=== PATIENT | male | born 1960 | race Caucasian/White ===

== ENCOUNTER 2018-10-28 15:37 | Emergency (ER) | payer MEDICAID ==
[~2018-10-28] VITALS: Ht 175.3 cm; Wt 118.0 kg
[2018-10-28 15:45] VITALS: BP 149/77
== END 2018-10-28 15:44 | disposition left against medical advice (07) ==
LOC: ER 15:37
DX: Z53.21 Procedure and treatment not carried out due to patient leaving prior to being seen by health care provider (principal)

== ENCOUNTER 2021-08-19 07:01 | Inpatient (IN) | payer OTHER ==
[~2021-08-19] VITALS: Ht 175.3 cm; Wt 102.5 kg
[~2021-08-19 07:01] MED LIST: LEVO500T89 MT
[2021-08-19] MEDS ORDERED: MORPHINE SULFATE 4 MG/ML CPJ (NOT FOR IM USE) IV STA (07:49)
[2021-08-19] MEDS ORDERED: MORPHINE SULFATE 2 MG/ML CPJ (NOT FOR IM USE) IV STA (08:15)
[2021-08-19 08:28] LABS: HEMATOCRIT. 34.6 % (42.0-52.0); HEMOGLOBIN. 10.9 g/dL (14.0-18.0); MEAN CORPUSCULAR HEMOGLOBIN 21.9 pg (28.0-32.0); MEAN CORPUSCULAR VOLUME 69.4 fL (80.0-94.0); MEAN PLATELET VOLUME 7.8 fl (7.4-10.4); PLATELET 382 x1000/uL (130-400); RED BLOOD CELL COUNT 4.99 mill/uL (4.7-6.1); RED CELL DISTRIBUTION WIDTH 22.4 % (11.6-14.6)
[2021-08-19 08:38] LABS: CHLORIDE 99 mEq/L (98-107)
[2021-08-19 08:52] LABS: CLARITY URINE TURBID (CLEAR); COLOR URINE YELLOW (YELLOW); KETONES URINE 2+ (NEGATIVE); LEUKOCYTE ESTERASE URINE 3+ (NEGATIVE); NITRITE URINE POSITIVE (NEGATIVE); OCCULT BLOOD URINE 2+ (NEGATIVE); PROTEIN URINE 2+ (NEGATIVE); SPECIFIC GRAVITY URINE 1.018 (1.005-1.030); UROBILINOGEN URINE 0.2 E.U./dL (0.2-1.0)
[2021-08-19] MEDS ORDERED: MORPHINE SULFATE 4 MG/ML CPJ (NOT FOR IM USE) IV ONE ×2 (09:15→11:00)
[2021-08-19 09:30] LABS: PLATELET ESTIMATE NORMAL
[2021-08-19] MEDS ORDERED: LEVOFLOXACIN 750MG PREMIX 150 ML IV ONE (09:30)
[2021-08-19] MEDS ORDERED: MORPHINE SULFATE 2 MG/ML CPJ (NOT FOR IM USE) IV ONE (09:45)
[2021-08-19] MEDS ORDERED: ONDANSETRON HCL 4MG/2ML INJ ONE (11:59)
[2021-08-19] MEDS ORDERED: ONDANSETRON HCL 4MG/2ML INJ IV ONE (12:30)
[2021-08-19] MEDS ORDERED: IPRATROPIUM/ALBUTEROL 0.5-3(2.5)MG/3ML NEB HHN PRN (13:15)
[2021-08-19] MEDS ORDERED: CLONIDINE 0.1MG TABLET PO PRN (13:15)
[2021-08-19] MEDS ORDERED: ACETAMINOPHEN 325MG TABLET PO PRN (13:15)
[2021-08-19] MEDS ORDERED: CEFTRIAXONE 1 G PREMIX 50 ML IV SCH ×2 (13:15)
[2021-08-19] MEDS: MORPHINE SULFATE 2 MG/ML CPJ (NOT FOR IM USE) IV PRN ×3 (14:33→22:29)
[2021-08-19] MEDS ORDERED: DEXTROSE 50% WATER 50ML SYRINGE IV PRN (15:00)
[2021-08-19] MEDS: DIPHENHYDRAMINE 50MG/ML VIAL IV PRN (16:44)
[2021-08-19] MEDS ORDERED: BLOOD SUGAR DIAGNOSTIC STRIP TEST SCH (17:00)
[2021-08-19] MEDS: INSULIN LISPRO 100 UNITS/ML SUBCUT SCH ×2 (18:24→22:52)
[2021-08-19 21:35] VITALS: BP 127/78
[2021-08-19 21:43] LABS: INR 1.9; PROTHROMBIN TIME 19.8 sec (9.6-11.0)
[2021-08-20] VITALS: BP 140/74
[2021-08-20] MEDS ORDERED: DEXTROSE 50% WATER 50ML SYRINGE IV PRN (00:15)
[2021-08-20] MEDS ORDERED: CLONIDINE 0.1MG TABLET PO PRN (00:15)
[2021-08-20] MEDS: INSULIN LISPRO 100 UNITS/ML SUBCUT SCH ×5 (00:30→21:14)
[2021-08-20] MEDS: BLOOD SUGAR DIAGNOSTIC STRIP TEST SCH ×5 (00:30→21:18)
[2021-08-20] MEDS ORDERED: NALOXONE HCL 0.4MG/ML VIAL IV PRN (00:30)
[2021-08-20] MEDS: SODIUM CHLORIDE 0.9% 1,000 ML IV SCH (02:40)
[2021-08-20] MEDS: MORPHINE SULFATE 2 MG/ML CPJ (NOT FOR IM USE) IV PRN ×5 (02:41→20:59)
[2021-08-20] MEDS: ONDANSETRON HCL 4MG/2ML INJ IV PRN ×3 (03:08→15:56)
[2021-08-20 08:00] VITALS: BP 98/59
[2021-08-20] MEDS: ACETAMINOPHEN 325MG TABLET PO PRN ×2 (08:20→18:10)
[2021-08-20 09:45] LABS: BASOPHILS % 0.8 % (0.0-2.0); EOSINOPHILS % 1.7 % (0.0-5.0); HEMATOCRIT. 34.2 % (42.0-52.0); HEMOGLOBIN. 10.7 g/dL (14.0-18.0); LYMPHOCYTES % 35.9 % (20.0-50.0); MEAN CORPUSCULAR HEMOGLOBIN 21.6 pg (28.0-32.0); MEAN CORPUSCULAR VOLUME 69.1 fL (80.0-94.0); MEAN PLATELET VOLUME 7.6 fl (7.4-10.4); MONOCYTES % 12.4 % (2.0-8.0); NEUTROPHILS % 49.2 % (40.0-76.0); PLATELET 402 x1000/uL (130-400); RED BLOOD CELL COUNT 4.95 mill/uL (4.7-6.1); RED CELL DISTRIBUTION WIDTH 23.6 % (11.6-14.6)
[2021-08-20 09:52] LABS: CHLORIDE 102 mEq/L (98-107)
[2021-08-20 09:59] LABS: LDL CHOLESTEROL 60 mg/dL (5-100)
[2021-08-20 10:00] LABS: HDL CHOLESTEROL 39 mg/dL (40-59)
[2021-08-20 12:00] VITALS: BP 114/61
[2021-08-20] MEDS: CEFTRIAXONE 1,000 MG in DEXTROSE 5% WATER 50 ML IV SCH (12:30)
[2021-08-20] MEDS ORDERED: CEFTRIAXONE 1,000 MG in DEXTROSE 5% WATER 50 ML IV SCH (13:00)
[2021-08-20] MEDS: ENOXAPARIN 30MG/0.3ML SYR SUBCUT SCH ×2 (13:32→20:57)
[2021-08-20] MEDS: INSULIN GLARGINE UD 100 UNITS/ML SYR SUBCUT SCH ×2 (14:37→21:18)
[2021-08-20 16:00] VITALS: BP 116/64
[2021-08-20 16:46] LABS: INR 1.7; PROTHROMBIN TIME 17.5 sec (9.6-11.0)
[2021-08-20] MEDS ORDERED: HYDROCODONE/ACETAMINOPHEN 5/325MG TABLET PO PRN (18:45)
[2021-08-20 20:00] VITALS: BP 135/86
[2021-08-20] MEDS: HYDROCODONE/ACETAMINOPHEN 10/325MG TABLET PO PRN (22:31)
[2021-08-21] VITALS: BP 145/84
[2021-08-21] MEDS: SODIUM CHLORIDE 0.9% 1,000 ML IV SCH ×2 (03:19→08:19)
[2021-08-21] MEDS: MORPHINE SULFATE 2 MG/ML CPJ (NOT FOR IM USE) IV PRN ×4 (03:24→20:05)
[2021-08-21] MEDS: ONDANSETRON HCL 4MG/2ML INJ IV PRN ×2 (03:32→10:45)
[2021-08-21 04:00] VITALS: BP 150/82
[2021-08-21] MEDS: HYDROCODONE/ACETAMINOPHEN 10/325MG TABLET PO PRN ×3 (05:39→18:22)
[2021-08-21] MEDS: INSULIN LISPRO 100 UNITS/ML SUBCUT SCH ×4 (05:50→21:55)
[2021-08-21] MEDS: BLOOD SUGAR DIAGNOSTIC STRIP TEST SCH ×4 (05:50→20:11)
[2021-08-21] MEDS: ENOXAPARIN 30MG/0.3ML SYR SUBCUT SCH ×2 (08:08→20:10)
[2021-08-21 09:43] LABS: BASOPHILS % 1.1 % (0.0-2.0); EOSINOPHILS % 2.6 % (0.0-5.0); HEMATOCRIT. 32.9 % (42.0-52.0); HEMOGLOBIN. 10.5 g/dL (14.0-18.0); LYMPHOCYTES % 40.9 % (20.0-50.0); MEAN CORPUSCULAR HEMOGLOBIN 22.6 pg (28.0-32.0); MEAN CORPUSCULAR VOLUME 70.7 fL (80.0-94.0); MEAN PLATELET VOLUME 8.7 fl (7.4-10.4); MONOCYTES % 11.7 % (2.0-8.0); NEUTROPHILS % 43.7 % (40.0-76.0); PLATELET 322 x1000/uL (130-400); RED BLOOD CELL COUNT 4.65 mill/uL (4.7-6.1); RED CELL DISTRIBUTION WIDTH 23.3 % (11.6-14.6)
[2021-08-21 09:56] LABS: CHLORIDE 103 mEq/L (98-107)
[2021-08-21] MEDS: INSULIN GLARGINE UD 100 UNITS/ML SYR SUBCUT SCH ×2 (10:46→21:55)
[2021-08-21] MEDS: CEFTRIAXONE 1,000 MG in DEXTROSE 5% WATER 50 ML IV SCH (11:58)
[2021-08-21] MEDS: DULOXETINE HCL 30MG DR CAPSULE PO SCH ×2 (12:05→20:10)
[2021-08-21 20:03] VITALS: BP 122/67
[2021-08-22] VITALS: BP 156/75
[2021-08-22] MEDS: MORPHINE SULFATE 2 MG/ML CPJ (NOT FOR IM USE) IV PRN ×6 (00:23→20:57)
[2021-08-22] MEDS: ONDANSETRON HCL 4MG/2ML INJ IV PRN ×3 (00:32→20:07)
[2021-08-22] MEDS: SODIUM CHLORIDE 0.9% 1,000 ML IV SCH ×2 (00:34→18:43)
[2021-08-22 04:00] VITALS: BP 128/58
[2021-08-22] MEDS: BLOOD SUGAR DIAGNOSTIC STRIP TEST SCH ×4 (06:17→21:39)
[2021-08-22] MEDS: INSULIN LISPRO 100 UNITS/ML SUBCUT SCH ×4 (06:28→21:39)
[2021-08-22] MEDS: HYDROCODONE/ACETAMINOPHEN 10/325MG TABLET PO PRN ×5 (06:29→23:17)
[2021-08-22 08:04] LABS: BASOPHILS % 0.5 % (0.0-2.0); EOSINOPHILS % 3.6 % (0.0-5.0); HEMATOCRIT. 32.7 % (42.0-52.0); HEMOGLOBIN. 10.1 g/dL (14.0-18.0); LYMPHOCYTES % 45.5 % (20.0-50.0); MEAN CORPUSCULAR HEMOGLOBIN 21.8 pg (28.0-32.0); MEAN CORPUSCULAR VOLUME 70.7 fL (80.0-94.0); MEAN PLATELET VOLUME 7.8 fl (7.4-10.4); MONOCYTES % 10.3 % (2.0-8.0); NEUTROPHILS % 40.1 % (40.0-76.0); PLATELET 313 x1000/uL (130-400); RED BLOOD CELL COUNT 4.63 mill/uL (4.7-6.1); RED CELL DISTRIBUTION WIDTH 23.7 % (11.6-14.6)
[2021-08-22 08:08] LABS: CHLORIDE 106 mEq/L (98-107)
[2021-08-22 08:14] VITALS: BP 131/86
[2021-08-22] MEDS: ENOXAPARIN 30MG/0.3ML SYR SUBCUT SCH ×2 (08:37→20:57)
[2021-08-22] MEDS: DULOXETINE HCL 30MG DR CAPSULE PO SCH ×2 (08:37→20:57)
[2021-08-22] MEDS: INSULIN GLARGINE UD 100 UNITS/ML SYR SUBCUT SCH ×2 (10:50→21:38)
[2021-08-22 12:27] VITALS: BP 151/88
[2021-08-22] MEDS: CEFTRIAXONE 1,000 MG in DEXTROSE 5% WATER 50 ML IV SCH (12:38)
[2021-08-22 16:34] VITALS: BP 129/68
[2021-08-22 20:00] VITALS: BP 131/71
[2021-08-23] VITALS: BP 164/87
[2021-08-23] MEDS: MORPHINE SULFATE 2 MG/ML CPJ (NOT FOR IM USE) IV PRN ×5 (03:45→22:56)
[2021-08-23 04:00] VITALS: BP 150/78
[2021-08-23] MEDS: HYDROCODONE/ACETAMINOPHEN 10/325MG TABLET PO PRN ×3 (06:18→21:28)
[2021-08-23] MEDS: BLOOD SUGAR DIAGNOSTIC STRIP TEST SCH ×4 (06:22→21:00)
[2021-08-23] MEDS: INSULIN LISPRO 100 UNITS/ML SUBCUT SCH ×4 (06:23→21:31)
[2021-08-23 08:00] VITALS: BP 129/75
[2021-08-23] MEDS: DULOXETINE HCL 30MG DR CAPSULE PO SCH ×2 (09:27→21:28)
[2021-08-23] MEDS: ONDANSETRON HCL 4MG/2ML INJ IV PRN (09:27)
[2021-08-23] MEDS: INSULIN GLARGINE UD 100 UNITS/ML SYR SUBCUT SCH ×2 (09:27→21:30)
[2021-08-23] MEDS: ENOXAPARIN 30MG/0.3ML SYR SUBCUT SCH ×2 (09:29→21:31)
[2021-08-23] MEDS: SODIUM CHLORIDE 0.9% 1,000 ML IV SCH (11:35)
[2021-08-23 11:56] LABS: BASOPHILS % 0.8 % (0.0-2.0); HEMATOCRIT. 32.6 % (42.0-52.0); HEMOGLOBIN. 10.2 g/dL (14.0-18.0); LYMPHOCYTES % 31.8 % (20.0-50.0); MEAN CORPUSCULAR HEMOGLOBIN 22.1 pg (28.0-32.0); MEAN CORPUSCULAR VOLUME 70.5 fL (80.0-94.0); MONOCYTES % 7.7 % (2.0-8.0); NEUTROPHILS % 56.7 % (40.0-76.0); PLATELET 326 x1000/uL (130-400); RED BLOOD CELL COUNT 4.62 mill/uL (4.7-6.1); RED CELL DISTRIBUTION WIDTH 23.8 % (11.6-14.6)
[2021-08-23 11:59] LABS: CHLORIDE 104 mEq/L (98-107)
[2021-08-23 12:26] VITALS: BP 125/65
[2021-08-23] MEDS: CEFTRIAXONE 1,000 MG in DEXTROSE 5% WATER 50 ML IV SCH (14:04)
[2021-08-23 16:20] VITALS: BP 127/70
[2021-08-23] MEDS ORDERED: COLISTIMETHATE SODIUM 300 MG in SODIUM CHLORIDE 0.9% 100 ML IV NR (19:00)
[2021-08-23 20:00] VITALS: BP 142/79
[2021-08-24] VITALS: BP 138/69
[2021-08-24] MEDS: DIPHENHYDRAMINE 50MG/ML VIAL IV PRN (00:59)
[2021-08-24] MEDS: MORPHINE SULFATE 2 MG/ML CPJ (NOT FOR IM USE) IV PRN ×4 (03:01→23:13)
[2021-08-24 04:00] VITALS: BP 119/72
[2021-08-24] MEDS: COLISTIMETHATE 150MG in SODIUM CHLORIDE 0.9% 100ML IV SCH (04:32)
[2021-08-24] MEDS: SODIUM CHLORIDE 0.9% 1,000 ML IV SCH ×2 (04:32→20:48)
[2021-08-24] MEDS: BLOOD SUGAR DIAGNOSTIC STRIP TEST SCH ×4 (06:12→20:48)
[2021-08-24] MEDS: INSULIN LISPRO 100 UNITS/ML SUBCUT SCH ×4 (06:13→20:48)
[2021-08-24 07:16] LABS: BASOPHILS % 0.9 % (0.0-2.0); EOSINOPHILS % 3.9 % (0.0-5.0); HEMATOCRIT. 32.5 % (42.0-52.0); HEMOGLOBIN. 10.1 g/dL (14.0-18.0); LYMPHOCYTES % 43.5 % (20.0-50.0); MEAN CORPUSCULAR HEMOGLOBIN 21.7 pg (28.0-32.0); MEAN CORPUSCULAR VOLUME 69.8 fL (80.0-94.0); MEAN PLATELET VOLUME 7.8 fl (7.4-10.4); MONOCYTES % 8.6 % (2.0-8.0); NEUTROPHILS % 43.1 % (40.0-76.0); PLATELET 304 x1000/uL (130-400); RED BLOOD CELL COUNT 4.65 mill/uL (4.7-6.1); RED CELL DISTRIBUTION WIDTH 23.5 % (11.6-14.6)
[2021-08-24 08:00] VITALS: BP 140/82
[2021-08-24 08:11] LABS: CHLORIDE 107 mEq/L (98-107)
[2021-08-24] MEDS: DULOXETINE HCL 30MG DR CAPSULE PO SCH ×2 (09:24→20:48)
[2021-08-24] MEDS: HYDROCODONE/ACETAMINOPHEN 10/325MG TABLET PO PRN ×3 (09:25→21:27)
[2021-08-24] MEDS: ONDANSETRON HCL 4MG/2ML INJ IV PRN (09:26)
[2021-08-24] MEDS: ENOXAPARIN 30MG/0.3ML SYR SUBCUT SCH ×2 (09:26→20:48)
[2021-08-24] MEDS: INSULIN GLARGINE UD 100 UNITS/ML SYR SUBCUT SCH ×2 (10:27→21:26)
[2021-08-24 12:00] VITALS: BP 120/82
[2021-08-24 16:00] VITALS: BP 118/80
[2021-08-24 20:00] VITALS: BP 151/76
[2021-08-25] VITALS: BP 132/77
[2021-08-25] MEDS: MORPHINE SULFATE 2 MG/ML CPJ (NOT FOR IM USE) IV PRN ×5 (03:45→21:25)
[2021-08-25 03:58] VITALS: BP 127/67
[2021-08-25] MEDS: BLOOD SUGAR DIAGNOSTIC STRIP TEST SCH ×4 (06:10→21:23)
[2021-08-25] MEDS: HYDROCODONE/ACETAMINOPHEN 10/325MG TABLET PO PRN (06:15)
[2021-08-25] MEDS: INSULIN LISPRO 100 UNITS/ML SUBCUT SCH ×4 (06:15→21:24)
[2021-08-25] MEDS: COLISTIMETHATE 150MG in SODIUM CHLORIDE 0.9% 100ML IV SCH ×2 (06:21→17:24)
[2021-08-25 08:00] VITALS: BP 139/87
[2021-08-25] MEDS: DULOXETINE HCL 30MG DR CAPSULE PO SCH ×2 (08:39→22:36)
[2021-08-25] MEDS: ENOXAPARIN 30MG/0.3ML SYR SUBCUT SCH ×2 (08:39→21:22)
[2021-08-25 12:00] VITALS: BP 150/80
[2021-08-25] MEDS ORDERED: NALOXONE HCL 0.4MG/ML VIAL IV PRN (12:45)
[2021-08-25] MEDS: INSULIN GLARGINE UD 100 UNITS/ML SYR SUBCUT SCH ×2 (12:47→22:31)
[2021-08-25] MEDS: SODIUM CHLORIDE 0.9% 1,000 ML IV SCH (13:35)
[2021-08-25 15:57] LABS: BASOPHILS % 1.1 % (0.0-2.0); EOSINOPHILS % 3.3 % (0.0-5.0); HEMATOCRIT. 33.5 % (42.0-52.0); HEMOGLOBIN. 10.2 g/dL (14.0-18.0); LYMPHOCYTES % 37.7 % (20.0-50.0); MEAN CORPUSCULAR HEMOGLOBIN 21.1 pg (28.0-32.0); MEAN CORPUSCULAR VOLUME 69.7 fL (80.0-94.0); MEAN PLATELET VOLUME 8.3 fl (7.4-10.4); MONOCYTES % 8.6 % (2.0-8.0); NEUTROPHILS % 49.3 % (40.0-76.0); PLATELET 342 x1000/uL (130-400); RED BLOOD CELL COUNT 4.81 mill/uL (4.7-6.1); RED CELL DISTRIBUTION WIDTH 23.4 % (11.6-14.6)
[2021-08-25 16:00] VITALS: BP 117/68
[2021-08-25 16:16] LABS: CHLORIDE 107 mEq/L (98-107)
[2021-08-25 20:00] VITALS: BP 121/74
[2021-08-25] MEDS: LAMOTRIGINE 25MG TABLET PO SCH (21:23)
[2021-08-25] MEDS: DIPHENHYDRAMINE 50MG/ML VIAL IV PRN (22:30)
[2021-08-26] VITALS: BP 132/79
[2021-08-26] MEDS ORDERED: MORPHINE SULFATE 2 MG/ML CPJ (NOT FOR IM USE) IV PRN (01:30)
[2021-08-26] MEDS ORDERED: KCL 20MEQ/100ML PREMIX 100 ML IV NR (02:00)
[2021-08-26] MEDS: ONDANSETRON HCL 4MG/2ML INJ IV PRN ×2 (02:15→15:19)
[2021-08-26] MEDS: DIPHENHYDRAMINE 50MG/ML VIAL IV PRN ×5 (03:07→23:47)
[2021-08-26 03:42] VITALS: BP 128/86
[2021-08-26] MEDS: SODIUM CHLORIDE 0.9% 1,000 ML IV SCH (06:29)
[2021-08-26] MEDS: COLISTIMETHATE 150MG in SODIUM CHLORIDE 0.9% 100ML IV SCH ×2 (06:29→17:21)
[2021-08-26] MEDS: BLOOD SUGAR DIAGNOSTIC STRIP TEST SCH ×4 (06:30→20:42)
[2021-08-26] MEDS: INSULIN LISPRO 100 UNITS/ML SUBCUT SCH ×4 (06:30→21:15)
[2021-08-26 08:00] VITALS: BP 127/79
[2021-08-26] MEDS: DULOXETINE HCL 30MG DR CAPSULE PO SCH ×2 (09:16→20:07)
[2021-08-26] MEDS: LAMOTRIGINE 25MG TABLET PO SCH ×2 (09:16→20:07)
[2021-08-26] MEDS: ENOXAPARIN 30MG/0.3ML SYR SUBCUT SCH ×2 (09:16→20:06)
[2021-08-26] MEDS: MORPHINE SULFATE 2 MG/ML CPJ (NOT FOR IM USE) IV PRN ×4 (09:17→23:47)
[2021-08-26] MEDS: INSULIN GLARGINE UD 100 UNITS/ML SYR SUBCUT SCH ×2 (10:00→21:14)
[2021-08-26] MEDS: ACETAMINOPHEN 325MG TABLET PO PRN (11:50)
[2021-08-26 12:00] VITALS: BP 143/82
[2021-08-26 15:28] LABS: BASOPHILS % 0.6 % (0.0-2.0); EOSINOPHILS % 2.3 % (0.0-5.0); HEMOGLOBIN. 8.5 g/dL (14.0-18.0); MEAN CORPUSCULAR HEMOGLOBIN 21.6 pg (28.0-32.0); MEAN CORPUSCULAR VOLUME 70.8 fL (80.0-94.0); MEAN PLATELET VOLUME 7.9 fl (7.4-10.4); MONOCYTES % 9.7 % (2.0-8.0); NEUTROPHILS % 45.4 % (40.0-76.0); PLATELET 273 x1000/uL (130-400); RED BLOOD CELL COUNT 3.95 mill/uL (4.7-6.1); RED CELL DISTRIBUTION WIDTH 23.1 % (11.6-14.6)
[2021-08-26 15:38] LABS: CHLORIDE 116 mEq/L (98-107)
[2021-08-26 16:00] VITALS: BP 147/84
[2021-08-26] MEDS ORDERED: POTASSIUM CHLORIDE 20MEQ TABLET SR PO NR (16:30)
[2021-08-26] MEDS ORDERED: KCL 20MEQ/100ML PREMIX 100 ML IV SCH ×2 (17:30→20:00)
[2021-08-26 20:00] VITALS: BP 141/77
[2021-08-27] VITALS: BP 131/77
[2021-08-27] MEDS ORDERED: KCL 20MEQ/100ML PREMIX 100 ML IV NR (02:00)
[2021-08-27] MEDS: DIPHENHYDRAMINE 50MG/ML VIAL IV PRN ×5 (03:45→21:23)
[2021-08-27] MEDS: MORPHINE SULFATE 2 MG/ML CPJ (NOT FOR IM USE) IV PRN ×5 (03:46→21:11)
[2021-08-27 04:00] VITALS: BP 129/79
[2021-08-27] MEDS: COLISTIMETHATE 150MG in SODIUM CHLORIDE 0.9% 100ML IV SCH ×2 (05:38→18:12)
[2021-08-27 07:04] LABS: CHLORIDE 107 mEq/L (98-107)
[2021-08-27] MEDS: BLOOD SUGAR DIAGNOSTIC STRIP TEST SCH ×4 (07:10→21:00)
[2021-08-27] MEDS: INSULIN LISPRO 100 UNITS/ML SUBCUT SCH ×4 (07:40→21:00)
[2021-08-27 08:00] VITALS: BP 131/81
[2021-08-27] MEDS: ENOXAPARIN 30MG/0.3ML SYR SUBCUT SCH ×2 (08:13→21:19)
[2021-08-27] MEDS: DULOXETINE HCL 30MG DR CAPSULE PO SCH ×2 (08:14→21:19)
[2021-08-27] MEDS: LAMOTRIGINE 25MG TABLET PO SCH ×2 (08:14→21:19)
[2021-08-27] MEDS: INSULIN GLARGINE UD 100 UNITS/ML SYR SUBCUT SCH ×2 (10:00→21:21)
[2021-08-27 12:00] VITALS: BP 103/68
[2021-08-27] MEDS ORDERED: MAGNESIUM 2 G PREMIX 50 ML IV NR (13:30)
[2021-08-27] MEDS: ONDANSETRON HCL 4MG/2ML INJ IV PRN (14:55)
[2021-08-27 16:00] VITALS: BP 128/79
[2021-08-27] MEDS: ACETAMINOPHEN 325MG TABLET PO PRN (18:12)
[2021-08-27 20:00] VITALS: BP 135/81
[2021-08-28] VITALS: BP 140/66
[2021-08-28] MEDS: DIPHENHYDRAMINE 50MG/ML VIAL IV PRN ×4 (01:17→15:29)
[2021-08-28] MEDS: MORPHINE SULFATE 2 MG/ML CPJ (NOT FOR IM USE) IV PRN ×5 (01:21→21:23)
[2021-08-28] MEDS: ONDANSETRON HCL 4MG/2ML INJ IV PRN ×4 (01:28→20:46)
[2021-08-28 04:00] VITALS: BP 132/83
[2021-08-28] MEDS: COLISTIMETHATE 150MG in SODIUM CHLORIDE 0.9% 100ML IV SCH ×2 (05:30→18:16)
[2021-08-28 06:42] LABS: BASOPHILS % 1.2 % (0.0-2.0); EOSINOPHILS % 2.9 % (0.0-5.0); HEMATOCRIT. 37.1 % (42.0-52.0); HEMOGLOBIN. 11.2 g/dL (14.0-18.0); LYMPHOCYTES % 37.4 % (20.0-50.0); MEAN CORPUSCULAR HEMOGLOBIN 21.3 pg (28.0-32.0); MEAN CORPUSCULAR VOLUME 70.7 fL (80.0-94.0); MEAN PLATELET VOLUME 8.5 fl (7.4-10.4); MONOCYTES % 13.2 % (2.0-8.0); NEUTROPHILS % 45.3 % (40.0-76.0); PLATELET 372 x1000/uL (130-400); RED BLOOD CELL COUNT 5.24 mill/uL (4.7-6.1); RED CELL DISTRIBUTION WIDTH 23.6 % (11.6-14.6)
[2021-08-28 06:55] LABS: CHLORIDE 106 mEq/L (98-107)
[2021-08-28] MEDS: BLOOD SUGAR DIAGNOSTIC STRIP TEST SCH ×4 (07:10→21:42)
[2021-08-28] MEDS: INSULIN LISPRO 100 UNITS/ML SUBCUT SCH ×4 (07:40→21:00)
[2021-08-28 08:00] VITALS: BP 140/85
[2021-08-28] MEDS: LAMOTRIGINE 25MG TABLET PO SCH ×2 (08:32→21:06)
[2021-08-28] MEDS: DULOXETINE HCL 30MG DR CAPSULE PO SCH ×2 (08:32→21:07)
[2021-08-28] MEDS: ENOXAPARIN 30MG/0.3ML SYR SUBCUT SCH ×2 (08:33→21:06)
[2021-08-28] MEDS: INSULIN GLARGINE UD 100 UNITS/ML SYR SUBCUT SCH ×2 (09:57→22:00)
[2021-08-28 12:00] VITALS: BP 138/84
[2021-08-28 16:00] VITALS: BP 156/88
[2021-08-28 20:00] VITALS: BP 131/78
[2021-08-28] MEDS: ACETAMINOPHEN 325MG TABLET PO PRN (20:46)
[2021-08-29] VITALS (7 sets, daily range): BP systolic 96–144; BP diastolic 66–88
[2021-08-29] MEDS: DIPHENHYDRAMINE 50MG/ML VIAL IV PRN ×3 (01:02→22:19)
[2021-08-29] MEDS: ONDANSETRON HCL 4MG/2ML INJ IV PRN ×3 (01:28→21:28)
[2021-08-29] MEDS: MORPHINE SULFATE 2 MG/ML CPJ (NOT FOR IM USE) IV PRN ×5 (01:31→21:21)
[2021-08-29] MEDS: COLISTIMETHATE 150MG in SODIUM CHLORIDE 0.9% 100ML IV SCH ×2 (06:18→19:41)
[2021-08-29] MEDS: BLOOD SUGAR DIAGNOSTIC STRIP TEST SCH ×4 (07:10→21:21)
[2021-08-29] MEDS: INSULIN LISPRO 100 UNITS/ML SUBCUT SCH ×4 (07:40→21:00)
[2021-08-29 07:42] LABS: CHLORIDE 104 mEq/L (98-107)
[2021-08-29 07:53] LABS: BASOPHILS % 0.8 % (0.0-2.0); HEMATOCRIT. 38.1 % (42.0-52.0); HEMOGLOBIN. 11.8 g/dL (14.0-18.0); LYMPHOCYTES % 29.6 % (20.0-50.0); MEAN CORPUSCULAR HEMOGLOBIN 22.1 pg (28.0-32.0); MEAN CORPUSCULAR VOLUME 71.8 fL (80.0-94.0); MEAN PLATELET VOLUME 8.6 fl (7.4-10.4); MONOCYTES % 9.6 % (2.0-8.0); PLATELET 394 x1000/uL (130-400); RED BLOOD CELL COUNT 5.31 mill/uL (4.7-6.1); RED CELL DISTRIBUTION WIDTH 24.5 % (11.6-14.6)
[2021-08-29] MEDS: DULOXETINE HCL 30MG DR CAPSULE PO SCH ×2 (09:06→21:21)
[2021-08-29] MEDS: LAMOTRIGINE 25MG TABLET PO SCH ×2 (09:06→21:21)
[2021-08-29] MEDS: ENOXAPARIN 30MG/0.3ML SYR SUBCUT SCH ×2 (09:06→21:29)
[2021-08-29] MEDS: INSULIN GLARGINE UD 100 UNITS/ML SYR SUBCUT SCH ×2 (11:37→22:00)
[2021-08-30] VITALS: BP 129/85
[2021-08-30] MEDS: MORPHINE SULFATE 2 MG/ML CPJ (NOT FOR IM USE) IV PRN ×3 (03:11→14:06)
[2021-08-30] MEDS: DIPHENHYDRAMINE 50MG/ML VIAL IV PRN (03:11)
[2021-08-30 04:00] VITALS: BP 131/81
[2021-08-30 06:36] LABS: BASOPHILS % 0.8 % (0.0-2.0); EOSINOPHILS % 2.5 % (0.0-5.0); HEMATOCRIT. 35.6 % (42.0-52.0); HEMOGLOBIN. 11.1 g/dL (14.0-18.0); LYMPHOCYTES % 27.9 % (20.0-50.0); MEAN CORPUSCULAR HEMOGLOBIN 22.2 pg (28.0-32.0); MEAN PLATELET VOLUME 8.8 fl (7.4-10.4); NEUTROPHILS % 56.8 % (40.0-76.0); PLATELET 383 x1000/uL (130-400); RED BLOOD CELL COUNT 5.02 mill/uL (4.7-6.1); RED CELL DISTRIBUTION WIDTH 24.1 % (11.6-14.6)
[2021-08-30 06:38] LABS: CHLORIDE 104 mEq/L (98-107)
[2021-08-30] MEDS: BLOOD SUGAR DIAGNOSTIC STRIP TEST SCH ×2 (06:57→12:39)
[2021-08-30] MEDS: INSULIN LISPRO 100 UNITS/ML SUBCUT SCH ×2 (07:50→13:02)
[2021-08-30 08:00] VITALS: BP 144/89
[2021-08-30] MEDS: DULOXETINE HCL 30MG DR CAPSULE PO SCH (09:15)
[2021-08-30] MEDS: LAMOTRIGINE 25MG TABLET PO SCH (09:15)
[2021-08-30] MEDS: ONDANSETRON HCL 4MG/2ML INJ IV PRN (09:16)
[2021-08-30] MEDS: ENOXAPARIN 30MG/0.3ML SYR SUBCUT SCH (09:16)
[2021-08-30] MEDS: INSULIN GLARGINE UD 100 UNITS/ML SYR SUBCUT SCH (09:32)
[2021-08-30] MEDS ORDERED: LAM25 PO (10:30)
[2021-08-30] MEDS ORDERED: DULO30CA2 PO (10:30)
[2021-08-30 12:00] VITALS: BP 133/84
[2021-08-30 13:18] VITALS: BP 144/89
[2021-08-30 14:06] VITALS: BP 135/87
[2021-08-30] MEDS ORDERED: ENOXAPARIN 30MG/0.3ML SYR SUBCUT SCH (21:00)
== END 2021-08-30 15:32 | disposition home health service (06) | DRG 463 ==
LOC: ER 07:01 → EDBEDREQ 12:30 → ENRESERV 20:25 → 8WST 21:41 → 6EST 08-29 09:47
PROVIDERS: ADMIT Internal Medicine; ATTEND Internal Medicine
DX: N30.00 Acute cystitis without hematuria (principal); L89.153 Pressure ulcer of sacral region, stage 3; D68.9 Coagulation defect, unspecified; E46 Unspecified protein-calorie malnutrition; I11.0 Hypertensive heart disease with heart failure; L89.213 Pressure ulcer of right hip, stage 3; I50.32 Chronic diastolic (congestive) heart failure; F33.1 Major depressive disorder, recurrent, moderate; E11.65 Type 2 diabetes mellitus with hyperglycemia; B96.1 Klebsiella pneumoniae [K. pneumoniae] as the cause of diseases classified elsewhere; K76.0 Fatty (change of) liver, not elsewhere classified; K40.20 Bilateral inguinal hernia, without obstruction or gangrene, not specified as recurrent; K42.9 Umbilical hernia without obstruction or gangrene; M51.16 Intervertebral disc disorders with radiculopathy, lumbar region; K57.90 Diverticulosis of intestine, part unspecified, without perforation or abscess without bleeding; K80.20 Calculus of gallbladder without cholecystitis without obstruction; Z16.19 Resistance to other specified beta lactam antibiotics; M79.604 Pain in right leg; M79.605 Pain in left leg; F41.9 Anxiety disorder, unspecified; M47.20 Other spondylosis with radiculopathy, site unspecified; K44.9 Diaphragmatic hernia without obstruction or gangrene; R00.0 Tachycardia, unspecified; E78.00 Pure hypercholesterolemia, unspecified; F43.10 Post-traumatic stress disorder, unspecified; I25.2 Old myocardial infarction; Z79.4 Long term (current) use of insulin; Z85.46 Personal history of malignant neoplasm of prostate; Z95.828 Presence of other vascular implants and grafts; Z86.718 Personal history of other venous thrombosis and embolism; Z68.33 Body mass index [BMI] 33.0-33.9, adult
CPT/HCPCS: 36415; 74176; 80048; 80053; 80061; 81003; 82040; 82962; 83036; 83735; 84134; 84145; 84443; 85025; 87077; 87186; 93005; 93970; 97163; 99285; C1893; J0696; J0770; J1200; J1650; J1815; J1956; J2270; J2405; J3475; J3480; J7030; J7050; J7060

== ENCOUNTER 2021-09-11 13:50 | Emergency (ER) | payer OTHER ==
[~2021-09-11] VITALS: Ht 177.8 cm; Wt 95.0 kg
[~2021-09-11 13:50] MED LIST changes: +DULO30CA2 PO; +LAM25 PO; -LEVO500T89 MT
[2021-09-11] MEDS ORDERED: MORPHINE SULFATE 4 MG/ML CPJ (NOT FOR IM USE) IV STA (16:56)
[2021-09-11 18:04] LABS: BASOPHILS % 0.8 % (0.0-2.0); EOSINOPHILS % 3.6 % (0.0-5.0); HEMOGLOBIN. 9.9 g/dL (14.0-18.0); LYMPHOCYTES % 31.4 % (20.0-50.0); MEAN CORPUSCULAR HEMOGLOBIN 21.4 pg (28.0-32.0); MEAN PLATELET VOLUME 6.9 fl (7.4-10.4); NEUTROPHILS % 56.2 % (40.0-76.0); PLATELET 309 x1000/uL (130-400); RED BLOOD CELL COUNT 4.66 mill/uL (4.7-6.1); RED CELL DISTRIBUTION WIDTH 24.5 % (11.6-14.6)
[2021-09-11 18:11] LABS: CHLORIDE 107 mEq/L (98-107)
[2021-09-11] MEDS ORDERED: KETOROLAC 60MG/2ML VIAL IM ONE (18:15)
[2021-09-11 18:44] LABS: PLATELET ESTIMATE NORMAL
[2021-09-11] MEDS ORDERED: MORPHINE SULFATE 4 MG/ML CPJ (NOT FOR IM USE) IV SCH (21:30)
[2021-09-12 00:35] LABS: CLARITY URINE TURBID (CLEAR); COLOR URINE YELLOW (YELLOW); KETONES URINE NEGATIVE (NEGATIVE); LEUKOCYTE ESTERASE URINE 3+ (NEGATIVE); NITRITE URINE POSITIVE (NEGATIVE); OCCULT BLOOD URINE 3+ (NEGATIVE); PH URINE 5.5 (4.5-8.0); PROTEIN URINE 2+ (NEGATIVE); SPECIFIC GRAVITY URINE 1.013 (1.005-1.030); UROBILINOGEN URINE 0.2 E.U./dL (0.2-1.0)
[2021-09-12 05:06] VITALS: BP 151/81
== END 2021-09-12 05:07 | disposition home or self-care (01) ==
LOC: ER 13:50
DX: G89.29 Other chronic pain (principal); M54.50 Low back pain, unspecified; M79.662 Pain in left lower leg; M79.661 Pain in right lower leg; I11.0 Hypertensive heart disease with heart failure; I50.9 Heart failure, unspecified; E11.9 Type 2 diabetes mellitus without complications; I25.2 Old myocardial infarction; Z86.718 Personal history of other venous thrombosis and embolism; Z79.01 Long term (current) use of anticoagulants; Z85.46 Personal history of malignant neoplasm of prostate
CPT/HCPCS: 36415; 71045; 73521; 73560; 74176; 80053; 81003; 83605; 84484; 85025; 87086; 96374; 99285; J1885; J2270

== ENCOUNTER 2021-11-21 19:38 | Emergency (ER) | payer MEDICAID, OTHER ==
[~2021-11-21] VITALS: Ht 175.3 cm; Wt 82.0 kg
[2021-11-21] MEDS ORDERED: HYDROCODONE/ACETAMINOPHEN 5/325MG TABLET PO ONE (20:00)
[2021-11-21 21:13] LABS: CLARITY URINE TURBID (CLEAR); COLOR URINE YELLOW (YELLOW); KETONES URINE NEGATIVE (NEGATIVE); LEUKOCYTE ESTERASE URINE 2+ (NEGATIVE); NITRITE URINE POSITIVE (NEGATIVE); OCCULT BLOOD URINE 3+ (NEGATIVE); PH URINE 7.5 (4.5-8.0); PROTEIN URINE TRACE (NEGATIVE); SPECIFIC GRAVITY URINE 1.033 (1.005-1.030); UROBILINOGEN URINE 0.2 E.U./dL (0.2-1.0)
[2021-11-21] MEDS ORDERED: CIPR-263 MT (21:30)
[2021-11-21] MEDS ORDERED: LEVOFLOXACIN 250MG TABLET PO ONE (21:30)
[2021-11-21] MEDS ORDERED: KETOROLAC 60MG/2ML VIAL IM ONE (22:15)
[2021-11-21 23:08] VITALS: BP 109/68
[2021-11-24] MEDS ORDERED: INSU100I28 SQ (11:38)
[2021-11-24] MEDS ORDERED: HYDR-4009 PO (11:38)
== END 2021-11-21 23:10 | disposition home or self-care (01) ==
LOC: ER 19:38
DX: N39.0 Urinary tract infection, site not specified (principal); R33.8 Other retention of urine; I73.9 Peripheral vascular disease, unspecified; E11.9 Type 2 diabetes mellitus without complications; I10 Essential (primary) hypertension; Z85.46 Personal history of malignant neoplasm of prostate
CPT/HCPCS: 81003; 87077; 87086; 87186; 96372; 99283; J1885

== ENCOUNTER 2021-12-02 12:30 | Inpatient (IN) | payer OTHER ==
[~2021-12-02] VITALS: Ht 175.3 cm; Wt 97.5 kg
[~2021-12-02 12:30] MED LIST changes: +CIPR-263 MT; +HYDR-4009 PO; +INSU100I28 SQ
[2021-12-02] MEDS ORDERED: FAMOTIDINE 20MG/2ML VIAL IV STA (12:52)
[2021-12-02] MEDS ORDERED: MORPHINE SULFATE 4 MG/ML CPJ (NOT FOR IM USE) IV ONE ×2 (13:00→17:15)
[2021-12-02] MEDS ORDERED: SODIUM CHLORIDE 0.9% 500 ML IV ONE ×2 (13:00→17:15)
[2021-12-02 13:55] LABS: BASOPHILS % 0.5 % (0.0-2.0); EOSINOPHILS % 0.2 % (0.0-5.0); HEMATOCRIT. 39.9 % (42.0-52.0); HEMOGLOBIN. 12.2 g/dL (14.0-18.0); LYMPHOCYTES % 21.6 % (20.0-50.0); MEAN CORPUSCULAR HEMOGLOBIN 23.5 pg (28.0-32.0); MEAN CORPUSCULAR VOLUME 76.7 fL (80.0-94.0); MEAN PLATELET VOLUME 8.6 fl (7.4-10.4); MONOCYTES % 6.3 % (2.0-8.0); NEUTROPHILS % 71.4 % (40.0-76.0); PLATELET 262 x1000/uL (130-400); RED CELL DISTRIBUTION WIDTH 25.1 % (11.6-14.6)
[2021-12-02 14:02] LABS: CHLORIDE 103 mEq/L (98-107)
[2021-12-02 15:12] LABS: PLATELET ESTIMATE NORMAL
[2021-12-02] MEDS ORDERED: ONDANSETRON HCL 4MG/2ML INJ IV ONE (15:15)
[2021-12-02 16:23] LABS: CLARITY URINE CLEAR (CLEAR); COLOR URINE YELLOW (YELLOW); KETONES URINE 1+ (NEGATIVE); LEUKOCYTE ESTERASE URINE TRACE (NEGATIVE); NITRITE URINE NEGATIVE (NEGATIVE); OCCULT BLOOD URINE 2+ (NEGATIVE); PROTEIN URINE 1+ (NEGATIVE); SPECIFIC GRAVITY URINE 1.031 (1.005-1.030); UROBILINOGEN URINE 0.2 E.U./dL (0.2-1.0)
[2021-12-02] MEDS ORDERED: MEROPENEM 1,000 MG in SODIUM CHLORIDE 0.9% 100 ML IV ONE (17:45)
[2021-12-02] MEDS ORDERED: SODIUM CHLORIDE 0.9% 1,000 ML IV ONE (19:00)
[2021-12-02] MEDS: ONDANSETRON HCL 4MG/2ML INJ IV PRN (21:24)
[2021-12-02] MEDS: HYDROCODONE/ACETAMINOPHEN 10/325MG TABLET PO PRN (21:26)
[2021-12-03] MEDS ORDERED: NALOXONE HCL 0.4 MG/ML 1ML VIAL IV PRN (00:30)
[2021-12-03] MEDS ORDERED: MORPHINE SULFATE 2 MG/ML CPJ (NOT FOR IM USE) IV SCH (00:30)
[2021-12-03 04:06] VITALS: BP 145/84
[2021-12-03 04:07] VITALS: BP 145/84
[2021-12-03] MEDS ORDERED: LEVO500T89 PO (05:21)
[2021-12-03] MEDS ORDERED: LORA-249 PO (05:21)
[2021-12-03] MEDS ORDERED: METH-773 PO (05:21)
[2021-12-03] MEDS ORDERED: PANT40TA51 MT (05:21)
[2021-12-03] MEDS ORDERED: MELO-106 MT (05:21)
[2021-12-03] MEDS ORDERED: DEXTROSE 50% WATER 50ML SYRINGE IV PRN (05:45)
[2021-12-03] MEDS: BLOOD SUGAR DIAGNOSTIC STRIP TEST SCH ×4 (06:21→21:41)
[2021-12-03 06:33] LABS: HEMATOCRIT 31.4 % (42.0-52.0); HEMOGLOBIN 9.7 g/dL (14.0-18.0); MEAN CORPUSCULAR HEMOGLOBIN 23.1 pg (28.0-32.0); PLATELET 210 x1000/uL (130-400); RED BLOOD CELL COUNT 4.18 mill/uL (4.7-6.1); RED CELL DISTRIBUTION WIDTH 23.6 % (11.6-14.6)
[2021-12-03 06:42] LABS: CHLORIDE 109 mEq/L (98-107)
[2021-12-03 06:49] LABS: LDL CHOLESTEROL 45 mg/dL (5-100)
[2021-12-03 06:51] LABS: HDL CHOLESTEROL 37 mg/dL (40-59)
[2021-12-03] MEDS: INSULIN LISPRO 100 UNITS/ML SUBCUT SCH ×4 (06:58→22:31)
[2021-12-03] MEDS ORDERED: CEFTRIAXONE 1,000 MG in DEXTROSE 5% WATER 50 ML IV SCH (07:00)
[2021-12-03 08:00] VITALS: BP_SYST 144; BP_DIAS 78; BP_DIAS 84
[2021-12-03] MEDS: HYDROCODONE/ACETAMINOPHEN 10/325MG TABLET PO PRN ×3 (09:29→21:39)
[2021-12-03] MEDS: ONDANSETRON HCL 4MG/2ML INJ IV PRN ×2 (09:29→21:39)
[2021-12-03] MEDS ORDERED: MORPHINE SULFATE 0.5MG/ML SYR 1ML(NEO) IV ONE (11:15)
[2021-12-03] MEDS ORDERED: MORPHINE SULFATE 2 MG/ML CPJ (NOT FOR IM USE) IV PRN (11:15)
[2021-12-03] MEDS ORDERED: MORPHINE SULFATE 2 MG/ML CPJ (NOT FOR IM USE) IV NR (11:30)
[2021-12-03] MEDS: ENOXAPARIN 40MG/0.4ML SYR SUBCUT SCH (11:35)
[2021-12-03] MEDS: BENAZEPRIL 10MG TABLET PO SCH (11:39)
[2021-12-03] MEDS: INSULIN GLARGINE UD 100 UNITS/ML SYR SUBCUT SCH ×2 (11:41→22:32)
[2021-12-03 12:00] VITALS: BP 149/69
[2021-12-03] MEDS: AMPICILLIN SOD/SULBACTAM NA 3 G in SODIUM CHLORIDE 0.9% 100 ML IV SCH ×2 (14:01→19:06)
[2021-12-03 16:00] VITALS: BP 145/74
[2021-12-03 20:00] VITALS: BP 110/66
[2021-12-03] MEDS ORDERED: AMOX-424 MT (20:41)
[2021-12-03] MEDS ORDERED: ZOLPIDEM TARTRATE 5MG TABLET PO PRN (22:00)
[2021-12-04] VITALS: BP 108/60
[2021-12-04] MEDS: AMPICILLIN SOD/SULBACTAM NA 3 G in SODIUM CHLORIDE 0.9% 100 ML IV SCH ×4 (00:49→18:00)
[2021-12-04 04:00] VITALS: BP 100/56
[2021-12-04] MEDS: BLOOD SUGAR DIAGNOSTIC STRIP TEST SCH ×3 (06:31→17:10)
[2021-12-04] MEDS: INSULIN LISPRO 100 UNITS/ML SUBCUT SCH ×3 (06:34→17:40)
[2021-12-04 08:00] VITALS: BP 108/74
[2021-12-04] MEDS: BENAZEPRIL 10MG TABLET PO SCH (09:00)
[2021-12-04] MEDS: ONDANSETRON HCL 4MG/2ML INJ IV PRN (09:56)
[2021-12-04] MEDS: ENOXAPARIN 40MG/0.4ML SYR SUBCUT SCH (09:57)
[2021-12-04] MEDS: INSULIN GLARGINE UD 100 UNITS/ML SYR SUBCUT SCH (09:58)
[2021-12-04] MEDS: HYDROCODONE/ACETAMINOPHEN 10/325MG TABLET PO PRN ×2 (09:59→14:42)
[2021-12-04 12:00] VITALS: BP 113/67
[2021-12-04 14:20] VITALS: BP 113/68
[2021-12-04 16:00] VITALS: BP 118/70
== END 2021-12-04 17:50 | disposition home health service (06) | DRG 720 ==
LOC: ER 12:42 → MICUSO 19:29 → 8WST 12-03 01:36
PROVIDERS: ADMIT Internal Medicine; ATTEND Internal Medicine
DX: A41.9 Sepsis, unspecified organism (principal); L89.153 Pressure ulcer of sacral region, stage 3; E46 Unspecified protein-calorie malnutrition; E11.51 Type 2 diabetes mellitus with diabetic peripheral angiopathy without gangrene; D64.9 Anemia, unspecified; E11.65 Type 2 diabetes mellitus with hyperglycemia; I10 Essential (primary) hypertension; M48.00 Spinal stenosis, site unspecified; N39.0 Urinary tract infection, site not specified; Z20.822 Contact with and (suspected) exposure to COVID-19; I25.2 Old myocardial infarction; Z68.31 Body mass index [BMI] 31.0-31.9, adult; Z85.46 Personal history of malignant neoplasm of prostate
CPT/HCPCS: 36415; 71045; 80048; 80053; 80061; 81003; 82040; 82962; 83036; 83605; 84134; 84484; 85025; 85027; 87426; 93005; 93923; 99291; J0295; J0696; J1650; J1815; J2185; J2270; J2405; J3490; J7030; J7040; J7050; J7060

== ENCOUNTER 2021-12-12 12:26 | Inpatient (IN) | payer OTHER ==
[~2021-12-12] VITALS: Ht 175.3 cm; Wt 86.2 kg
[~2021-12-12 12:26] MED LIST changes: +AMOX-424 MT; -CIPR-263 MT; +LORA-249 PO; +MELO-106 MT; +METH-773 PO; +PANT40TA51 MT
[2021-12-12] MEDS ORDERED: ONDANSETRON HCL 4MG/2ML INJ IV STA (12:55)
[2021-12-12] MEDS ORDERED: VANCOMYCIN 1G PREMIX 200 ML IV SCH (13:00)
[2021-12-12] MEDS ORDERED: VANCOMYCIN 1G PREMIX 200 ML IV ONE (13:00)
[2021-12-12] MEDS ORDERED: SODIUM CHLORIDE 0.9% 1000ML BAG (SEPSIS BOLUS) IV ONE (13:00)
[2021-12-12] MEDS ORDERED: VANCOMYCIN 1GM PMX (XELLIA) 200 ML IV SCH ×2 (13:00→13:28)
[2021-12-12] MEDS ORDERED: PIPERACILLIN/TAZ 3.375G PREMIX 50 ML IV ONE (13:00)
[2021-12-12 13:17] LABS: CLARITY URINE CLOUDY (CLEAR); COLOR URINE DARK YELLOW (YELLOW); KETONES URINE NEGATIVE (NEGATIVE); LEUKOCYTE ESTERASE URINE 3+ (NEGATIVE); NITRITE URINE NEGATIVE (NEGATIVE); OCCULT BLOOD URINE 3+ (NEGATIVE); PROTEIN URINE 2+ (NEGATIVE); UROBILINOGEN URINE 0.2 E.U./dL (0.2-1.0)
[2021-12-12 14:25] LABS: BASOPHILS % 0.7 % (0.0-2.0); EOSINOPHILS % 2.7 % (0.0-5.0); HEMATOCRIT. 28.5 % (42.0-52.0); HEMOGLOBIN. 8.8 g/dL (14.0-18.0); LYMPHOCYTES % 22.8 % (20.0-50.0); MEAN CORPUSCULAR HEMOGLOBIN 23.3 pg (28.0-32.0); MEAN CORPUSCULAR VOLUME 75.8 fL (80.0-94.0); MEAN PLATELET VOLUME 8.7 fl (7.4-10.4); MONOCYTES % 6.1 % (2.0-8.0); NEUTROPHILS % 67.7 % (40.0-76.0); PLATELET 227 x1000/uL (130-400); RED BLOOD CELL COUNT 3.75 mill/uL (4.7-6.1); RED CELL DISTRIBUTION WIDTH 23.9 % (11.6-14.6)
[2021-12-12 14:31] LABS: CHLORIDE 108 mEq/L (98-107)
[2021-12-12 14:35] LABS: INR 1.1; PROTHROMBIN TIME 11.9 sec (9.6-11.0)
[2021-12-12 15:18] LABS: PLATELET ESTIMATE NORMAL
[2021-12-12] MEDS ORDERED: ACETAMINOPHEN 325MG TABLET PO ONE (16:00)
[2021-12-12] MEDS ORDERED: HYDROCODONE/ACETAMINOPHEN 5/325MG TABLET PO ONE (17:30)
[2021-12-12] MEDS ORDERED: LORAZEPAM 2MG/ML CPJ IV PRN (20:55)
[2021-12-12] MEDS: MORPHINE SULFATE 2 MG/ML CPJ (NOT FOR IM USE) IV PRN (21:12)
[2021-12-12 23:30] VITALS: BP 110/59
[2021-12-13] MEDS ORDERED: DEXTROSE 50% WATER 50ML SYRINGE IV PRN (00:15)
[2021-12-13] MEDS ORDERED: LORAZEPAM 0.5MG TABLET PO PRN (00:15)
[2021-12-13] MEDS ORDERED: ACETAMINOPHEN 325MG TABLET PO PRN (00:15)
[2021-12-13] MEDS ORDERED: NALOXONE HCL 0.4 MG/ML 1ML VIAL IV PRN (01:00)
[2021-12-13] MEDS: CEFTRIAXONE 1,000 MG in DEXTROSE 5% WATER 50 ML IV SCH (01:41)
[2021-12-13 04:00] VITALS: BP 111/75
[2021-12-13] MEDS: PANTOPRAZOLE 40MG DR TABLET PO SCH (06:55)
[2021-12-13] MEDS: BLOOD SUGAR DIAGNOSTIC STRIP TEST SCH ×4 (06:55→21:37)
[2021-12-13] MEDS ORDERED: INSULIN LISPRO 100 UNITS/ML SUBCUT SCH (07:20)
[2021-12-13] MEDS: INSULIN LISPRO 100 UNITS/ML SUBCUT SCH ×5 (07:50→21:39)
[2021-12-13 08:30] VITALS: BP 96/56
[2021-12-13] MEDS: ENOXAPARIN 40MG/0.4ML SYR SUBCUT SCH ×2 (08:56→09:00)
[2021-12-13] MEDS: DULOXETINE HCL 60MG DR CAPSULE PO SCH ×3 (08:56→21:37)
[2021-12-13] MEDS: INSULIN GLARGINE UD 100 UNITS/ML SYR SUBCUT SCH ×2 (10:59→21:39)
[2021-12-13] MEDS: MORPHINE SULFATE 2 MG/ML CPJ (NOT FOR IM USE) IV PRN ×3 (11:12→23:54)
[2021-12-13 11:53] LABS: CHLORIDE 111 mEq/L (98-107)
[2021-12-13 12:00] VITALS: BP 117/78
[2021-12-13 12:00] LABS: LDL CHOLESTEROL 49 mg/dL (5-100)
[2021-12-13 12:03] LABS: HDL CHOLESTEROL 30 mg/dL (40-59)
[2021-12-13 12:23] LABS: BASOPHILS % 0.8 % (0.0-2.0); EOSINOPHILS % 3.1 % (0.0-5.0); HEMATOCRIT. 34.4 % (42.0-52.0); HEMOGLOBIN. 10.7 g/dL (14.0-18.0); LYMPHOCYTES % 28.6 % (20.0-50.0); MEAN CORPUSCULAR HEMOGLOBIN 23.3 pg (28.0-32.0); MEAN CORPUSCULAR VOLUME 74.8 fL (80.0-94.0); MEAN PLATELET VOLUME 9.7 fl (7.4-10.4); MONOCYTES % 4.7 % (2.0-8.0); NEUTROPHILS % 62.8 % (40.0-76.0); PLATELET 273 x1000/uL (130-400); RED CELL DISTRIBUTION WIDTH 23.2 % (11.6-14.6)
[2021-12-13 16:02] VITALS: BP 102/59
[2021-12-13 20:00] VITALS: BP 114/100
[2021-12-13] MEDS: ENOXAPARIN 80MG/0.8ML SYR SUBCUT SCH (20:00)
[2021-12-13] MEDS: MICAFUNGIN 100 MG in SODIUM CHLORIDE 0.9% 100 ML IV SCH (21:37)
[2021-12-13] MEDS: TRAZODONE HCL 50MG TABLET PO SCH (23:55)
[2021-12-14] VITALS (7 sets, daily range): BP systolic 95–114; BP diastolic 52–71
[2021-12-14] MEDS: HYDROCODONE/ACETAMINOPHEN 5/325MG TABLET PO PRN (01:11)
[2021-12-14] MEDS: CEFTRIAXONE 1,000 MG in DEXTROSE 5% WATER 50 ML IV SCH (01:11)
[2021-12-14] MEDS: PANTOPRAZOLE 40MG DR TABLET PO SCH (06:27)
[2021-12-14] MEDS: BLOOD SUGAR DIAGNOSTIC STRIP TEST SCH ×4 (06:27→21:59)
[2021-12-14] MEDS: INSULIN LISPRO 100 UNITS/ML SUBCUT SCH ×4 (07:37→21:59)
[2021-12-14] MEDS: DULOXETINE HCL 60MG DR CAPSULE PO SCH ×2 (09:28→22:05)
[2021-12-14] MEDS: ENOXAPARIN 80MG/0.8ML SYR SUBCUT SCH ×2 (09:28→22:06)
[2021-12-14] MEDS: INSULIN GLARGINE UD 100 UNITS/ML SYR SUBCUT SCH ×2 (10:22→22:04)
[2021-12-14] MEDS: MORPHINE SULFATE 2 MG/ML CPJ (NOT FOR IM USE) IV PRN ×3 (12:25→22:14)
[2021-12-14 16:52] LABS: BASOPHILS % 1.1 % (0.0-2.0); EOSINOPHILS % 2.2 % (0.0-5.0); HEMATOCRIT. 28.5 % (42.0-52.0); LYMPHOCYTES % 33.8 % (20.0-50.0); MEAN CORPUSCULAR HEMOGLOBIN 23.6 pg (28.0-32.0); MEAN CORPUSCULAR VOLUME 74.6 fL (80.0-94.0); MEAN PLATELET VOLUME 9.4 fl (7.4-10.4); MONOCYTES % 4.8 % (2.0-8.0); NEUTROPHILS % 58.1 % (40.0-76.0); PLATELET 191 x1000/uL (130-400); RED BLOOD CELL COUNT 3.82 mill/uL (4.7-6.1); RED CELL DISTRIBUTION WIDTH 22.7 % (11.6-14.6)
[2021-12-14 17:30] LABS: CHLORIDE 111 mEq/L (98-107)
[2021-12-14] MEDS: MICAFUNGIN 100 MG in SODIUM CHLORIDE 0.9% 100 ML IV SCH (20:15)
[2021-12-14] MEDS: TRAZODONE HCL 50MG TABLET PO SCH (22:05)
[2021-12-15] VITALS: BP 116/65
[2021-12-15] MEDS: CEFTRIAXONE 1,000 MG in DEXTROSE 5% WATER 50 ML IV SCH (01:09)
[2021-12-15] MEDS: MORPHINE SULFATE 2 MG/ML CPJ (NOT FOR IM USE) IV PRN ×3 (05:11→18:32)
[2021-12-15] MEDS: BLOOD SUGAR DIAGNOSTIC STRIP TEST SCH ×4 (06:36→20:41)
[2021-12-15] MEDS: PANTOPRAZOLE 40MG DR TABLET PO SCH (06:40)
[2021-12-15] MEDS: INSULIN LISPRO 100 UNITS/ML SUBCUT SCH ×4 (07:50→20:41)
[2021-12-15 08:25] VITALS: BP 133/74
[2021-12-15] MEDS: INSULIN GLARGINE UD 100 UNITS/ML SYR SUBCUT SCH ×2 (09:42→22:00)
[2021-12-15] MEDS: ENOXAPARIN 80MG/0.8ML SYR SUBCUT SCH ×2 (09:43→20:42)
[2021-12-15] MEDS: DULOXETINE HCL 60MG DR CAPSULE PO SCH ×2 (09:43→20:40)
[2021-12-15 12:00] VITALS: BP 124/65
[2021-12-15 16:00] VITALS: BP 109/59
[2021-12-15 16:25] LABS: BASOPHILS % 0.9 % (0.0-2.0); EOSINOPHILS % 2.5 % (0.0-5.0); HEMATOCRIT. 31.1 % (42.0-52.0); HEMOGLOBIN. 9.7 g/dL (14.0-18.0); MEAN CORPUSCULAR HEMOGLOBIN 23.5 pg (28.0-32.0); MEAN CORPUSCULAR VOLUME 75.1 fL (80.0-94.0); MEAN PLATELET VOLUME 8.8 fl (7.4-10.4); MONOCYTES % 6.3 % (2.0-8.0); NEUTROPHILS % 54.3 % (40.0-76.0); PLATELET 242 x1000/uL (130-400); RED BLOOD CELL COUNT 4.14 mill/uL (4.7-6.1); RED CELL DISTRIBUTION WIDTH 23.2 % (11.6-14.6)
[2021-12-15 16:47] LABS: CHLORIDE 109 mEq/L (98-107)
[2021-12-15 20:00] VITALS: BP 110/75
[2021-12-15] MEDS: MICAFUNGIN 100 MG in SODIUM CHLORIDE 0.9% 100 ML IV SCH (20:40)
[2021-12-15] MEDS: TRAZODONE HCL 50MG TABLET PO SCH (20:41)
[2021-12-15 22:22] LABS: PLATELET ESTIMATE NORMAL
[2021-12-15] MEDS: HYDROCODONE/ACETAMINOPHEN 5/325MG TABLET PO PRN (22:50)
[2021-12-16] VITALS: BP 98/62
[2021-12-16] MEDS: CEFTRIAXONE 1,000 MG in DEXTROSE 5% WATER 50 ML IV SCH (01:26)
[2021-12-16 04:00] VITALS: BP 105/68
[2021-12-16] MEDS: MORPHINE SULFATE 2 MG/ML CPJ (NOT FOR IM USE) IV PRN (04:20)
[2021-12-16] MEDS: PANTOPRAZOLE 40MG DR TABLET PO SCH (06:34)
[2021-12-16] MEDS: BLOOD SUGAR DIAGNOSTIC STRIP TEST SCH ×4 (06:34→21:00)
[2021-12-16] MEDS: INSULIN LISPRO 100 UNITS/ML SUBCUT SCH ×4 (07:50→21:00)
[2021-12-16 08:00] VITALS: BP 129/82
[2021-12-16] MEDS: MORPHINE SULFATE 4 MG/ML CPJ (NOT FOR IM USE) IV PRN ×3 (09:24→22:29)
[2021-12-16] MEDS: DULOXETINE HCL 60MG DR CAPSULE PO SCH ×2 (09:24→22:35)
[2021-12-16] MEDS: ENOXAPARIN 80MG/0.8ML SYR SUBCUT SCH ×2 (09:26→22:37)
[2021-12-16] MEDS: INSULIN GLARGINE UD 100 UNITS/ML SYR SUBCUT SCH ×2 (09:35→22:00)
[2021-12-16 11:10] LABS: BASOPHILS % 0.7 % (0.0-2.0); EOSINOPHILS % 2.5 % (0.0-5.0); HEMATOCRIT. 29.8 % (42.0-52.0); HEMOGLOBIN. 9.3 g/dL (14.0-18.0); LYMPHOCYTES % 33.7 % (20.0-50.0); MEAN CORPUSCULAR HEMOGLOBIN 23.4 pg (28.0-32.0); MEAN CORPUSCULAR VOLUME 74.7 fL (80.0-94.0); MEAN PLATELET VOLUME 8.9 fl (7.4-10.4); MONOCYTES % 8.5 % (2.0-8.0); NEUTROPHILS % 54.6 % (40.0-76.0); PLATELET 228 x1000/uL (130-400); RED BLOOD CELL COUNT 3.98 mill/uL (4.7-6.1); RED CELL DISTRIBUTION WIDTH 22.1 % (11.6-14.6)
[2021-12-16 11:34] LABS: CHLORIDE 109 mEq/L (98-107)
[2021-12-16 12:00] VITALS: BP 108/70
[2021-12-16 14:50] LABS: CREATINE KINASE 19 IU/L (39-308)
[2021-12-16] MEDS: DAPTOMYCIN 500 MG in SODIUM CHLORIDE 0.9% 50 ML IV SCH (15:21)
[2021-12-16 16:00] VITALS: BP 106/64
[2021-12-16 20:00] VITALS: BP 113/61
[2021-12-16] MEDS: MICAFUNGIN 100 MG in SODIUM CHLORIDE 0.9% 100 ML IV SCH (22:34)
[2021-12-16] MEDS: TRAZODONE HCL 50MG TABLET PO SCH (22:36)
[2021-12-17] MEDS: CEFTRIAXONE 1,000 MG in DEXTROSE 5% WATER 50 ML IV SCH (02:22)
[2021-12-17 04:00] VITALS: BP 115/68
[2021-12-17] MEDS: PANTOPRAZOLE 40MG DR TABLET PO SCH (05:33)
[2021-12-17] MEDS: MORPHINE SULFATE 4 MG/ML CPJ (NOT FOR IM USE) IV PRN ×3 (05:59→19:07)
[2021-12-17 06:30] LABS: BASOPHILS % 0.8 % (0.0-2.0); EOSINOPHILS % 3.4 % (0.0-5.0); HEMATOCRIT. 27.6 % (42.0-52.0); HEMOGLOBIN. 8.7 g/dL (14.0-18.0); LYMPHOCYTES % 35.7 % (20.0-50.0); MEAN CORPUSCULAR HEMOGLOBIN 23.4 pg (28.0-32.0); MEAN CORPUSCULAR VOLUME 74.1 fL (80.0-94.0); MEAN PLATELET VOLUME 8.7 fl (7.4-10.4); NEUTROPHILS % 50.1 % (40.0-76.0); PLATELET 215 x1000/uL (130-400); RED BLOOD CELL COUNT 3.72 mill/uL (4.7-6.1); RED CELL DISTRIBUTION WIDTH 23.2 % (11.6-14.6)
[2021-12-17 06:33] LABS: CHLORIDE 108 mEq/L (98-107)
[2021-12-17] MEDS: BLOOD SUGAR DIAGNOSTIC STRIP TEST SCH ×4 (07:20→21:00)
[2021-12-17] MEDS: INSULIN LISPRO 100 UNITS/ML SUBCUT SCH ×4 (07:50→21:00)
[2021-12-17 08:00] VITALS: BP 125/74
[2021-12-17] MEDS: ENOXAPARIN 80MG/0.8ML SYR SUBCUT SCH ×2 (09:09→22:07)
[2021-12-17] MEDS: DULOXETINE HCL 60MG DR CAPSULE PO SCH ×2 (09:09→22:07)
[2021-12-17] MEDS: INSULIN GLARGINE UD 100 UNITS/ML SYR SUBCUT SCH ×2 (09:14→22:00)
[2021-12-17 12:05] VITALS: BP 114/71
[2021-12-17] MEDS: DAPTOMYCIN 500 MG in SODIUM CHLORIDE 0.9% 50 ML IV SCH (15:59)
[2021-12-17 16:00] VITALS: BP 111/74
[2021-12-17] MEDS ORDERED: MAGNESIUM/ALUMINUM HYDROXIDE/SIMETHICONE 30ML UDC PO PRN (21:00)
[2021-12-17] MEDS: MICAFUNGIN 100 MG in SODIUM CHLORIDE 0.9% 100 ML IV SCH (22:06)
[2021-12-17] MEDS: TRAZODONE HCL 50MG TABLET PO SCH (22:07)
[2021-12-18] VITALS: BP 104/68
[2021-12-18] MEDS: MORPHINE SULFATE 4 MG/ML CPJ (NOT FOR IM USE) IV PRN ×4 (00:55→17:26)
[2021-12-18 04:00] VITALS: BP 124/82
[2021-12-18] MEDS: PANTOPRAZOLE 40MG DR TABLET PO SCH (05:33)
[2021-12-18] MEDS: BLOOD SUGAR DIAGNOSTIC STRIP TEST SCH ×4 (05:34→21:31)
[2021-12-18] MEDS: INSULIN LISPRO 100 UNITS/ML SUBCUT SCH ×4 (07:50→21:00)
[2021-12-18 08:00] VITALS: BP 106/76
[2021-12-18] MEDS: DULOXETINE HCL 60MG DR CAPSULE PO SCH ×2 (09:14→21:28)
[2021-12-18] MEDS: INSULIN GLARGINE UD 100 UNITS/ML SYR SUBCUT SCH ×2 (09:15→22:46)
[2021-12-18] MEDS: ENOXAPARIN 80MG/0.8ML SYR SUBCUT SCH ×2 (09:19→21:29)
[2021-12-18 09:50] LABS: BASOPHILS % 0.4 % (0.0-2.0); EOSINOPHILS % 2.9 % (0.0-5.0); HEMATOCRIT. 29.7 % (42.0-52.0); HEMOGLOBIN. 9.3 g/dL (14.0-18.0); LYMPHOCYTES % 27.4 % (20.0-50.0); MEAN CORPUSCULAR HEMOGLOBIN 23.6 pg (28.0-32.0); MEAN CORPUSCULAR VOLUME 75.2 fL (80.0-94.0); MEAN PLATELET VOLUME 8.9 fl (7.4-10.4); MONOCYTES % 7.1 % (2.0-8.0); NEUTROPHILS % 62.2 % (40.0-76.0); PLATELET 223 x1000/uL (130-400); RED BLOOD CELL COUNT 3.95 mill/uL (4.7-6.1); RED CELL DISTRIBUTION WIDTH 23.4 % (11.6-14.6)
[2021-12-18 09:56] LABS: CHLORIDE 105 mEq/L (98-107)
[2021-12-18 11:36] VITALS: BP 139/85
[2021-12-18] MEDS: DAPTOMYCIN 500 MG in SODIUM CHLORIDE 0.9% 50 ML IV SCH (14:00)
[2021-12-18 16:00] VITALS: BP 107/71
[2021-12-18] MEDS ORDERED: LIDOCAINE HCL 2% JELLY 5ML TOP NR (16:00)
[2021-12-18 20:00] VITALS: BP 120/75
[2021-12-18] MEDS: TRAZODONE HCL 50MG TABLET PO SCH (21:28)
[2021-12-18] MEDS: MICAFUNGIN 100 MG in SODIUM CHLORIDE 0.9% 100 ML IV SCH (21:30)
[2021-12-18] MEDS: FAMOTIDINE 20MG TABLET PO SCH (21:34)
[2021-12-18] MEDS: MORPHINE SULFATE 2 MG/ML CPJ (NOT FOR IM USE) IV PRN (22:24)
[2021-12-18] MEDS: CEFTRIAXONE 1,000 MG in DEXTROSE 5% WATER 50 ML IV SCH (22:25)
[2021-12-19] VITALS: BP 114/75
[2021-12-19] MEDS: MORPHINE SULFATE 2 MG/ML CPJ (NOT FOR IM USE) IV PRN ×4 (03:11→20:39)
[2021-12-19 04:00] VITALS: BP 104/62
[2021-12-19] MEDS: HYDROCODONE/ACETAMINOPHEN 10/325MG TABLET PO PRN ×3 (05:54→16:36)
[2021-12-19 06:31] LABS: CHLORIDE 105 mEq/L (98-107)
[2021-12-19 06:38] LABS: BASOPHILS % 0.6 % (0.0-2.0); EOSINOPHILS % 3.5 % (0.0-5.0); HEMATOCRIT. 32.8 % (42.0-52.0); HEMOGLOBIN. 10.1 g/dL (14.0-18.0); LYMPHOCYTES % 33.1 % (20.0-50.0); MEAN CORPUSCULAR HEMOGLOBIN 22.9 pg (28.0-32.0); MEAN CORPUSCULAR VOLUME 74.1 fL (80.0-94.0); MEAN PLATELET VOLUME 8.8 fl (7.4-10.4); NEUTROPHILS % 52.8 % (40.0-76.0); PLATELET 257 x1000/uL (130-400); RED BLOOD CELL COUNT 4.42 mill/uL (4.7-6.1); RED CELL DISTRIBUTION WIDTH 23.6 % (11.6-14.6)
[2021-12-19] MEDS: BLOOD SUGAR DIAGNOSTIC STRIP TEST SCH ×4 (06:51→20:58)
[2021-12-19] MEDS: INSULIN LISPRO 100 UNITS/ML SUBCUT SCH ×4 (06:52→21:21)
[2021-12-19 08:00] VITALS: BP 133/79
[2021-12-19] MEDS: DULOXETINE HCL 60MG DR CAPSULE PO SCH ×2 (09:00→21:21)
[2021-12-19] MEDS: ENOXAPARIN 80MG/0.8ML SYR SUBCUT SCH ×2 (09:00→21:20)
[2021-12-19] MEDS: FAMOTIDINE 20MG TABLET PO SCH ×2 (09:00→21:21)
[2021-12-19] MEDS: INSULIN GLARGINE UD 100 UNITS/ML SYR SUBCUT SCH ×2 (10:00→21:22)
[2021-12-19 12:00] VITALS: BP 114/70
[2021-12-19] MEDS: DAPTOMYCIN 500 MG in SODIUM CHLORIDE 0.9% 50 ML IV SCH (14:00)
[2021-12-19] MEDS ORDERED: TRAZ-251 PO (15:28)
[2021-12-19] MEDS ORDERED: HYDR-4009 PO (15:28)
[2021-12-19 16:00] VITALS: BP 115/74
[2021-12-19 20:00] VITALS: BP 123/77
[2021-12-19] MEDS: MICAFUNGIN 100 MG in SODIUM CHLORIDE 0.9% 100 ML IV SCH (20:29)
[2021-12-19] MEDS: CEFTRIAXONE 1,000 MG in DEXTROSE 5% WATER 50 ML IV SCH (21:20)
[2021-12-19] MEDS: TRAZODONE HCL 50MG TABLET PO SCH (21:21)
[2021-12-20] VITALS: BP 125/73
[2021-12-20] MEDS: MORPHINE SULFATE 2 MG/ML CPJ (NOT FOR IM USE) IV PRN ×6 (00:44→22:43)
[2021-12-20 04:00] VITALS: BP 136/72
[2021-12-20] MEDS: INSULIN LISPRO 100 UNITS/ML SUBCUT SCH ×4 (07:40→21:00)
[2021-12-20] MEDS: BLOOD SUGAR DIAGNOSTIC STRIP TEST SCH ×4 (07:40→21:00)
[2021-12-20 08:00] VITALS: BP 103/61
[2021-12-20] MEDS ORDERED: LIDOCAINE HCL 1% 10 MG/ML 10ML VIAL ONE (08:41)
[2021-12-20] MEDS: DULOXETINE HCL 60MG DR CAPSULE PO SCH ×2 (10:07→20:44)
[2021-12-20] MEDS: ENOXAPARIN 80MG/0.8ML SYR SUBCUT SCH (10:07)
[2021-12-20] MEDS: FAMOTIDINE 20MG TABLET PO SCH ×2 (10:07→20:45)
[2021-12-20] MEDS: INSULIN GLARGINE UD 100 UNITS/ML SYR SUBCUT SCH ×2 (10:07→21:00)
[2021-12-20 12:00] VITALS: BP 123/73
[2021-12-20] MEDS: DAPTOMYCIN 500 MG in SODIUM CHLORIDE 0.9% 50 ML IV SCH (13:24)
[2021-12-20 16:00] VITALS: BP 157/82
[2021-12-20 20:00] VITALS: BP 154/87
[2021-12-20] MEDS: MICAFUNGIN 100 MG in SODIUM CHLORIDE 0.9% 100 ML IV SCH (20:44)
[2021-12-20] MEDS: TRAZODONE HCL 50MG TABLET PO SCH (20:45)
[2021-12-20] MEDS: ENOXAPARIN 100MG/ML SYR SUBCUT SCH (20:45)
[2021-12-20] MEDS: CEFTRIAXONE 1,000 MG in DEXTROSE 5% WATER 50 ML IV SCH (22:43)
[2021-12-20] MEDS: HYDROCODONE/ACETAMINOPHEN 10/325MG TABLET PO PRN (23:33)
[2021-12-21] VITALS (7 sets, daily range): BP systolic 122–233; BP diastolic 78–85
[2021-12-21] MEDS: MORPHINE SULFATE 2 MG/ML CPJ (NOT FOR IM USE) IV PRN ×4 (02:43→16:53)
[2021-12-21] MEDS: BLOOD SUGAR DIAGNOSTIC STRIP TEST SCH ×3 (06:58→16:54)
[2021-12-21] MEDS ORDERED: HYDROCODONE/ACETAMINOPHEN 10/325MG TABLET PO PRN (07:30)
[2021-12-21] MEDS: INSULIN LISPRO 100 UNITS/ML SUBCUT SCH ×3 (08:51→16:54)
[2021-12-21] MEDS: DULOXETINE HCL 60MG DR CAPSULE PO SCH (08:51)
[2021-12-21] MEDS: FAMOTIDINE 20MG TABLET PO SCH (08:51)
[2021-12-21] MEDS: ENOXAPARIN 100MG/ML SYR SUBCUT SCH (08:52)
[2021-12-21] MEDS: INSULIN GLARGINE UD 100 UNITS/ML SYR SUBCUT SCH (09:51)
[2021-12-21] MEDS: DAPTOMYCIN 500 MG in SODIUM CHLORIDE 0.9% 50 ML IV SCH (15:52)
== END 2021-12-21 18:00 | disposition home health service (06) | DRG 720 ==
LOC: ER 12:26 → EDBEDREQTM 15:07 → EDBEDREQ 15:07 → 6WST 19:26 → EDBEDREQSVC 19:32 → EDBEDREQTM 19:32 → EDBEDREQ 19:32 → ENRESERV 22:02
PROVIDERS: ADMIT Internal Medicine; ATTEND Internal Medicine
PROC: 0JBR0ZZ Excision of Left Foot Subcutaneous Tissue and Fascia, Open Approach (ICD-10-PCS; principal; 2021-12-13)
PROC: 0JBR0ZZ Excision of Left Foot Subcutaneous Tissue and Fascia, Open Approach (ICD-10-PCS; 2021-12-17)
PROC: 0JB90ZZ Excision of Buttock Subcutaneous Tissue and Fascia, Open Approach (ICD-10-PCS; 2021-12-20)
PROC: B5181ZA Fluoroscopy of Superior Vena Cava using Low Osmolar Contrast, Guidance (ICD-10-PCS; 2021-12-20)
PROC: 02HV33Z Insertion of Infusion Device into Superior Vena Cava, Percutaneous Approach (ICD-10-PCS; 2021-12-20)
PROC: B548ZZA Ultrasonography of Superior Vena Cava, Guidance (ICD-10-PCS; 2021-12-20)
DX: A41.51 Sepsis due to Escherichia coli [E. coli] (principal); L89.153 Pressure ulcer of sacral region, stage 3; E46 Unspecified protein-calorie malnutrition; C61 Malignant neoplasm of prostate; F33.1 Major depressive disorder, recurrent, moderate; I82.502 Chronic embolism and thrombosis of unspecified deep veins of left lower extremity; L89.313 Pressure ulcer of right buttock, stage 3; D64.9 Anemia, unspecified; E86.1 Hypovolemia; E11.65 Type 2 diabetes mellitus with hyperglycemia; I10 Essential (primary) hypertension; B37.7 Candidal sepsis; B95.2 Enterococcus as the cause of diseases classified elsewhere; I25.10 Atherosclerotic heart disease of native coronary artery without angina pectoris; Z60.2 Problems related to living alone; N39.0 Urinary tract infection, site not specified; G40.909 Epilepsy, unspecified, not intractable, without status epilepticus; G47.00 Insomnia, unspecified; F43.10 Post-traumatic stress disorder, unspecified; K57.30 Diverticulosis of large intestine without perforation or abscess without bleeding; K80.20 Calculus of gallbladder without cholecystitis without obstruction; N20.0 Calculus of kidney; M51.16 Intervertebral disc disorders with radiculopathy, lumbar region; Z20.822 Contact with and (suspected) exposure to COVID-19; Z16.21 Resistance to vancomycin; Z68.28 Body mass index [BMI] 28.0-28.9, adult; I25.2 Old myocardial infarction; Z82.49 Family history of ischemic heart disease and other diseases of the circulatory system; Z85.46 Personal history of malignant neoplasm of prostate; Z87.442 Personal history of urinary calculi; Z87.891 Personal history of nicotine dependence; Z95.5 Presence of coronary angioplasty implant and graft; Z95.828 Presence of other vascular implants and grafts; L89.620 Pressure ulcer of left heel, unstageable; Z87.19 Personal history of other diseases of the digestive system
CPT/HCPCS: 36415; 36573; 71045; 74176; 76770; 80048; 80053; 80061; 81003; 82040; 82550; 82962; 83036; 83605; 83880; 84134; 84145; 84484; 85025; 87070; 87077; 87106; 87186; 87426; 93005; 93970; 97162; 99291; C1725; C1769; C1893; J0696; J0878; J1650; J1815; J2060; J2248; J2270; J2405; J2543; J3370; J3490; J7030; J7040; J7050; J7060

== ENCOUNTER 2022-04-28 16:21 | Emergency (ER) | payer OTHER ==
[~2022-04-28] VITALS: Ht 177.8 cm; Wt 91.0 kg
[~2022-04-28 16:21] MED LIST changes: -AMOX-424 MT; +TRAZ-251 PO
[2022-04-28] MEDS ORDERED: SODIUM CHLORIDE 0.9% 1,000 ML IV ONE (16:45)
[2022-04-28 19:00] VITALS: BP 114/90
[2022-04-28 19:19] LABS: BASOPHILS % 0.5 % (0.0-2.0); HEMATOCRIT. 27.9 % (42.0-52.0); HEMOGLOBIN. 8.5 g/dL (14.0-18.0); MEAN CORPUSCULAR HEMOGLOBIN 24.4 pg (28.0-32.0); MEAN CORPUSCULAR VOLUME 80.1 fL (80.0-94.0); MEAN PLATELET VOLUME 8.1 fl (7.4-10.4); MONOCYTES % 5.4 % (2.0-8.0); NEUTROPHILS % 73.1 % (40.0-76.0); PLATELET 310 x1000/uL (130-400); RED BLOOD CELL COUNT 3.48 mill/uL (4.7-6.1); RED CELL DISTRIBUTION WIDTH 20.6 % (11.6-14.6)
[2022-04-28 19:28] LABS: CHLORIDE 102 mEq/L (98-107)
[2022-04-28 19:41] LABS: ETHANOL BLOOD < 10 mg/dL
== END 2022-04-28 20:09 | disposition left against medical advice (07) ==
LOC: ER 16:21
DX: R10.84 Generalized abdominal pain (principal); E11.65 Type 2 diabetes mellitus with hyperglycemia; F41.9 Anxiety disorder, unspecified; I11.0 Hypertensive heart disease with heart failure; I50.9 Heart failure, unspecified; F32.9 Major depressive disorder, single episode, unspecified; I25.2 Old myocardial infarction; Z79.899 Other long term (current) drug therapy
CPT/HCPCS: 36415; 80053; 80320; 82962; 83605; 83690; 84484; 85025; 96360; 99283; J7030; G0480

== ENCOUNTER → 2022-06-20 | Emergency (ER) | payer OTHER ==
[~2022-06-20] VITALS: Ht 177.8 cm; Wt 70.3 kg
[~2022-06-20] MED LIST changes: +HYDROCODONE/ACETAMINOPHEN 10/325MG TABLET PO PRN; +MORPHINE SULFATE 4 MG/ML CPJ (NOT FOR IM USE) IV ONE; +MORPHINE SULFATE 4 MG/ML CPJ (NOT FOR IM USE) IV STA; +NALOXONE HCL 0.4MG/ML VIAL IV PRN; +OLANZAPINE 10 MG/VIAL IM ONE; +ONDANSETRON HCL 4MG/2ML INJ IV STA; +PIPERACILLIN/TAZ 3.375G PREMIX 50 ML IV ONE; +SODIUM CHLORIDE 0.9% 1000ML BAG (SEPSIS BOLUS) IV ONE; +VANCOMYCIN 1G PREMIX 200 ML IV ONE
[2022-06-20 14:36] LABS: BASOPHILS % 0.7 % (0.0-2.0); EOSINOPHILS % 3.8 % (0.0-5.0); HEMATOCRIT. 31.2 % (42.0-52.0); HEMOGLOBIN. 9.6 g/dL (14.0-18.0); LYMPHOCYTES % 46.2 % (20.0-50.0); MEAN CORPUSCULAR HEMOGLOBIN 25.1 pg (28.0-32.0); MEAN PLATELET VOLUME 9.2 fl (7.4-10.4); MONOCYTES % 12.9 % (2.0-8.0); NEUTROPHILS % 36.4 % (40.0-76.0); PLATELET 156 x1000/uL (130-400); RED BLOOD CELL COUNT 3.81 mill/uL (4.7-6.1); RED CELL DISTRIBUTION WIDTH 23.1 % (11.6-14.6)
[2022-06-20 14:37] LABS: CHLORIDE 98 mEq/L (98-107)
[2022-06-20 14:59] LABS: PLATELET ESTIMATE NORMAL
[2022-06-20 16:38] LABS: CLARITY URINE CLEAR (CLEAR); COLOR URINE YELLOW (YELLOW); KETONES URINE NEGATIVE (NEGATIVE); LEUKOCYTE ESTERASE URINE NEGATIVE (NEGATIVE); NITRITE URINE NEGATIVE (NEGATIVE); OCCULT BLOOD URINE NEGATIVE (NEGATIVE); PH URINE 7.5 (4.5-8.0); PROTEIN URINE 1+ (NEGATIVE); SPECIFIC GRAVITY URINE 1.009 (1.005-1.030)
[2022-06-20 17:02] LABS: INR 1.3; PROTHROMBIN TIME 13.4 sec (9.6-11.0)
[2022-06-21 22:39] VITALS: BP 122/80
== END | disposition short-term general hospital (02) ==
LOC: ER 12:47 → CANBEDREQ 06-21 18:45
DX: A41.9 Sepsis, unspecified organism (principal); R65.20 Severe sepsis without septic shock; G89.29 Other chronic pain; M79.662 Pain in left lower leg; M79.661 Pain in right lower leg; M54.50 Low back pain, unspecified; C61 Malignant neoplasm of prostate; C79.51 Secondary malignant neoplasm of bone; I25.10 Atherosclerotic heart disease of native coronary artery without angina pectoris; E11.9 Type 2 diabetes mellitus without complications; I25.2 Old myocardial infarction; I11.0 Hypertensive heart disease with heart failure; I50.9 Heart failure, unspecified; F32.A Depression, unspecified; F41.9 Anxiety disorder, unspecified; Z20.822 Contact with and (suspected) exposure to COVID-19; Z74.01 Bed confinement status; Z79.4 Long term (current) use of insulin
CPT/HCPCS: 36415; 71045; 72131; 80053; 81003; 82962; 83605; 83880; 84145; 84484; 85025; 85610; 86850; 86900; 86901; 87040; 87077; 87086; 87186; 87426; 93005; 93970; 96361; 96365; 96368; 96375; 96376; 99291; C9803; J2270; J2405; J2543; J3370; J7030; Z7610; 96372; A4315

== ENCOUNTER 2022-10-21 13:05 | Inpatient (IN) | payer OTHER ==
[~2022-10-21] VITALS: Ht 152.4 cm; Wt 64.0 kg
[~2022-10-21 13:05] MED LIST changes: -HYDROCODONE/ACETAMINOPHEN 10/325MG TABLET PO PRN; -MORPHINE SULFATE 4 MG/ML CPJ (NOT FOR IM USE) IV ONE; -MORPHINE SULFATE 4 MG/ML CPJ (NOT FOR IM USE) IV STA; -NALOXONE HCL 0.4MG/ML VIAL IV PRN; -OLANZAPINE 10 MG/VIAL IM ONE; -ONDANSETRON HCL 4MG/2ML INJ IV STA; -PIPERACILLIN/TAZ 3.375G PREMIX 50 ML IV ONE; -SODIUM CHLORIDE 0.9% 1000ML BAG (SEPSIS BOLUS) IV ONE; -VANCOMYCIN 1G PREMIX 200 ML IV ONE
[2022-10-21] MEDS ORDERED: MORPHINE SULFATE 4 MG/ML CPJ (NOT FOR IM USE) IV STA (13:45)
[2022-10-21] MEDS ORDERED: ONDANSETRON HCL 4MG/2ML INJ IV STA (13:45)
[2022-10-21] MEDS ORDERED: SODIUM CHLORIDE 0.9% 1,000 ML IV ONE (13:45)
[2022-10-21 15:49] LABS: BASOPHILS % 0.6 % (0.0-2.0); EOSINOPHILS % 3.5 % (0.0-5.0); HEMATOCRIT. 32.7 % (42.0-52.0); HEMOGLOBIN. 10.2 g/dL (14.0-18.0); MONOCYTES % 8.2 % (2.0-8.0); NEUTROPHILS % 53.7 % (40.0-76.0); RED BLOOD CELL COUNT 4.25 mill/uL (4.7-6.1); RED CELL DISTRIBUTION WIDTH 21.6 % (11.6-14.6)
[2022-10-21 15:50] LABS: CLARITY URINE CLEAR (CLEAR); COLOR URINE YELLOW (YELLOW); KETONES URINE NEGATIVE (NEGATIVE); LEUKOCYTE ESTERASE URINE 2+ (NEGATIVE); NITRITE URINE NEGATIVE (NEGATIVE); OCCULT BLOOD URINE NEGATIVE (NEGATIVE); PH URINE 5.5 (4.5-8.0); PROTEIN URINE NEGATIVE (NEGATIVE); SPECIFIC GRAVITY URINE 1.019 (1.005-1.030)
[2022-10-21 15:58] LABS: CHLORIDE 105 mEq/L (98-107)
[2022-10-21] MEDS ORDERED: CEFTRIAXONE 1 G PREMIX 50 ML IV NR (16:15)
[2022-10-21 17:04] LABS: MEAN PLATELET VOLUME 8.2 fl (7.4-10.4); PLATELET 260 x1000/uL (130-400)
[2022-10-22] MEDS ORDERED: CEFTRIAXONE 1 G PREMIX 50 ML IV NR (00:45)
[2022-10-22 03:02] VITALS: BP 121/59
[2022-10-22 04:00] VITALS: BP 135/74
[2022-10-22] MEDS: NITROGLYCERIN OINT 1GM/INCH UDPKT TD SCH ×3 (06:41→21:15)
[2022-10-22 08:00] VITALS: BP_SYST 114; BP_SYST 124; BP_DIAS 62; BP_DIAS 77
[2022-10-22] MEDS: METOPROLOL TARTRATE 50MG TABLET PO SCH ×2 (09:22→17:00)
[2022-10-22] MEDS: ENOXAPARIN 40MG/0.4ML SYR SUBCUT SCH (09:22)
[2022-10-22] MEDS: ASPIRIN 81MG TABLET PO SCH (09:22)
[2022-10-22 10:29] LABS: CHLORIDE 108 mEq/L (98-107)
[2022-10-22 12:00] VITALS: BP 100/55
[2022-10-22] MEDS ORDERED: DEXTROSE 50% WATER 50ML SYRINGE IV PRN (12:00)
[2022-10-22] MEDS ORDERED: MORPHINE SULFATE 15MG TABLET SR PO NR (12:00)
[2022-10-22] MEDS: INSULIN LISPRO 100 UNITS/ML SUBCUT SCH ×3 (12:10→20:46)
[2022-10-22] MEDS: HALOPERIDOL LACTATE 5MG/ML VIAL IM PRN (12:51)
[2022-10-22] MEDS: LEVOFLOXACIN 500MG TABLET PO SCH (12:51)
[2022-10-22] MEDS: LORAZEPAM 2MG/ML CPJ IV PRN ×2 (13:35→17:28)
[2022-10-22] MEDS ORDERED: NALOXONE HCL 0.4MG/ML VIAL IV PRN (15:15)
[2022-10-22 16:00] VITALS: BP 100/60
[2022-10-22] MEDS: HYDROCODONE/ACETAMINOPHEN 10/325MG TABLET PO PRN (17:28)
[2022-10-22] MEDS: BLOOD SUGAR DIAGNOSTIC STRIP TEST SCH ×2 (17:38→20:46)
[2022-10-22 20:00] VITALS: BP 125/65
[2022-10-23] VITALS: BP 107/60
[2022-10-23] MEDS: HALOPERIDOL LACTATE 5MG/ML VIAL IM PRN ×2 (01:52→10:03)
[2022-10-23 04:00] VITALS: BP 140/74
[2022-10-23] MEDS: HYDROCODONE/ACETAMINOPHEN 10/325MG TABLET PO PRN ×3 (05:39→21:33)
[2022-10-23] MEDS: NITROGLYCERIN OINT 1GM/INCH UDPKT TD SCH ×3 (05:39→22:00)
[2022-10-23] MEDS: BLOOD SUGAR DIAGNOSTIC STRIP TEST SCH ×4 (06:08→21:00)
[2022-10-23] MEDS: INSULIN LISPRO 100 UNITS/ML SUBCUT SCH ×4 (06:08→21:00)
[2022-10-23 08:00] VITALS: BP 150/82
[2022-10-23] MEDS: SODIUM HYPOCHLORITE 0.125% 473ML SOLUTION TOP SCH (09:00)
[2022-10-23] MEDS: LEVOFLOXACIN 500MG TABLET PO SCH (10:03)
[2022-10-23] MEDS: METOPROLOL TARTRATE 50MG TABLET PO SCH ×2 (10:03→17:00)
[2022-10-23] MEDS: ENOXAPARIN 40MG/0.4ML SYR SUBCUT SCH (10:03)
[2022-10-23] MEDS: ASPIRIN 81MG TABLET PO SCH (10:03)
[2022-10-23] MEDS: LORAZEPAM 2MG/ML CPJ IV PRN (10:04)
[2022-10-23 12:00] VITALS: BP 122/74
[2022-10-23 16:00] VITALS: BP 103/63
[2022-10-23] MEDS: DOCUSATE SODIUM 250MG CAPSULE PO SCH (18:54)
[2022-10-23 20:00] VITALS: BP 99/61
[2022-10-23] MEDS: LORAZEPAM 1MG TABLET PO PRN (22:57)
[2022-10-24 00:03] VITALS: BP 98/60
[2022-10-24 04:00] VITALS: BP 101/63
[2022-10-24] MEDS: NITROGLYCERIN OINT 1GM/INCH UDPKT TD SCH ×3 (06:00→21:01)
[2022-10-24] MEDS: BLOOD SUGAR DIAGNOSTIC STRIP TEST SCH ×4 (06:40→20:15)
[2022-10-24] MEDS: INSULIN LISPRO 100 UNITS/ML SUBCUT SCH ×4 (07:10→20:15)
[2022-10-24 08:00] VITALS: BP 110/72
[2022-10-24] MEDS: METOPROLOL TARTRATE 50MG TABLET PO SCH ×2 (09:00→18:09)
[2022-10-24] MEDS: SODIUM HYPOCHLORITE 0.125% 473ML SOLUTION TOP SCH (09:00)
[2022-10-24] MEDS: HALOPERIDOL LACTATE 5MG/ML VIAL IM PRN ×2 (10:14→22:12)
[2022-10-24] MEDS: ASPIRIN 81MG TABLET PO SCH (10:15)
[2022-10-24] MEDS: HYDROCODONE/ACETAMINOPHEN 10/325MG TABLET PO PRN ×3 (10:15→18:09)
[2022-10-24] MEDS: ENOXAPARIN 40MG/0.4ML SYR SUBCUT SCH (10:16)
[2022-10-24] MEDS: DOCUSATE SODIUM 250MG CAPSULE PO SCH (10:16)
[2022-10-24] MEDS: LEVOFLOXACIN 500MG TABLET PO SCH (11:50)
[2022-10-24] MEDS: LORAZEPAM 1MG TABLET PO PRN ×2 (11:50→21:03)
[2022-10-24 12:00] VITALS: BP 121/76
[2022-10-24 16:00] VITALS: BP 115/80
[2022-10-24 20:00] VITALS: BP 116/68
[2022-10-25] VITALS: BP 100/57
[2022-10-25 04:00] VITALS: BP 110/61
[2022-10-25] MEDS: NITROGLYCERIN OINT 1GM/INCH UDPKT TD SCH ×2 (05:27→14:02)
[2022-10-25] MEDS: BLOOD SUGAR DIAGNOSTIC STRIP TEST SCH ×2 (05:40→11:51)
[2022-10-25] MEDS: INSULIN LISPRO 100 UNITS/ML SUBCUT SCH ×2 (06:14→11:51)
[2022-10-25 08:00] VITALS: BP 108/62
[2022-10-25] MEDS ORDERED: SODIUM HYPOCHLORITE (0.25%) 480ML SOLUTION (HALF STRENGTH) TOP SCH (09:00)
[2022-10-25] MEDS: SODIUM HYPOCHLORITE 0.125% 473ML SOLUTION TOP SCH (09:00)
[2022-10-25] MEDS: DOCUSATE SODIUM 250MG CAPSULE PO SCH (09:00)
[2022-10-25] MEDS: ASPIRIN 81MG TABLET PO SCH (09:05)
[2022-10-25] MEDS: ENOXAPARIN 40MG/0.4ML SYR SUBCUT SCH (09:05)
[2022-10-25] MEDS: METOPROLOL TARTRATE 50MG TABLET PO SCH (09:06)
[2022-10-25] MEDS: LEVOFLOXACIN 500MG TABLET PO SCH (10:48)
[2022-10-25] MEDS: HYDROCODONE/ACETAMINOPHEN 10/325MG TABLET PO PRN (10:48)
[2022-10-25 12:00] VITALS: BP 109/59
[2022-10-25 12:56] VITALS: BP 109/59
== END 2022-10-25 16:39 | disposition hospice, home (50) | DRG 364 ==
LOC: ER 13:05 → MICUSO 17:14 → 7EST 10-22 04:34
PROVIDERS: ADMIT Internal Medicine; ATTEND Internal Medicine
PROC: 0LBW0ZZ Excision of Left Foot Tendon, Open Approach (ICD-10-PCS; principal; 2022-10-24)
PROC: 0JBQ0ZZ Excision of Right Foot Subcutaneous Tissue and Fascia, Open Approach (ICD-10-PCS; 2022-10-24)
PROC: 0JBQ0ZZ Excision of Right Foot Subcutaneous Tissue and Fascia, Open Approach (ICD-10-PCS; 2022-10-24)
PROC: 0LBN0ZZ Excision of Right Lower Leg Tendon, Open Approach (ICD-10-PCS; 2022-10-24)
DX: L89.624 Pressure ulcer of left heel, stage 4 (principal); E43 Unspecified severe protein-calorie malnutrition; L89.150 Pressure ulcer of sacral region, unstageable; L89.213 Pressure ulcer of right hip, stage 3; I11.0 Hypertensive heart disease with heart failure; C61 Malignant neoplasm of prostate; L89.613 Pressure ulcer of right heel, stage 3; I50.9 Heart failure, unspecified; D64.9 Anemia, unspecified; E11.9 Type 2 diabetes mellitus without complications; Z20.822 Contact with and (suspected) exposure to COVID-19; N39.0 Urinary tract infection, site not specified; F41.9 Anxiety disorder, unspecified; Z85.46 Personal history of malignant neoplasm of prostate; Z79.899 Other long term (current) drug therapy; Z68.27 Body mass index [BMI] 27.0-27.9, adult; Z51.5 Encounter for palliative care
CPT/HCPCS: 36415; 71045; 80048; 80053; 81003; 82962; 84484; 85025; 87426; 93005; 99285; J0696; J1630; J1650; J1815; J2060; J2270; J2405; J7030

== ENCOUNTER 2022-10-27 03:18 | Inpatient (IN) | payer OTHER ==
[~2022-10-27] VITALS: Ht 172.7 cm; Wt 66.8 kg
[2022-10-27] VITALS (45 sets, daily range): BP systolic 83–131; BP diastolic 32–90
[2022-10-27] MEDS ORDERED: PROPOFOL 10MG/ML 100ML 100 ML IV SCH (04:15)
[2022-10-27 04:22] LABS: BASOPHILS % 0.4 % (0.0-2.0); EOSINOPHILS % 0.6 % (0.0-5.0); HEMATOCRIT. 29.2 % (42.0-52.0); LYMPHOCYTES % 22.8 % (20.0-50.0); MEAN CORPUSCULAR HEMOGLOBIN 23.7 pg (28.0-32.0); MEAN PLATELET VOLUME 8.1 fl (7.4-10.4); MONOCYTES % 4.3 % (2.0-8.0); NEUTROPHILS % 71.9 % (40.0-76.0); PLATELET 409 x1000/uL (130-400); RED BLOOD CELL COUNT 3.79 mill/uL (4.7-6.1); RED CELL DISTRIBUTION WIDTH 21.4 % (11.6-14.6)
[2022-10-27 04:29] LABS: INR 1.2; PARTIAL THROMBOPLASTIN TIME 29.9 sec (23.4-31.0)
[2022-10-27] MEDS ORDERED: NOREPINEPHRINE 8 MG in DEXT 5% WATER 242 ML IV STA (04:35)
[2022-10-27] MEDS ORDERED: FENTANYL 2500MCG/250ML PMX 250 ML IV ONE ×2 (04:45→17:00)
[2022-10-27] MEDS ORDERED: MIDAZOLAM HCL 100 MG in DEXT 5% WATER 80 ML IV ONE (04:45)
[2022-10-27 04:54] LABS: CHLORIDE 104 mEq/L (98-107)
[2022-10-27] MEDS ORDERED: SUCCINYLCHOLINE CHLORIDE 200MG/10ML IV ONE (05:00)
[2022-10-27] MEDS ORDERED: MIDAZOLAM HCL 100 MG in DEXT 5% WATER 80 ML IV NR (05:00)
[2022-10-27] MEDS ORDERED: NOREPINEPHRINE 8 MG in DEXT 5% WATER 242 ML IV NR (05:00)
[2022-10-27] MEDS ORDERED: ETOMIDATE 2MG/ML 10ML VIAL IV ONE (05:00)
[2022-10-27 05:01] LABS: BG BASE EXCESS -6.2 mmol/L (-2.0-2.0); BG CARBOXYHEMOGLOBIN 0.3 % (0.5-1.5); BG DEOXYHEMOGLOBIN 0.3 % (0.0-5.0); BG FRACTION INSPIRED OXYGEN 100; BG METHEMOGLOBIN 0.3 % (0.0-1.5); BG OXYGEN SATURATION 99.7 % (92.0-98.5); BG OXYHEMOGLOBIN 99.1 % (94.0-97.0); BG PCO2 36.2 mmHg (35.0-45.0); BG PH 7.338 (7.350-7.450); BG SAMPLE SITE RIGHT RADIAL; BG TOTAL HEMOGLOBIN 8.7 g/dL (12.0-18.0); BG VENT MODE VENT - AC
[2022-10-27 05:04] LABS: ETHANOL BLOOD < 10 mg/dL
[2022-10-27] MEDS ORDERED: VANCOMYCIN 1GM PMX (XELLIA) 200 ML IV STA (05:30)
[2022-10-27] MEDS ORDERED: PIPERACILLIN/TAZOBACTAM 3.375GM/50ML PREMIX IV NR (05:30)
[2022-10-27] MEDS ORDERED: ASPIRIN 325MG TABLET NG ONE (05:30)
[2022-10-27] MEDS ORDERED: VANCOMYCIN 1G PREMIX 200 ML IV NR (06:00)
[2022-10-27] MEDS ORDERED: ASPIRIN 325MG TABLET NG NR (06:30)
[2022-10-27] MEDS ORDERED: DEXTROSE 50% WATER 50ML SYRINGE IV PRN (12:00)
[2022-10-27] MEDS ORDERED: DOCUSATE SODIUM 100MG CAPSULE PO PRN (12:15)
[2022-10-27] MEDS ORDERED: ACETAMINOPHEN 325MG TABLET PO PRN (12:15)
[2022-10-27] MEDS ORDERED: IPRATROPIUM/ALBUTEROL 0.5-3(2.5)MG/3ML NEB HHN PRN (12:15)
[2022-10-27] MEDS ORDERED: CLONIDINE 0.1MG TABLET PO PRN (12:15)
[2022-10-27] MEDS: ENOXAPARIN 40MG/0.4ML SYR SUBCUT SCH (12:18)
[2022-10-27] MEDS: PANTOPRAZOLE SODIUM 40 MG/VIAL IV SCH (12:18)
[2022-10-27] MEDS: SODIUM CHLORIDE 0.9% 1,000 ML IV SCH (12:32)
[2022-10-27] MEDS: BLOOD SUGAR DIAGNOSTIC STRIP TEST SCH ×3 (13:00→21:24)
[2022-10-27 13:19] LABS: TOTAL IRON BINDING CAPACITY 160 ug/dL (250-450)
[2022-10-27] MEDS: INSULIN LISPRO 100 UNITS/ML SUBCUT SCH ×3 (13:20→21:00)
[2022-10-27 13:38] LABS: FERRITIN 87 ng/mL (22-322)
[2022-10-27 13:49] LABS: VITAMIN B12 SERUM 964 pg/mL (211-911)
[2022-10-27] MEDS: LACTULOSE 20G/30ML UDC PO SCH ×2 (14:23→21:24)
[2022-10-27] MEDS: IPRATROPIUM/ALBUTEROL 0.5-3(2.5)MG/3ML NEB HHN SCH (14:37)
[2022-10-27] MEDS: CEFEPIME 2,000 MG in DEXT 5% WATER 100 ML IV SCH (15:27)
[2022-10-27] MEDS ORDERED: NOREPINEPHRINE 8MG/250ML PMX 250 ML IV PRN (17:45)
[2022-10-27] MEDS ORDERED: MIDAZOLAM HCL 100 MG in SODIUM CHLORIDE 0.9% 80 ML IV PRN (18:00)
[2022-10-27] MEDS ORDERED: FENTANYL CITRATE 2,500 MCG in SODIUM CHLORIDE 0.9% 200 ML IV PRN (18:00)
[2022-10-27] MEDS: NOREPINEPHRINE 8 MG in DEXTROSE 5% WATER 250 ML IV PRN (19:18)
[2022-10-27] MEDS: LAMOTRIGINE 25MG TABLET PO SCH (21:24)
[2022-10-28] VITALS (104 sets, daily range): BP systolic 76–146; BP diastolic 50–80
[2022-10-28] MEDS: IPRATROPIUM/ALBUTEROL 0.5-3(2.5)MG/3ML NEB HHN SCH ×4 (00:13→23:57)
[2022-10-28] MEDS: SODIUM CHLORIDE 0.9% 1,000 ML IV SCH ×2 (00:23→09:09)
[2022-10-28] MEDS: CEFEPIME 2,000 MG in DEXT 5% WATER 100 ML IV SCH ×2 (00:23→13:51)
[2022-10-28 05:35] LABS: BASOPHILS % 0.4 % (0.0-2.0); EOSINOPHILS % 0.2 % (0.0-5.0); HEMATOCRIT. 26.1 % (42.0-52.0); HEMOGLOBIN. 8.3 g/dL (14.0-18.0); LYMPHOCYTES % 11.5 % (20.0-50.0); MEAN CORPUSCULAR HEMOGLOBIN 23.5 pg (28.0-32.0); MONOCYTES % 6.4 % (2.0-8.0); NEUTROPHILS % 81.5 % (40.0-76.0); PLATELET 328 x1000/uL (130-400); RED BLOOD CELL COUNT 3.53 mill/uL (4.7-6.1); RED CELL DISTRIBUTION WIDTH 21.4 % (11.6-14.6)
[2022-10-28] MEDS: LACTULOSE 20G/30ML UDC PO SCH ×3 (06:00→21:35)
[2022-10-28 06:04] LABS: CHLORIDE 106 mEq/L (98-107)
[2022-10-28 06:09] LABS: PHOSPHORUS 2.4 mg/dL (2.5-4.9)
[2022-10-28] MEDS: BLOOD SUGAR DIAGNOSTIC STRIP TEST SCH ×4 (07:50→21:35)
[2022-10-28] MEDS ORDERED: POTASSIUM CHLORIDE INJ 40 MEQ in DEXT 5% WATER 250 ML IV ONE (08:15)
[2022-10-28] MEDS: INSULIN LISPRO 100 UNITS/ML SUBCUT SCH ×4 (08:20→21:00)
[2022-10-28 08:50] LABS: BG BASE EXCESS -1.6 mmol/L (-2.0-2.0); BG CARBOXYHEMOGLOBIN 0.3 % (0.5-1.5); BG DEOXYHEMOGLOBIN 0.6 % (0.0-5.0); BG FRACTION INSPIRED OXYGEN 35; BG HCO3 ACT 21.6 mmol/L (22.0-26.0); BG METHEMOGLOBIN 0.6 % (0.0-1.5); BG OXYGEN SATURATION 99.4 % (92.0-98.5); BG OXYHEMOGLOBIN 98.5 % (94.0-97.0); BG PCO2 30.5 mmHg (35.0-45.0); BG PH 7.468 (7.350-7.450); BG PO2 157.7 mmHg (75.0-100.0); BG SAMPLE SITE RIGHT RADIAL; BG TOTAL HEMOGLOBIN 8.8 g/dL (12.0-18.0); BG VENT MODE VENT - AC
[2022-10-28] MEDS ORDERED: KCL 20MEQ/100ML X 2 FOR TOTAL KCL 40MEQ/200ML IV SCH (09:00)
[2022-10-28] MEDS: ENOXAPARIN 40MG/0.4ML SYR SUBCUT SCH (09:05)
[2022-10-28] MEDS: LAMOTRIGINE 25MG TABLET PO SCH ×2 (09:07→21:35)
[2022-10-28] MEDS: PANTOPRAZOLE SODIUM 40 MG/VIAL IV SCH (09:07)
[2022-10-28] MEDS ORDERED: MAGNESIUM 4 G PREMIX 100 ML IV NR (10:00)
[2022-10-28] MEDS ORDERED: POTASSIUM PHOS,M-BASIC-D-BASIC 30 MMOL in SODIUM CHLORIDE 0.9% 500 ML IV NR (10:00)
[2022-10-28] MEDS: ACETAMINOPHEN 325MG TABLET PO PRN (13:38)
[2022-10-28] MEDS: NOREPINEPHRINE 8 MG in DEXTROSE 5% WATER 250 ML IV PRN (18:02)
[2022-10-28 23:39] LABS: CLARITY URINE CLOUDY (CLEAR); COLOR URINE YELLOW (YELLOW); KETONES URINE NEGATIVE (NEGATIVE); LEUKOCYTE ESTERASE URINE 2+ (NEGATIVE); NITRITE URINE NEGATIVE (NEGATIVE); OCCULT BLOOD URINE NEGATIVE (NEGATIVE); PH URINE 5.5 (4.5-8.0); PROTEIN URINE TRACE (NEGATIVE)
[2022-10-29] VITALS (92 sets, daily range): BP systolic 80–148; BP diastolic 44–104
[2022-10-29] MEDS: CEFEPIME 2,000 MG in DEXT 5% WATER 100 ML IV SCH ×2 (00:22→15:08)
[2022-10-29] MEDS: SODIUM CHLORIDE 0.9% 1,000 ML IV SCH ×2 (01:04→15:08)
[2022-10-29 05:39] LABS: BASOPHILS % 0.3 % (0.0-2.0); EOSINOPHILS % 0.9 % (0.0-5.0); HEMATOCRIT. 23.3 % (42.0-52.0); HEMOGLOBIN. 7.6 g/dL (14.0-18.0); LYMPHOCYTES % 19.4 % (20.0-50.0); MEAN CORPUSCULAR VOLUME 73.8 fL (80.0-94.0); MEAN PLATELET VOLUME 8.2 fl (7.4-10.4); MONOCYTES % 8.5 % (2.0-8.0); NEUTROPHILS % 70.9 % (40.0-76.0); PLATELET 305 x1000/uL (130-400); RED BLOOD CELL COUNT 3.16 mill/uL (4.7-6.1); RED CELL DISTRIBUTION WIDTH 21.3 % (11.6-14.6)
[2022-10-29 05:48] LABS: CHLORIDE 108 mEq/L (98-107)
[2022-10-29] MEDS: LACTULOSE 20G/30ML UDC PO SCH ×3 (05:55→21:22)
[2022-10-29] MEDS ORDERED: POTASSIUM CHLORIDE 20MEQ TABLET SR PO ONE (07:30)
[2022-10-29] MEDS ORDERED: KCL 20MEQ/100ML PREMIX 100 ML IV ONE (07:30)
[2022-10-29 08:05] LABS: PHOSPHORUS 1.8 mg/dL (2.5-4.9)
[2022-10-29] MEDS: BLOOD SUGAR DIAGNOSTIC STRIP TEST SCH ×4 (08:18→21:22)
[2022-10-29] MEDS: INSULIN LISPRO 100 UNITS/ML SUBCUT SCH ×4 (08:19→21:00)
[2022-10-29] MEDS ORDERED: POTASSIUM PHOS,M-BASIC-D-BASIC 15 MMOL in DEXT 5% WATER 245 ML IV SCH (09:00)
[2022-10-29] MEDS ORDERED: POTASSIUM CHLORIDE INJ 40 MEQ in DEXT 5% WATER 500 ML IV SCH (09:00)
[2022-10-29] MEDS: MENTHOL/LANOLIN/CALAMINE/ZN OX OINT 71GM TOP SCH ×2 (09:00→21:00)
[2022-10-29 09:07] LABS: BG BASE EXCESS 0.8 mmol/L (-2.0-2.0); BG CARBOXYHEMOGLOBIN 0.6 % (0.5-1.5); BG DEOXYHEMOGLOBIN 0.8 % (0.0-5.0); BG FRACTION INSPIRED OXYGEN 35; BG HCO3 ACT 24.3 mmol/L (22.0-26.0); BG METHEMOGLOBIN 0.4 % (0.0-1.5); BG OXYGEN SATURATION 99.2 % (92.0-98.5); BG OXYHEMOGLOBIN 98.2 % (94.0-97.0); BG PCO2 34.1 mmHg (35.0-45.0); BG PH 7.471 (7.350-7.450); BG PO2 149.6 mmHg (75.0-100.0); BG SAMPLE SITE RIGHT RADIAL; BG TOTAL HEMOGLOBIN 8.3 g/dL (12.0-18.0); BG VENT MODE VENT - AC
[2022-10-29] MEDS: PANTOPRAZOLE SODIUM 40 MG/VIAL IV SCH (09:16)
[2022-10-29] MEDS: LAMOTRIGINE 25MG TABLET PO SCH ×2 (09:16→21:22)
[2022-10-29] MEDS: ENOXAPARIN 40MG/0.4ML SYR SUBCUT SCH (09:17)
[2022-10-29] MEDS: IPRATROPIUM/ALBUTEROL 0.5-3(2.5)MG/3ML NEB HHN SCH ×2 (10:03→15:01)
[2022-10-29] MEDS ORDERED: IOHEXOL-350 100 ML BOTTLE ONE (12:36)
[2022-10-29 13:27] LABS: BG BASE EXCESS -1.7 mmol/L (-2.0-2.0); BG CARBOXYHEMOGLOBIN 0.3 % (0.5-1.5); BG DEOXYHEMOGLOBIN 0.8 % (0.0-5.0); BG FRACTION INSPIRED OXYGEN 35; BG HCO3 ACT 22.1 mmol/L (22.0-26.0); BG METHEMOGLOBIN 0.4 % (0.0-1.5); BG OXYGEN SATURATION 99.2 % (92.0-98.5); BG OXYHEMOGLOBIN 98.5 % (94.0-97.0); BG PCO2 33.5 mmHg (35.0-45.0); BG PH 7.437 (7.350-7.450); BG PO2 157.7 mmHg (75.0-100.0); BG SAMPLE SITE RIGHT RADIAL; BG VENT MODE VENT - CPAP
[2022-10-29 15:27] LABS: CHLORIDE 107 mEq/L (98-107)
[2022-10-29] MEDS ORDERED: VANCOMYCIN 1.25GM PMX (XELLIA) 250 ML IV NR (23:30)
[2022-10-30] VITALS (99 sets, daily range): BP systolic 46–134; BP diastolic 34–80
[2022-10-30] MEDS: IPRATROPIUM/ALBUTEROL 0.5-3(2.5)MG/3ML NEB HHN SCH ×2 (00:21→09:00)
[2022-10-30] MEDS: CEFEPIME 2,000 MG in DEXT 5% WATER 100 ML IV SCH ×2 (01:31→13:13)
[2022-10-30] MEDS: ACETAMINOPHEN 325MG TABLET PO PRN ×2 (01:41→17:20)
[2022-10-30] MEDS: SODIUM CHLORIDE 0.9% 1,000 ML IV SCH ×2 (02:39→11:54)
[2022-10-30] MEDS: LORAZEPAM 0.5MG TABLET PO PRN (03:58)
[2022-10-30 05:22] LABS: BASOPHILS % 0.4 % (0.0-2.0); EOSINOPHILS % 0.7 % (0.0-5.0); HEMATOCRIT. 22.8 % (42.0-52.0); HEMOGLOBIN. 7.3 g/dL (14.0-18.0); LYMPHOCYTES % 18.5 % (20.0-50.0); MEAN CORPUSCULAR HEMOGLOBIN 23.8 pg (28.0-32.0); MEAN CORPUSCULAR VOLUME 73.9 fL (80.0-94.0); MEAN PLATELET VOLUME 7.8 fl (7.4-10.4); MONOCYTES % 10.8 % (2.0-8.0); NEUTROPHILS % 69.6 % (40.0-76.0); PLATELET 251 x1000/uL (130-400); RED BLOOD CELL COUNT 3.09 mill/uL (4.7-6.1); RED CELL DISTRIBUTION WIDTH 21.4 % (11.6-14.6)
[2022-10-30 05:27] LABS: CHLORIDE 111 mEq/L (98-107)
[2022-10-30] MEDS: LACTULOSE 20G/30ML UDC PO SCH ×3 (06:36→21:05)
[2022-10-30] MEDS: BLOOD SUGAR DIAGNOSTIC STRIP TEST SCH ×4 (07:50→20:53)
[2022-10-30] MEDS: INSULIN LISPRO 100 UNITS/ML SUBCUT SCH ×4 (07:55→20:53)
[2022-10-30] MEDS ORDERED: VANCOMYCIN 750MG PREMIX 150 ML IV SCH ×2 (08:00→11:00)
[2022-10-30] MEDS: ENOXAPARIN 40MG/0.4ML SYR SUBCUT SCH (08:33)
[2022-10-30] MEDS: PANTOPRAZOLE SODIUM 40 MG/VIAL IV SCH (08:33)
[2022-10-30] MEDS: MENTHOL/LANOLIN/CALAMINE/ZN OX OINT 71GM TOP SCH ×2 (08:34→20:55)
[2022-10-30] MEDS: LAMOTRIGINE 25MG TABLET PO SCH ×2 (08:39→20:53)
[2022-10-30] MEDS: KCL 20MEQ/100ML X 2 FOR TOTAL KCL 40MEQ/200ML IV SCH ×2 (11:52→13:58)
[2022-10-30] MEDS ORDERED: ALBUTEROL (0.083%) 2.5MG/3ML NEB HHN PRN (12:45)
[2022-10-30] MEDS ORDERED: IPRATROPIUM BROMIDE (0.02%) 0.5MG/2.5ML NEB HHN PRN (12:45)
[2022-10-30] MEDS: MIDODRINE HCL 5MG TABLET PO SCH ×2 (13:39→17:21)
[2022-10-30] MEDS ORDERED: WATER IV NR (16:00)
[2022-10-30] MEDS ORDERED: POTASSIUM ACETATE IV NR (16:00)
[2022-10-30] MEDS ORDERED: DEXT 5% IV NR (16:00)
[2022-10-30] MEDS: ALBUTEROL (0.083%) 2.5MG/3ML NEB HHN SCH (16:35)
[2022-10-30] MEDS: IPRATROPIUM BROMIDE (0.02%) 0.5MG/2.5ML NEB HHN SCH (16:35)
[2022-10-30] MEDS: VANCOMYCIN 750MG PREMIX 150 ML IV SCH (20:53)
[2022-10-30] MEDS ORDERED: NALOXONE HCL 0.4MG/ML VIAL IV PRN (22:45)
[2022-10-30] MEDS: OXYCODONE HCL/ACETAMINOPHEN 5/325MG TABLET PO PRN (22:56)
[2022-10-31] VITALS (92 sets, daily range): BP systolic 82–126; BP diastolic 39–85
[2022-10-31] MEDS: IPRATROPIUM BROMIDE (0.02%) 0.5MG/2.5ML NEB HHN SCH ×3 (00:10→16:14)
[2022-10-31] MEDS: ALBUTEROL (0.083%) 2.5MG/3ML NEB HHN SCH ×3 (00:10→16:14)
[2022-10-31] MEDS: CEFEPIME 2,000 MG in DEXT 5% WATER 100 ML IV SCH ×2 (01:38→12:51)
[2022-10-31] MEDS: ACETAMINOPHEN 325MG TABLET PO PRN (01:39)
[2022-10-31] MEDS: VANCOMYCIN 750MG PREMIX 150 ML IV SCH (03:28)
[2022-10-31] MEDS: SODIUM CHLORIDE 0.9% 1,000 ML IV SCH ×2 (03:28→17:18)
[2022-10-31 05:33] LABS: BASOPHILS % 0.5 % (0.0-2.0); HEMATOCRIT. 22.1 % (42.0-52.0); HEMOGLOBIN. 7.2 g/dL (14.0-18.0); LYMPHOCYTES % 22.6 % (20.0-50.0); MEAN CORPUSCULAR HEMOGLOBIN 24.2 pg (28.0-32.0); MEAN CORPUSCULAR VOLUME 74.4 fL (80.0-94.0); MEAN PLATELET VOLUME 8.1 fl (7.4-10.4); NEUTROPHILS % 62.9 % (40.0-76.0); PLATELET 263 x1000/uL (130-400); RED BLOOD CELL COUNT 2.97 mill/uL (4.7-6.1); RED CELL DISTRIBUTION WIDTH 21.4 % (11.6-14.6)
[2022-10-31 05:42] LABS: CHLORIDE 110 mEq/L (98-107)
[2022-10-31] MEDS: LACTULOSE 20G/30ML UDC PO SCH ×3 (06:00→21:44)
[2022-10-31] MEDS ORDERED: POTASSIUM CHLORIDE INJ 40 MEQ in DEXT 5% WATER 250 ML IV ONE (08:15)
[2022-10-31] MEDS: INSULIN LISPRO 100 UNITS/ML SUBCUT SCH ×4 (08:20→21:00)
[2022-10-31] MEDS: BLOOD SUGAR DIAGNOSTIC STRIP TEST SCH ×4 (08:34→21:00)
[2022-10-31] MEDS: KCL 20MEQ/100ML X 2 FOR TOTAL KCL 40MEQ/200ML IV SCH ×2 (08:46→10:33)
[2022-10-31] MEDS: LAMOTRIGINE 25MG TABLET PO SCH ×2 (08:48→21:00)
[2022-10-31] MEDS: PANTOPRAZOLE SODIUM 40 MG/VIAL IV SCH (08:48)
[2022-10-31] MEDS: MIDODRINE HCL 5MG TABLET PO SCH ×3 (08:48→17:18)
[2022-10-31] MEDS: MENTHOL/LANOLIN/CALAMINE/ZN OX OINT 71GM TOP SCH ×2 (08:49→21:43)
[2022-10-31] MEDS: ENOXAPARIN 40MG/0.4ML SYR SUBCUT SCH (08:49)
[2022-10-31] MEDS: OXYCODONE HCL/ACETAMINOPHEN 5/325MG TABLET PO PRN (10:52)
[2022-10-31] MEDS: VANCOMYCIN 1G PREMIX 200 ML IV SCH (15:03)
[2022-10-31] MEDS: GUAIFENESIN 200MG/10ML SUGAR FREE UDC PO PRN (15:30)
[2022-10-31] MEDS: LORAZEPAM 0.5MG TABLET PO PRN (15:30)
[2022-10-31] MEDS ORDERED: LORAZEPAM 2MG/ML CPJ IV NR (20:00)
[2022-11-01] VITALS (88 sets, daily range): BP systolic 60–132; BP diastolic 31–102
[2022-11-01] MEDS: IPRATROPIUM BROMIDE (0.02%) 0.5MG/2.5ML NEB HHN SCH ×3 (02:30→15:50)
[2022-11-01] MEDS: ALBUTEROL (0.083%) 2.5MG/3ML NEB HHN SCH ×3 (02:30→15:50)
[2022-11-01] MEDS: CEFEPIME 2,000 MG in DEXT 5% WATER 100 ML IV SCH ×2 (02:38→12:59)
[2022-11-01 05:45] LABS: CHLORIDE 109 mEq/L (98-107)
[2022-11-01] MEDS: SODIUM CHLORIDE 0.9% 1,000 ML IV SCH ×2 (05:55→17:26)
[2022-11-01] MEDS: VANCOMYCIN 1G PREMIX 200 ML IV SCH ×2 (05:55→17:48)
[2022-11-01] MEDS: LACTULOSE 20G/30ML UDC PO SCH ×3 (05:55→21:16)
[2022-11-01] MEDS: SODIUM HYPOCHLORITE 0.125% 473ML SOLUTION TOP SCH (06:36)
[2022-11-01] MEDS: NOREPINEPHRINE 8 MG in DEXTROSE 5% WATER 250 ML IV PRN (06:38)
[2022-11-01 08:18] LABS: BASOPHILS % 0.5 % (0.0-2.0); EOSINOPHILS % 3.9 % (0.0-5.0); LYMPHOCYTES % 15.6 % (20.0-50.0); MEAN CORPUSCULAR VOLUME 73.1 fL (80.0-94.0); MEAN PLATELET VOLUME 8.4 fl (7.4-10.4); PLATELET 302 x1000/uL (130-400); RED BLOOD CELL COUNT 2.91 mill/uL (4.7-6.1); RED CELL DISTRIBUTION WIDTH 21.9 % (11.6-14.6)
[2022-11-01] MEDS: INSULIN LISPRO 100 UNITS/ML SUBCUT SCH ×5 (08:20→21:00)
[2022-11-01] MEDS: BLOOD SUGAR DIAGNOSTIC STRIP TEST SCH ×4 (08:23→21:06)
[2022-11-01] MEDS: PANTOPRAZOLE SODIUM 40 MG/VIAL IV SCH (08:24)
[2022-11-01] MEDS: LAMOTRIGINE 25MG TABLET PO SCH ×2 (08:25→21:16)
[2022-11-01] MEDS: MIDODRINE HCL 5MG TABLET PO SCH ×3 (08:25→17:43)
[2022-11-01] MEDS: ENOXAPARIN 40MG/0.4ML SYR SUBCUT SCH (08:25)
[2022-11-01] MEDS: MENTHOL/LANOLIN/CALAMINE/ZN OX OINT 71GM TOP SCH ×2 (08:25→21:16)
[2022-11-01 08:43] LABS: HEMATOCRIT. 21.3 % (42.0-52.0)
[2022-11-01] MEDS ORDERED: SODIUM HYPOCHLORITE (0.25%) 480ML SOLUTION (HALF STRENGTH) TOP SCH (09:00)
[2022-11-01] MEDS ORDERED: POTASSIUM CHLORIDE INJ 40 MEQ in DEXT 5% WATER 250 ML IV ONE (09:45)
[2022-11-01] MEDS: ACETAMINOPHEN 325MG TABLET PO PRN (11:12)
[2022-11-01] MEDS: GUAIFENESIN 200MG/10ML SUGAR FREE UDC PO PRN (11:12)
[2022-11-01] MEDS: LORAZEPAM 0.5MG TABLET PO PRN (11:12)
[2022-11-01] MEDS: KCL 20MEQ/100ML X 2 FOR TOTAL KCL 40MEQ/200ML IV SCH ×2 (11:13→12:00)
[2022-11-01 17:36] LABS: HEMATOCRIT 26.8 % (42.0-52.0); HEMOGLOBIN 8.8 g/dL (14.0-18.0); MEAN CORPUSCULAR HEMOGLOBIN 24.8 pg (28.0-32.0); MEAN CORPUSCULAR VOLUME 75.7 fL (80.0-94.0); PLATELET 279 x1000/uL (130-400); RED BLOOD CELL COUNT 3.54 mill/uL (4.7-6.1)
[2022-11-01] MEDS: OXYCODONE HCL/ACETAMINOPHEN 5/325MG TABLET PO PRN (21:16)
[2022-11-02] VITALS (63 sets, daily range): BP systolic 75–135; BP diastolic 21–83
[2022-11-02] MEDS: IPRATROPIUM BROMIDE (0.02%) 0.5MG/2.5ML NEB HHN SCH ×4 (00:24→23:56)
[2022-11-02] MEDS: ALBUTEROL (0.083%) 2.5MG/3ML NEB HHN SCH ×4 (00:24→23:56)
[2022-11-02] MEDS: SODIUM CHLORIDE 0.9% 1,000 ML IV SCH ×2 (01:10→17:23)
[2022-11-02] MEDS: LORAZEPAM 0.5MG TABLET PO PRN ×2 (04:26→21:21)
[2022-11-02 04:33] LABS: CHLORIDE 108 mEq/L (98-107)
[2022-11-02 04:40] LABS: VANCOMYCIN TROUGH 16.1 ug/mL (5.0-10.0)
[2022-11-02 05:05] LABS: BASOPHILS % 0.7 % (0.0-2.0); EOSINOPHILS % 4.4 % (0.0-5.0); HEMATOCRIT. 26.7 % (42.0-52.0); HEMOGLOBIN. 8.9 g/dL (14.0-18.0); LYMPHOCYTES % 25.9 % (20.0-50.0); MEAN CORPUSCULAR HEMOGLOBIN 24.9 pg (28.0-32.0); MEAN CORPUSCULAR VOLUME 75.3 fL (80.0-94.0); MEAN PLATELET VOLUME 8.2 fl (7.4-10.4); MONOCYTES % 9.6 % (2.0-8.0); NEUTROPHILS % 59.4 % (40.0-76.0); PLATELET 263 x1000/uL (130-400); RED BLOOD CELL COUNT 3.55 mill/uL (4.7-6.1)
[2022-11-02] MEDS: VANCOMYCIN 1G PREMIX 200 ML IV SCH ×2 (06:03→17:23)
[2022-11-02] MEDS: LACTULOSE 20G/30ML UDC PO SCH ×3 (06:03→21:20)
[2022-11-02] MEDS: BLOOD SUGAR DIAGNOSTIC STRIP TEST SCH ×4 (07:50→21:20)
[2022-11-02] MEDS: INSULIN LISPRO 100 UNITS/ML SUBCUT SCH ×4 (08:20→21:00)
[2022-11-02] MEDS: SODIUM HYPOCHLORITE 0.125% 473ML SOLUTION TOP SCH (09:01)
[2022-11-02] MEDS: MIDODRINE HCL 5MG TABLET PO SCH ×3 (09:01→21:20)
[2022-11-02] MEDS: LAMOTRIGINE 25MG TABLET PO SCH ×2 (09:01→21:19)
[2022-11-02] MEDS: ENOXAPARIN 40MG/0.4ML SYR SUBCUT SCH (09:01)
[2022-11-02] MEDS: MENTHOL/LANOLIN/CALAMINE/ZN OX OINT 71GM TOP SCH ×2 (09:02→21:22)
[2022-11-02] MEDS: PANTOPRAZOLE SODIUM 40 MG/VIAL IV SCH (09:03)
[2022-11-02] MEDS ORDERED: POTASSIUM CHLORIDE 20MEQ TABLET SR PO NR (09:30)
[2022-11-02 10:55] LABS: PLATELET ESTIMATE NORMAL
[2022-11-02] MEDS: OXYCODONE HCL/ACETAMINOPHEN 5/325MG TABLET PO PRN ×2 (13:07→21:21)
[2022-11-02] MEDS: ACETAMINOPHEN 325MG TABLET PO PRN (15:55)
[2022-11-02] MEDS: ZOLPIDEM TARTRATE 5MG TABLET PO PRN (21:21)
[2022-11-03] VITALS (19 sets, daily range): BP systolic 56–141; BP diastolic 32–78
[2022-11-03] MEDS: OXYCODONE HCL/ACETAMINOPHEN 5/325MG TABLET PO PRN ×3 (01:29→21:04)
[2022-11-03] MEDS: LORAZEPAM 0.5MG TABLET PO PRN ×3 (01:29→21:04)
[2022-11-03 05:28] LABS: BASOPHILS % 0.9 % (0.0-2.0); HEMATOCRIT. 25.7 % (42.0-52.0); HEMOGLOBIN. 8.6 g/dL (14.0-18.0); LYMPHOCYTES % 35.1 % (20.0-50.0); MEAN CORPUSCULAR HEMOGLOBIN 25.2 pg (28.0-32.0); MEAN PLATELET VOLUME 7.6 fl (7.4-10.4); MONOCYTES % 10.6 % (2.0-8.0); NEUTROPHILS % 48.4 % (40.0-76.0); PLATELET 317 x1000/uL (130-400); RED BLOOD CELL COUNT 3.43 mill/uL (4.7-6.1); RED CELL DISTRIBUTION WIDTH 21.6 % (11.6-14.6)
[2022-11-03 05:39] LABS: CHLORIDE 106 mEq/L (98-107)
[2022-11-03] MEDS: LACTULOSE 20G/30ML UDC PO SCH ×3 (06:12→21:02)
[2022-11-03] MEDS: MIDODRINE HCL 5MG TABLET PO SCH ×3 (06:12→21:02)
[2022-11-03] MEDS: SODIUM CHLORIDE 0.9% 1,000 ML IV SCH ×2 (06:12→17:51)
[2022-11-03] MEDS: VANCOMYCIN 1G PREMIX 200 ML IV SCH ×2 (06:12→17:00)
[2022-11-03] MEDS: SODIUM HYPOCHLORITE 0.125% 473ML SOLUTION TOP SCH (08:01)
[2022-11-03] MEDS: MENTHOL/LANOLIN/CALAMINE/ZN OX OINT 71GM TOP SCH ×2 (08:01→21:06)
[2022-11-03] MEDS: ENOXAPARIN 40MG/0.4ML SYR SUBCUT SCH (08:01)
[2022-11-03] MEDS: LAMOTRIGINE 25MG TABLET PO SCH ×2 (08:02→21:02)
[2022-11-03] MEDS: BLOOD SUGAR DIAGNOSTIC STRIP TEST SCH ×4 (08:02→21:04)
[2022-11-03] MEDS: PANTOPRAZOLE SODIUM 40 MG/VIAL IV SCH (08:02)
[2022-11-03] MEDS: INSULIN LISPRO 100 UNITS/ML SUBCUT SCH ×4 (08:17→21:00)
[2022-11-03] MEDS: IPRATROPIUM BROMIDE (0.02%) 0.5MG/2.5ML NEB HHN SCH ×2 (09:40→19:00)
[2022-11-03] MEDS: ALBUTEROL (0.083%) 2.5MG/3ML NEB HHN SCH (09:40)
[2022-11-03] MEDS: ZOLPIDEM TARTRATE 5MG TABLET PO PRN (21:04)
[2022-11-04] VITALS (11 sets, daily range): BP systolic 93–134; BP diastolic 55–93
[2022-11-04] MEDS: ALBUTEROL (0.083%) 2.5MG/3ML NEB HHN SCH (01:00)
[2022-11-04] MEDS: IPRATROPIUM BROMIDE (0.02%) 0.5MG/2.5ML NEB HHN SCH (01:00)
[2022-11-04] MEDS: OXYCODONE HCL/ACETAMINOPHEN 5/325MG TABLET PO PRN ×2 (02:22→15:52)
[2022-11-04] MEDS: LORAZEPAM 0.5MG TABLET PO PRN ×3 (02:24→15:52)
[2022-11-04] MEDS: LACTULOSE 20G/30ML UDC PO SCH ×3 (05:50→21:50)
[2022-11-04] MEDS: VANCOMYCIN 1G PREMIX 200 ML IV SCH ×2 (05:50→17:15)
[2022-11-04] MEDS: MIDODRINE HCL 5MG TABLET PO SCH ×3 (05:51→21:51)
[2022-11-04] MEDS: SODIUM CHLORIDE 0.9% 1,000 ML IV SCH ×2 (07:29→16:29)
[2022-11-04] MEDS: BLOOD SUGAR DIAGNOSTIC STRIP TEST SCH ×4 (07:30→21:52)
[2022-11-04] MEDS: INSULIN LISPRO 100 UNITS/ML SUBCUT SCH ×4 (08:00→21:00)
[2022-11-04] MEDS: ACETAMINOPHEN 325MG TABLET PO PRN (08:29)
[2022-11-04] MEDS: ENOXAPARIN 40MG/0.4ML SYR SUBCUT SCH (08:30)
[2022-11-04] MEDS: LAMOTRIGINE 25MG TABLET PO SCH ×2 (08:30→21:51)
[2022-11-04] MEDS: PANTOPRAZOLE SODIUM 40 MG/VIAL IV SCH (08:30)
[2022-11-04] MEDS: ONDANSETRON HCL 4MG/2ML INJ IV PRN (08:30)
[2022-11-04] MEDS: SODIUM HYPOCHLORITE 0.125% 473ML SOLUTION TOP SCH ×2 (09:19→21:52)
[2022-11-04] MEDS: MENTHOL/LANOLIN/CALAMINE/ZN OX OINT 71GM TOP SCH ×2 (09:19→21:53)
[2022-11-04] MEDS ORDERED: MIDO5TAB4 PO (10:46)
[2022-11-04] MEDS: DULOXETINE HCL 30MG DR CAPSULE PO SCH (13:54)
[2022-11-04] MEDS: TRAZODONE HCL 50MG TABLET PO SCH (21:51)
[2022-11-05] VITALS (7 sets, daily range): BP systolic 92–122; BP diastolic 58–68
[2022-11-05] MEDS: IPRATROPIUM BROMIDE (0.02%) 0.5MG/2.5ML NEB HHN SCH ×3 (01:00→16:18)
[2022-11-05] MEDS: ALBUTEROL (0.083%) 2.5MG/3ML NEB HHN SCH ×3 (01:00→16:18)
[2022-11-05] MEDS: LACTULOSE 20G/30ML UDC PO SCH ×3 (06:04→20:29)
[2022-11-05] MEDS: MIDODRINE HCL 5MG TABLET PO SCH ×3 (06:04→20:29)
[2022-11-05] MEDS: VANCOMYCIN 1G PREMIX 200 ML IV SCH ×2 (06:04→18:17)
[2022-11-05] MEDS: INSULIN LISPRO 100 UNITS/ML SUBCUT SCH ×4 (08:00→20:29)
[2022-11-05] MEDS: PANTOPRAZOLE SODIUM 40 MG/VIAL IV SCH (08:17)
[2022-11-05] MEDS: LAMOTRIGINE 25MG TABLET PO SCH ×2 (08:17→20:28)
[2022-11-05] MEDS: DULOXETINE HCL 30MG DR CAPSULE PO SCH ×2 (08:17→18:16)
[2022-11-05] MEDS: ACETAMINOPHEN 325MG TABLET PO PRN ×2 (08:17→18:17)
[2022-11-05] MEDS: ENOXAPARIN 40MG/0.4ML SYR SUBCUT SCH (08:18)
[2022-11-05] MEDS: BLOOD SUGAR DIAGNOSTIC STRIP TEST SCH ×4 (08:18→20:29)
[2022-11-05] MEDS: SODIUM CHLORIDE 0.9% 1,000 ML IV SCH ×2 (08:28→20:27)
[2022-11-05] MEDS: MENTHOL/LANOLIN/CALAMINE/ZN OX OINT 71GM TOP SCH ×2 (08:29→20:29)
[2022-11-05] MEDS: LORAZEPAM 0.5MG TABLET PO PRN ×2 (09:20→18:44)
[2022-11-05] MEDS: ONDANSETRON HCL 4MG/2ML INJ IV PRN (12:03)
[2022-11-05] MEDS: ZOLPIDEM TARTRATE 5MG TABLET PO PRN (20:28)
[2022-11-05] MEDS: TRAZODONE HCL 50MG TABLET PO SCH (20:28)
[2022-11-06] VITALS: BP 108/59
[2022-11-06] MEDS: ALBUTEROL (0.083%) 2.5MG/3ML NEB HHN SCH ×3 (01:00→15:17)
[2022-11-06] MEDS: IPRATROPIUM BROMIDE (0.02%) 0.5MG/2.5ML NEB HHN SCH ×3 (01:00→15:17)
[2022-11-06 04:00] VITALS: BP 103/57
[2022-11-06] MEDS: VANCOMYCIN 1G PREMIX 200 ML IV SCH ×2 (05:44→17:36)
[2022-11-06] MEDS: ACETAMINOPHEN 325MG TABLET PO PRN ×3 (05:44→21:58)
[2022-11-06] MEDS: LACTULOSE 20G/30ML UDC PO SCH ×3 (05:44→21:57)
[2022-11-06] MEDS: MIDODRINE HCL 5MG TABLET PO SCH ×3 (05:44→21:59)
[2022-11-06] MEDS: BLOOD SUGAR DIAGNOSTIC STRIP TEST SCH ×4 (05:45→21:52)
[2022-11-06] MEDS: INSULIN LISPRO 100 UNITS/ML SUBCUT SCH ×4 (05:52→21:00)
[2022-11-06 08:30] VITALS: BP 120/76
[2022-11-06] MEDS: DULOXETINE HCL 30MG DR CAPSULE PO SCH ×2 (09:20→17:35)
[2022-11-06] MEDS: PANTOPRAZOLE SODIUM 40 MG/VIAL IV SCH (09:21)
[2022-11-06] MEDS: ENOXAPARIN 40MG/0.4ML SYR SUBCUT SCH (09:21)
[2022-11-06] MEDS: LAMOTRIGINE 25MG TABLET PO SCH ×2 (09:21→21:58)
[2022-11-06] MEDS: SODIUM CHLORIDE 0.9% 1,000 ML IV SCH ×2 (09:23→21:58)
[2022-11-06] MEDS: MENTHOL/LANOLIN/CALAMINE/ZN OX OINT 71GM TOP SCH ×2 (09:28→21:58)
[2022-11-06] MEDS: SODIUM HYPOCHLORITE 0.125% 473ML SOLUTION TOP SCH (09:28)
[2022-11-06 12:00] VITALS: BP 114/65
[2022-11-06 16:00] VITALS: BP 120/47
[2022-11-06] MEDS ORDERED: MORPHINE SULFATE 2 MG/ML CPJ (NOT FOR IM USE) IV PRN (17:00)
[2022-11-06] MEDS: MORPHINE SULFATE 2 MG/ML CPJ (NOT FOR IM USE) IV PRN (17:36)
[2022-11-06 20:00] VITALS: BP 131/66
[2022-11-06] MEDS: TRAZODONE HCL 50MG TABLET PO SCH (21:58)
[2022-11-07] MEDS: ALBUTEROL (0.083%) 2.5MG/3ML NEB HHN SCH ×3 (00:22→14:25)
[2022-11-07] MEDS: IPRATROPIUM BROMIDE (0.02%) 0.5MG/2.5ML NEB HHN SCH ×3 (00:22→14:25)
[2022-11-07] MEDS: MORPHINE SULFATE 2 MG/ML CPJ (NOT FOR IM USE) IV PRN ×3 (01:55→15:22)
[2022-11-07 04:00] VITALS: BP 121/67
[2022-11-07] MEDS: MIDODRINE HCL 5MG TABLET PO SCH ×3 (06:00→20:54)
[2022-11-07] MEDS: LACTULOSE 20G/30ML UDC PO SCH ×2 (06:00→14:00)
[2022-11-07] MEDS: INSULIN LISPRO 100 UNITS/ML SUBCUT SCH ×4 (07:54→20:56)
[2022-11-07] MEDS: BLOOD SUGAR DIAGNOSTIC STRIP TEST SCH ×4 (07:54→20:57)
[2022-11-07 08:00] VITALS: BP 130/73
[2022-11-07] MEDS: PANTOPRAZOLE SODIUM 40 MG/VIAL IV SCH (08:59)
[2022-11-07] MEDS: MENTHOL/LANOLIN/CALAMINE/ZN OX OINT 71GM TOP SCH ×2 (09:00→20:56)
[2022-11-07] MEDS: LAMOTRIGINE 25MG TABLET PO SCH ×2 (09:00→20:53)
[2022-11-07] MEDS: ENOXAPARIN 40MG/0.4ML SYR SUBCUT SCH (09:00)
[2022-11-07] MEDS: DULOXETINE HCL 30MG DR CAPSULE PO SCH ×2 (09:00→18:09)
[2022-11-07] MEDS: SODIUM HYPOCHLORITE 0.125% 473ML SOLUTION TOP SCH ×2 (09:01→20:55)
[2022-11-07] MEDS: SODIUM CHLORIDE 0.9% 1,000 ML IV SCH (09:01)
[2022-11-07 12:00] VITALS: BP 133/75
[2022-11-07] MEDS ORDERED: MORPHINE SULFATE 2 MG/ML CPJ (NOT FOR IM USE) IV NR (12:00)
[2022-11-07 16:00] VITALS: BP 126/67
[2022-11-07 20:00] VITALS: BP 110/70
[2022-11-07] MEDS: TRAZODONE HCL 50MG TABLET PO SCH (20:52)
[2022-11-07] MEDS: ACETAMINOPHEN 325MG TABLET PO PRN (20:53)
[2022-11-08] VITALS: BP 94/58
[2022-11-08] MEDS: ALBUTEROL (0.083%) 2.5MG/3ML NEB HHN SCH ×3 (01:27→16:52)
[2022-11-08] MEDS: IPRATROPIUM BROMIDE (0.02%) 0.5MG/2.5ML NEB HHN SCH ×3 (01:27→16:51)
[2022-11-08] MEDS: LACTULOSE 20G/30ML UDC PO SCH ×4 (01:35→20:57)
[2022-11-08 04:00] VITALS: BP 97/48
[2022-11-08] MEDS: MIDODRINE HCL 5MG TABLET PO SCH ×3 (05:31→20:57)
[2022-11-08] MEDS: SODIUM CHLORIDE 0.9% 1,000 ML IV SCH ×2 (05:33→10:43)
[2022-11-08] MEDS: BLOOD SUGAR DIAGNOSTIC STRIP TEST SCH ×4 (07:44→20:58)
[2022-11-08] MEDS: INSULIN LISPRO 100 UNITS/ML SUBCUT SCH ×4 (07:44→20:58)
[2022-11-08] MEDS: DULOXETINE HCL 30MG DR CAPSULE PO SCH ×3 (09:00→18:07)
[2022-11-08] MEDS: PANTOPRAZOLE SODIUM 40 MG/VIAL IV SCH ×2 (09:00→10:40)
[2022-11-08] MEDS: LAMOTRIGINE 25MG TABLET PO SCH ×3 (09:00→20:57)
[2022-11-08] MEDS: ENOXAPARIN 40MG/0.4ML SYR SUBCUT SCH (10:40)
[2022-11-08] MEDS: MENTHOL/LANOLIN/CALAMINE/ZN OX OINT 71GM TOP SCH ×2 (10:42→20:58)
[2022-11-08 16:00] VITALS: BP 106/58
[2022-11-08] MEDS: MORPHINE SULFATE 2 MG/ML CPJ (NOT FOR IM USE) IV PRN (16:20)
[2022-11-08 16:44] LABS: BASOPHILS % 0.2 % (0.0-2.0); EOSINOPHILS % 0.7 % (0.0-5.0); HEMATOCRIT. 26.4 % (42.0-52.0); HEMOGLOBIN. 8.6 g/dL (14.0-18.0); LYMPHOCYTES % 13.9 % (20.0-50.0); MEAN CORPUSCULAR HEMOGLOBIN 25.3 pg (28.0-32.0); MEAN CORPUSCULAR VOLUME 78.3 fL (80.0-94.0); MEAN PLATELET VOLUME 7.6 fl (7.4-10.4); MONOCYTES % 4.4 % (2.0-8.0); NEUTROPHILS % 80.8 % (40.0-76.0); PLATELET 380 x1000/uL (130-400); RED BLOOD CELL COUNT 3.37 mill/uL (4.7-6.1); RED CELL DISTRIBUTION WIDTH 23.2 % (11.6-14.6)
[2022-11-08 16:59] LABS: CHLORIDE 110 mEq/L (98-107)
[2022-11-08] MEDS: LORAZEPAM 2MG/ML CPJ IV PRN (18:07)
[2022-11-08] MEDS: HYDROCODONE/ACETAMINOPHEN 5/325MG TABLET PO PRN (18:07)
[2022-11-08 20:00] VITALS: BP 99/53
[2022-11-08] MEDS: TRAZODONE HCL 50MG TABLET PO SCH (20:57)
[2022-11-09] VITALS: BP 96/53
[2022-11-09] MEDS: SODIUM CHLORIDE 0.9% 1,000 ML IV SCH ×2 (00:38→13:44)
[2022-11-09] MEDS: IPRATROPIUM BROMIDE (0.02%) 0.5MG/2.5ML NEB HHN SCH ×3 (01:18→17:00)
[2022-11-09] MEDS: ALBUTEROL (0.083%) 2.5MG/3ML NEB HHN SCH ×3 (01:18→17:00)
[2022-11-09 04:00] VITALS: BP 104/63
[2022-11-09] MEDS: MIDODRINE HCL 5MG TABLET PO SCH ×3 (04:44→21:10)
[2022-11-09] MEDS: LACTULOSE 20G/30ML UDC PO SCH ×4 (04:44→21:15)
[2022-11-09] MEDS: HYDROCODONE/ACETAMINOPHEN 5/325MG TABLET PO PRN ×2 (04:45→08:55)
[2022-11-09] MEDS: BLOOD SUGAR DIAGNOSTIC STRIP TEST SCH ×4 (07:58→20:20)
[2022-11-09] MEDS: INSULIN LISPRO 100 UNITS/ML SUBCUT SCH ×4 (07:59→20:20)
[2022-11-09] MEDS: PANTOPRAZOLE SODIUM 40 MG/VIAL IV SCH (08:53)
[2022-11-09] MEDS: ENOXAPARIN 40MG/0.4ML SYR SUBCUT SCH (08:53)
[2022-11-09] MEDS: LAMOTRIGINE 25MG TABLET PO SCH ×2 (08:54→21:11)
[2022-11-09] MEDS: DULOXETINE HCL 30MG DR CAPSULE PO SCH ×2 (08:54→18:16)
[2022-11-09] MEDS ORDERED: POTASSIUM CHLORIDE 20MEQ TABLET SR PO NR (09:15)
[2022-11-09 10:00] VITALS: BP 120/78
[2022-11-09] MEDS: MENTHOL/LANOLIN/CALAMINE/ZN OX OINT 71GM TOP SCH ×2 (10:30→21:11)
[2022-11-09] MEDS: SODIUM HYPOCHLORITE 0.125% 473ML SOLUTION TOP SCH (10:31)
[2022-11-09] MEDS: ACETAMINOPHEN 325MG TABLET PO PRN (10:57)
[2022-11-09 12:00] VITALS: BP 148/67
[2022-11-09 16:00] VITALS: BP 138/79
[2022-11-09 20:02] VITALS: BP 126/72
[2022-11-09] MEDS: TRAZODONE HCL 50MG TABLET PO SCH (21:10)
[2022-11-10] VITALS (7 sets, daily range): BP systolic 113–178; BP diastolic 69–128
[2022-11-10] MEDS: SODIUM CHLORIDE 0.9% 1,000 ML IV SCH ×2 (01:27→13:29)
[2022-11-10] MEDS: IPRATROPIUM BROMIDE (0.02%) 0.5MG/2.5ML NEB HHN SCH ×3 (01:38→14:56)
[2022-11-10] MEDS: ALBUTEROL (0.083%) 2.5MG/3ML NEB HHN SCH ×3 (01:38→14:56)
[2022-11-10] MEDS: LACTULOSE 20G/30ML UDC PO SCH ×3 (05:22→21:31)
[2022-11-10] MEDS: MIDODRINE HCL 5MG TABLET PO SCH ×3 (05:22→21:31)
[2022-11-10] MEDS: BLOOD SUGAR DIAGNOSTIC STRIP TEST SCH ×4 (06:46→20:19)
[2022-11-10 07:37] LABS: BASOPHILS % 0.6 % (0.0-2.0); HEMATOCRIT. 28.6 % (42.0-52.0); HEMOGLOBIN. 9.4 g/dL (14.0-18.0); LYMPHOCYTES % 20.9 % (20.0-50.0); MEAN CORPUSCULAR HEMOGLOBIN 25.6 pg (28.0-32.0); MEAN CORPUSCULAR VOLUME 77.8 fL (80.0-94.0); MEAN PLATELET VOLUME 7.8 fl (7.4-10.4); MONOCYTES % 5.6 % (2.0-8.0); NEUTROPHILS % 71.9 % (40.0-76.0); PLATELET 387 x1000/uL (130-400); RED BLOOD CELL COUNT 3.68 mill/uL (4.7-6.1); RED CELL DISTRIBUTION WIDTH 23.8 % (11.6-14.6)
[2022-11-10] MEDS: INSULIN LISPRO 100 UNITS/ML SUBCUT SCH ×4 (08:07→20:19)
[2022-11-10 08:14] LABS: CHLORIDE 111 mEq/L (98-107)
[2022-11-10] MEDS: MENTHOL/LANOLIN/CALAMINE/ZN OX OINT 71GM TOP SCH ×2 (09:00→20:19)
[2022-11-10] MEDS ORDERED: POTASSIUM CHLORIDE 20MEQ TABLET SR PO NR ×2 (09:45→18:00)
[2022-11-10] MEDS: PANTOPRAZOLE SODIUM 40 MG/VIAL IV SCH (10:30)
[2022-11-10] MEDS: DULOXETINE HCL 30MG DR CAPSULE PO SCH ×2 (10:31→16:10)
[2022-11-10] MEDS: LAMOTRIGINE 25MG TABLET PO SCH ×2 (10:31→20:19)
[2022-11-10] MEDS: SODIUM HYPOCHLORITE 0.125% 473ML SOLUTION TOP SCH (10:31)
[2022-11-10] MEDS: ENOXAPARIN 40MG/0.4ML SYR SUBCUT SCH (10:32)
[2022-11-10 11:57] LABS: PHOSPHORUS 2.8 mg/dL (2.5-4.9)
[2022-11-10] MEDS: MORPHINE SULFATE 2 MG/ML CPJ (NOT FOR IM USE) IV PRN (16:11)
[2022-11-10] MEDS: TRAZODONE HCL 50MG TABLET PO SCH (20:19)
[2022-11-11] VITALS: BP 101/68
[2022-11-11] MEDS: SODIUM CHLORIDE 0.9% 1,000 ML IV SCH ×2 (02:12→15:15)
[2022-11-11] MEDS: IPRATROPIUM BROMIDE (0.02%) 0.5MG/2.5ML NEB HHN SCH ×3 (02:28→17:00)
[2022-11-11] MEDS: ALBUTEROL (0.083%) 2.5MG/3ML NEB HHN SCH ×3 (02:28→17:00)
[2022-11-11 05:00] VITALS: BP 133/75
[2022-11-11] MEDS: MIDODRINE HCL 5MG TABLET PO SCH ×3 (05:28→21:13)
[2022-11-11] MEDS: MORPHINE SULFATE 2 MG/ML CPJ (NOT FOR IM USE) IV PRN ×2 (05:29→15:13)
[2022-11-11] MEDS: LACTULOSE 20G/30ML UDC PO SCH ×3 (05:32→21:12)
[2022-11-11] MEDS: BLOOD SUGAR DIAGNOSTIC STRIP TEST SCH ×4 (06:42→20:33)
[2022-11-11 08:00] VITALS: BP 121/70
[2022-11-11] MEDS: INSULIN LISPRO 100 UNITS/ML SUBCUT SCH ×4 (08:10→20:33)
[2022-11-11] MEDS: DULOXETINE HCL 30MG DR CAPSULE PO SCH ×2 (09:47→16:31)
[2022-11-11] MEDS: LAMOTRIGINE 25MG TABLET PO SCH ×2 (09:47→20:53)
[2022-11-11] MEDS: ENOXAPARIN 40MG/0.4ML SYR SUBCUT SCH (09:48)
[2022-11-11] MEDS: PANTOPRAZOLE SODIUM 40 MG/VIAL IV SCH (09:49)
[2022-11-11] MEDS: SODIUM HYPOCHLORITE 0.125% 473ML SOLUTION TOP SCH (09:51)
[2022-11-11] MEDS: MENTHOL/LANOLIN/CALAMINE/ZN OX OINT 71GM TOP SCH ×2 (09:51→20:54)
[2022-11-11 16:00] VITALS: BP 116/69
[2022-11-11] MEDS: HYDROCODONE/ACETAMINOPHEN 5/325MG TABLET PO PRN (18:10)
[2022-11-11 20:00] VITALS: BP 132/79
[2022-11-11] MEDS: TRAZODONE HCL 50MG TABLET PO SCH (20:53)
[2022-11-11] MEDS: LORAZEPAM 2MG/ML CPJ IV PRN (23:57)
[2022-11-12] MEDS: IPRATROPIUM BROMIDE (0.02%) 0.5MG/2.5ML NEB HHN SCH ×3 (01:08→16:16)
[2022-11-12] MEDS: ALBUTEROL (0.083%) 2.5MG/3ML NEB HHN SCH ×3 (01:09→16:16)
[2022-11-12] MEDS: SODIUM CHLORIDE 0.9% 1,000 ML IV SCH ×2 (03:25→18:20)
[2022-11-12 04:00] VITALS: BP 118/69
[2022-11-12] MEDS: MIDODRINE HCL 5MG TABLET PO SCH ×3 (05:39→21:50)
[2022-11-12] MEDS: BLOOD SUGAR DIAGNOSTIC STRIP TEST SCH ×4 (05:39→21:40)
[2022-11-12] MEDS: LACTULOSE 20G/30ML UDC PO SCH ×4 (05:39→21:50)
[2022-11-12] MEDS: HYDROCODONE/ACETAMINOPHEN 5/325MG TABLET PO PRN ×2 (06:09→14:12)
[2022-11-12 08:00] VITALS: BP 132/75
[2022-11-12] MEDS: INSULIN LISPRO 100 UNITS/ML SUBCUT SCH ×4 (08:10→21:00)
[2022-11-12] MEDS: PANTOPRAZOLE SODIUM 40 MG/VIAL IV SCH (09:42)
[2022-11-12] MEDS: ENOXAPARIN 40MG/0.4ML SYR SUBCUT SCH (09:42)
[2022-11-12] MEDS: DULOXETINE HCL 60MG DR CAPSULE PO SCH ×2 (09:42→18:20)
[2022-11-12] MEDS: LAMOTRIGINE 25MG TABLET PO SCH ×2 (09:42→21:38)
[2022-11-12] MEDS: SODIUM HYPOCHLORITE 0.125% 473ML SOLUTION TOP SCH (09:43)
[2022-11-12] MEDS: MENTHOL/LANOLIN/CALAMINE/ZN OX OINT 71GM TOP SCH ×2 (09:44→21:44)
[2022-11-12 12:15] VITALS: BP 135/76
[2022-11-12] MEDS: ONDANSETRON HCL 4MG/2ML INJ IV PRN (12:37)
[2022-11-12 16:07] VITALS: BP 123/74
[2022-11-12 20:00] VITALS: BP 135/75
[2022-11-12] MEDS: TRAZODONE HCL 50MG TABLET PO SCH (21:40)
[2022-11-13] VITALS: BP 128/78
[2022-11-13] MEDS: IPRATROPIUM BROMIDE (0.02%) 0.5MG/2.5ML NEB HHN SCH ×3 (01:06→12:55)
[2022-11-13] MEDS: ALBUTEROL (0.083%) 2.5MG/3ML NEB HHN SCH ×3 (01:07→12:55)
[2022-11-13 04:00] VITALS: BP 123/76
[2022-11-13] MEDS: SODIUM CHLORIDE 0.9% 1,000 ML IV SCH ×2 (04:31→17:44)
[2022-11-13] MEDS: MIDODRINE HCL 5MG TABLET PO SCH ×3 (06:00→21:34)
[2022-11-13] MEDS: LACTULOSE 20G/30ML UDC PO SCH ×3 (06:39→21:39)
[2022-11-13] MEDS: BLOOD SUGAR DIAGNOSTIC STRIP TEST SCH ×4 (06:40→21:41)
[2022-11-13] MEDS: INSULIN LISPRO 100 UNITS/ML SUBCUT SCH ×4 (07:18→21:00)
[2022-11-13 08:00] VITALS: BP 116/70
[2022-11-13] MEDS: DULOXETINE HCL 60MG DR CAPSULE PO SCH ×2 (10:16→17:44)
[2022-11-13] MEDS: LAMOTRIGINE 25MG TABLET PO SCH ×2 (10:16→21:33)
[2022-11-13] MEDS: ENOXAPARIN 40MG/0.4ML SYR SUBCUT SCH (10:16)
[2022-11-13] MEDS: PANTOPRAZOLE SODIUM 40 MG/VIAL IV SCH (10:16)
[2022-11-13] MEDS: MENTHOL/LANOLIN/CALAMINE/ZN OX OINT 71GM TOP SCH ×2 (10:17→21:42)
[2022-11-13] MEDS: SODIUM HYPOCHLORITE 0.125% 473ML SOLUTION TOP SCH (10:17)
[2022-11-13 12:00] VITALS: BP 132/81
[2022-11-13] MEDS: HYDROCODONE/ACETAMINOPHEN 5/325MG TABLET PO PRN (13:01)
[2022-11-13 16:00] VITALS: BP_SYST 119; BP_SYST 132; BP_DIAS 64; BP_DIAS 80
[2022-11-13 20:00] VITALS: BP 132/80
[2022-11-13] MEDS: TRAZODONE HCL 50MG TABLET PO SCH (21:33)
[2022-11-13] MEDS: ACETAMINOPHEN 325MG TABLET PO PRN (21:35)
[2022-11-14] VITALS: BP 131/76
[2022-11-14] MEDS: IPRATROPIUM BROMIDE (0.02%) 0.5MG/2.5ML NEB HHN SCH ×3 (01:52→15:26)
[2022-11-14] MEDS: ALBUTEROL (0.083%) 2.5MG/3ML NEB HHN SCH ×3 (01:52→15:26)
[2022-11-14 04:00] VITALS: BP 127/72
[2022-11-14] MEDS: SODIUM CHLORIDE 0.9% 1,000 ML IV SCH ×2 (04:43→17:15)
[2022-11-14] MEDS: LACTULOSE 20G/30ML UDC PO SCH ×3 (06:00→22:00)
[2022-11-14] MEDS: BLOOD SUGAR DIAGNOSTIC STRIP TEST SCH ×4 (06:07→21:42)
[2022-11-14] MEDS: MIDODRINE HCL 5MG TABLET PO SCH ×3 (06:07→22:00)
[2022-11-14] MEDS: INSULIN LISPRO 100 UNITS/ML SUBCUT SCH ×4 (07:26→21:00)
[2022-11-14] MEDS: PANTOPRAZOLE SODIUM 40 MG/VIAL IV SCH (09:26)
[2022-11-14] MEDS: LAMOTRIGINE 25MG TABLET PO SCH ×2 (09:26→21:00)
[2022-11-14] MEDS: ENOXAPARIN 40MG/0.4ML SYR SUBCUT SCH (09:27)
[2022-11-14] MEDS: DULOXETINE HCL 60MG DR CAPSULE PO SCH ×2 (09:27→17:14)
[2022-11-14] MEDS: SODIUM HYPOCHLORITE 0.125% 473ML SOLUTION TOP SCH (09:27)
[2022-11-14] MEDS: MENTHOL/LANOLIN/CALAMINE/ZN OX OINT 71GM TOP SCH ×2 (09:28→22:27)
[2022-11-14 12:00] VITALS: BP 123/74
[2022-11-14 16:00] VITALS: BP 129/77
[2022-11-14 18:00] VITALS: BP 130/77
[2022-11-14] MEDS: TRAZODONE HCL 50MG TABLET PO SCH (21:00)
[2022-11-15] VITALS: BP 130/75
[2022-11-15] MEDS: IPRATROPIUM BROMIDE (0.02%) 0.5MG/2.5ML NEB HHN SCH ×3 (00:44→16:14)
[2022-11-15] MEDS: ALBUTEROL (0.083%) 2.5MG/3ML NEB HHN SCH ×3 (00:44→16:13)
[2022-11-15] MEDS: SODIUM CHLORIDE 0.9% 1,000 ML IV SCH ×2 (05:22→18:02)
[2022-11-15] MEDS: MIDODRINE HCL 5MG TABLET PO SCH ×4 (06:00→22:00)
[2022-11-15] MEDS: LACTULOSE 20G/30ML UDC PO SCH ×4 (06:00→22:00)
[2022-11-15] MEDS: BLOOD SUGAR DIAGNOSTIC STRIP TEST SCH ×4 (06:35→21:00)
[2022-11-15] MEDS: INSULIN LISPRO 100 UNITS/ML SUBCUT SCH ×4 (06:59→21:00)
[2022-11-15 08:00] VITALS: BP 126/75
[2022-11-15] MEDS: LAMOTRIGINE 25MG TABLET PO SCH ×2 (08:41→21:00)
[2022-11-15] MEDS: ENOXAPARIN 40MG/0.4ML SYR SUBCUT SCH (08:41)
[2022-11-15] MEDS: DULOXETINE HCL 60MG DR CAPSULE PO SCH ×2 (08:41→18:01)
[2022-11-15] MEDS: PANTOPRAZOLE SODIUM 40 MG/VIAL IV SCH (08:41)
[2022-11-15] MEDS: MENTHOL/LANOLIN/CALAMINE/ZN OX OINT 71GM TOP SCH ×2 (08:42→21:00)
[2022-11-15] MEDS: SODIUM HYPOCHLORITE 0.125% 473ML SOLUTION TOP SCH (08:42)
[2022-11-15 11:17] LABS: BG BASE EXCESS 1.6 mmol/L (-2.0-2.0); BG CARBOXYHEMOGLOBIN 0.2 % (0.5-1.5); BG DEOXYHEMOGLOBIN 1.8 % (0.0-5.0); BG FRACTION INSPIRED OXYGEN 30; BG HCO3 ACT 25.7 mmol/L (22.0-26.0); BG METHEMOGLOBIN 0.1 % (0.0-1.5); BG OXYGEN SATURATION 98.2 % (92.0-98.5); BG OXYHEMOGLOBIN 97.9 % (94.0-97.0); BG PCO2 38.2 mmHg (35.0-45.0); BG PH 7.445 (7.350-7.450); BG PO2 106.1 mmHg (75.0-100.0); BG SAMPLE SITE LEFT RADIAL; BG TOTAL HEMOGLOBIN 9.4 g/dL (12.0-18.0); BG VENT MODE NASAL CANNULA
[2022-11-15 12:00] VITALS: BP 123/64
[2022-11-15 15:32] LABS: BASOPHILS % 0.5 % (0.0-2.0); EOSINOPHILS % 1.5 % (0.0-5.0); HEMATOCRIT. 30.6 % (42.0-52.0); HEMOGLOBIN. 9.6 g/dL (14.0-18.0); LYMPHOCYTES % 23.3 % (20.0-50.0); MEAN CORPUSCULAR HEMOGLOBIN 25.3 pg (28.0-32.0); MEAN CORPUSCULAR VOLUME 80.3 fL (80.0-94.0); MEAN PLATELET VOLUME 7.3 fl (7.4-10.4); MONOCYTES % 9.8 % (2.0-8.0); NEUTROPHILS % 64.9 % (40.0-76.0); PLATELET 218 x1000/uL (130-400); RED BLOOD CELL COUNT 3.81 mill/uL (4.7-6.1); RED CELL DISTRIBUTION WIDTH 24.6 % (11.6-14.6)
[2022-11-15 15:43] LABS: CHLORIDE 112 mEq/L (98-107)
[2022-11-15] MEDS ORDERED: KCL 20MEQ/100ML PREMIX 100 ML IV NR (18:30)
[2022-11-15] MEDS: TRAZODONE HCL 50MG TABLET PO SCH (21:00)
[2022-11-16] VITALS: BP 135/85
[2022-11-16] MEDS: IPRATROPIUM BROMIDE (0.02%) 0.5MG/2.5ML NEB HHN SCH ×2 (00:50→07:45)
[2022-11-16] MEDS: ALBUTEROL (0.083%) 2.5MG/3ML NEB HHN SCH ×2 (00:51→07:45)
[2022-11-16] MEDS: LACTULOSE 20G/30ML UDC PO SCH ×3 (06:00→21:27)
[2022-11-16] MEDS: MIDODRINE HCL 5MG TABLET PO SCH ×3 (06:00→21:12)
[2022-11-16] MEDS: BLOOD SUGAR DIAGNOSTIC STRIP TEST SCH ×4 (06:45→21:12)
[2022-11-16] MEDS: SODIUM CHLORIDE 0.9% 1,000 ML IV SCH (06:59)
[2022-11-16] MEDS: INSULIN LISPRO 100 UNITS/ML SUBCUT SCH ×4 (07:08→21:00)
[2022-11-16 08:00] VITALS: BP 137/79
[2022-11-16] MEDS: LAMOTRIGINE 25MG TABLET PO SCH ×2 (08:47→21:11)
[2022-11-16] MEDS: DULOXETINE HCL 60MG DR CAPSULE PO SCH ×2 (08:47→16:52)
[2022-11-16] MEDS: PANTOPRAZOLE SODIUM 40 MG/VIAL IV SCH (08:47)
[2022-11-16] MEDS: ENOXAPARIN 40MG/0.4ML SYR SUBCUT SCH (08:48)
[2022-11-16] MEDS: SODIUM HYPOCHLORITE 0.125% 473ML SOLUTION TOP SCH (08:49)
[2022-11-16] MEDS: MENTHOL/LANOLIN/CALAMINE/ZN OX OINT 71GM TOP SCH ×2 (08:49→21:13)
[2022-11-16 12:00] VITALS: BP 119/69
[2022-11-16 16:00] VITALS: BP 128/76
[2022-11-16 20:00] VITALS: BP 120/67
[2022-11-16] MEDS: TRAZODONE HCL 50MG TABLET PO SCH (21:00)
[2022-11-17 04:00] VITALS: BP 126/71
[2022-11-17] MEDS: LACTULOSE 20G/30ML UDC PO SCH ×3 (06:00→22:00)
[2022-11-17] MEDS: BLOOD SUGAR DIAGNOSTIC STRIP TEST SCH ×4 (06:45→21:00)
[2022-11-17] MEDS: INSULIN LISPRO 100 UNITS/ML SUBCUT SCH ×4 (07:15→21:00)
[2022-11-17] MEDS: SODIUM CHLORIDE 0.9% 1,000 ML IV SCH ×2 (07:59→20:29)
[2022-11-17] MEDS: PANTOPRAZOLE SODIUM 40 MG/VIAL IV SCH (08:56)
[2022-11-17] MEDS: SODIUM HYPOCHLORITE 0.125% 473ML SOLUTION TOP SCH (09:00)
[2022-11-17] MEDS: MENTHOL/LANOLIN/CALAMINE/ZN OX OINT 71GM TOP SCH ×2 (09:00→21:00)
[2022-11-17] MEDS: DULOXETINE HCL 60MG DR CAPSULE PO SCH ×2 (09:41→16:49)
[2022-11-17] MEDS: ENOXAPARIN 40MG/0.4ML SYR SUBCUT SCH (09:44)
[2022-11-17] MEDS: LAMOTRIGINE 25MG TABLET PO SCH ×2 (09:46→20:25)
[2022-11-17] MEDS: MIDODRINE HCL 5MG TABLET PO SCH ×2 (13:25→20:27)
[2022-11-17] MEDS: ACETAMINOPHEN 325MG TABLET PO PRN ×2 (16:42→20:24)
[2022-11-17] MEDS: TRAZODONE HCL 50MG TABLET PO SCH (20:25)
[2022-11-17 21:53] VITALS: BP 106/61
[2022-11-18] MEDS: LACTULOSE 20G/30ML UDC PO SCH ×3 (06:00→22:00)
[2022-11-18] MEDS: BLOOD SUGAR DIAGNOSTIC STRIP TEST SCH ×3 (06:52→21:23)
[2022-11-18] MEDS: INSULIN LISPRO 100 UNITS/ML SUBCUT SCH ×3 (06:52→21:00)
[2022-11-18] MEDS: ACETAMINOPHEN 325MG TABLET PO PRN ×3 (06:53→21:08)
[2022-11-18] MEDS: MIDODRINE HCL 5MG TABLET PO SCH ×3 (06:57→21:11)
[2022-11-18 08:00] VITALS: BP 135/60
[2022-11-18] MEDS: PANTOPRAZOLE SODIUM 40 MG/VIAL IV SCH (09:00)
[2022-11-18] MEDS: DULOXETINE HCL 60MG DR CAPSULE PO SCH ×2 (09:00→16:35)
[2022-11-18] MEDS: IPRATROPIUM BROMIDE (0.02%) 0.5MG/2.5ML NEB HHN SCH ×2 (10:16→16:34)
[2022-11-18] MEDS: ALBUTEROL (0.083%) 2.5MG/3ML NEB HHN SCH ×2 (10:17→16:34)
[2022-11-18] MEDS: LAMOTRIGINE 25MG TABLET PO SCH ×2 (10:47→21:08)
[2022-11-18] MEDS: ENOXAPARIN 40MG/0.4ML SYR SUBCUT SCH (10:50)
[2022-11-18] MEDS: MENTHOL/LANOLIN/CALAMINE/ZN OX OINT 71GM TOP SCH ×2 (10:52→21:09)
[2022-11-18] MEDS: SODIUM CHLORIDE 0.9% 1,000 ML IV SCH ×2 (10:53→21:12)
[2022-11-18] MEDS: SODIUM HYPOCHLORITE 0.125% 473ML SOLUTION TOP SCH (11:00)
[2022-11-18 12:00] VITALS: BP 129/68
[2022-11-18 16:00] VITALS: BP 118/66
[2022-11-18 20:00] VITALS: BP 127/76
[2022-11-18] MEDS: TRAZODONE HCL 50MG TABLET PO SCH (21:09)
[2022-11-19] VITALS: BP 112/64
[2022-11-19] MEDS: IPRATROPIUM BROMIDE (0.02%) 0.5MG/2.5ML NEB HHN SCH ×3 (01:01→15:57)
[2022-11-19] MEDS: ALBUTEROL (0.083%) 2.5MG/3ML NEB HHN SCH ×3 (01:01→15:57)
[2022-11-19 04:00] VITALS: BP_SYST 112; BP_SYST 127; BP_DIAS 64; BP_DIAS 70
[2022-11-19] MEDS: ACETAMINOPHEN 325MG TABLET PO PRN ×2 (05:03→12:42)
[2022-11-19] MEDS: MIDODRINE HCL 5MG TABLET PO SCH ×3 (05:06→21:36)
[2022-11-19] MEDS: LACTULOSE 20G/30ML UDC PO SCH ×4 (06:00→21:47)
[2022-11-19] MEDS: BLOOD SUGAR DIAGNOSTIC STRIP TEST SCH ×4 (07:15→21:37)
[2022-11-19] MEDS: INSULIN LISPRO 100 UNITS/ML SUBCUT SCH ×4 (07:15→21:00)
[2022-11-19 08:00] VITALS: BP 134/73
[2022-11-19] MEDS: DULOXETINE HCL 60MG DR CAPSULE PO SCH ×2 (09:33→17:56)
[2022-11-19] MEDS: ENOXAPARIN 40MG/0.4ML SYR SUBCUT SCH (09:33)
[2022-11-19] MEDS: LAMOTRIGINE 25MG TABLET PO SCH ×2 (09:33→21:36)
[2022-11-19] MEDS: SODIUM CHLORIDE 0.9% 1,000 ML IV SCH (09:46)
[2022-11-19] MEDS: MENTHOL/LANOLIN/CALAMINE/ZN OX OINT 71GM TOP SCH ×2 (09:48→21:45)
[2022-11-19] MEDS: SODIUM HYPOCHLORITE 0.125% 473ML SOLUTION TOP SCH (09:48)
[2022-11-19 12:00] VITALS: BP 110/65
[2022-11-19] MEDS: PANTOPRAZOLE SODIUM 40 MG/VIAL IV SCH (13:08)
[2022-11-19] MEDS ORDERED: NALOXONE HCL 0.4MG/ML VIAL IV PRN (13:15)
[2022-11-19] MEDS: LIDOCAINE 5% PATCH TOP SCH (14:56)
[2022-11-19 16:00] VITALS: BP 121/60
[2022-11-19] MEDS: HYDROCODONE/ACETAMINOPHEN 5/325MG TABLET PO PRN (17:56)
[2022-11-19 21:00] VITALS: BP 138/70
[2022-11-19] MEDS: TRAZODONE HCL 50MG TABLET PO SCH (21:35)
[2022-11-20] VITALS: BP 137/69
[2022-11-20] MEDS: IPRATROPIUM BROMIDE (0.02%) 0.5MG/2.5ML NEB HHN SCH ×4 (02:05→23:38)
[2022-11-20] MEDS: ALBUTEROL (0.083%) 2.5MG/3ML NEB HHN SCH ×4 (02:06→23:39)
[2022-11-20 04:00] VITALS: BP 140/80
[2022-11-20] MEDS: MIDODRINE HCL 5MG TABLET PO SCH ×3 (06:00→21:32)
[2022-11-20] MEDS: LACTULOSE 20G/30ML UDC PO SCH ×3 (06:00→22:00)
[2022-11-20] MEDS: HYDROCODONE/ACETAMINOPHEN 5/325MG TABLET PO PRN ×2 (06:51→17:28)
[2022-11-20] MEDS: BLOOD SUGAR DIAGNOSTIC STRIP TEST SCH ×4 (06:52→20:08)
[2022-11-20] MEDS: INSULIN LISPRO 100 UNITS/ML SUBCUT SCH ×4 (06:53→21:00)
[2022-11-20 08:00] VITALS: BP 124/69
[2022-11-20] MEDS: LAMOTRIGINE 25MG TABLET PO SCH ×2 (09:16→20:08)
[2022-11-20] MEDS: LIDOCAINE 5% PATCH TOP SCH (09:17)
[2022-11-20] MEDS: DULOXETINE HCL 60MG DR CAPSULE PO SCH ×2 (09:17→17:28)
[2022-11-20] MEDS: ENOXAPARIN 40MG/0.4ML SYR SUBCUT SCH (09:17)
[2022-11-20] MEDS: SODIUM HYPOCHLORITE 0.125% 473ML SOLUTION TOP SCH (09:19)
[2022-11-20] MEDS: MENTHOL/LANOLIN/CALAMINE/ZN OX OINT 71GM TOP SCH ×2 (09:21→21:26)
[2022-11-20] MEDS: PANTOPRAZOLE SODIUM 40 MG/VIAL IV SCH (09:47)
[2022-11-20 12:00] VITALS: BP 86/42
[2022-11-20 16:00] VITALS: BP 116/61
[2022-11-20 20:00] VITALS: BP 110/62
[2022-11-20] MEDS: TRAZODONE HCL 50MG TABLET PO SCH (20:08)
[2022-11-20] MEDS: ACETAMINOPHEN 325MG TABLET PO PRN (20:08)
[2022-11-21] MEDS: HYDROCODONE/ACETAMINOPHEN 5/325MG TABLET PO PRN (01:23)
[2022-11-21] MEDS: LACTULOSE 20G/30ML UDC PO SCH ×4 (05:46→21:35)
[2022-11-21] MEDS: MIDODRINE HCL 5MG TABLET PO SCH ×5 (05:46→21:40)
[2022-11-21] MEDS: ACETAMINOPHEN 325MG TABLET PO PRN (05:50)
[2022-11-21] MEDS: BLOOD SUGAR DIAGNOSTIC STRIP TEST SCH ×4 (05:50→21:38)
[2022-11-21] MEDS: INSULIN LISPRO 100 UNITS/ML SUBCUT SCH ×4 (05:50→21:00)
[2022-11-21 08:00] VITALS: BP 123/66
[2022-11-21] MEDS: PANTOPRAZOLE SODIUM 40 MG/VIAL IV SCH (08:41)
[2022-11-21] MEDS: LAMOTRIGINE 25MG TABLET PO SCH ×2 (08:41→21:24)
[2022-11-21] MEDS: DULOXETINE HCL 60MG DR CAPSULE PO SCH ×2 (08:41→17:34)
[2022-11-21] MEDS: ENOXAPARIN 40MG/0.4ML SYR SUBCUT SCH (08:42)
[2022-11-21] MEDS: SODIUM HYPOCHLORITE 0.125% 473ML SOLUTION TOP SCH (08:42)
[2022-11-21] MEDS: LIDOCAINE 5% PATCH TOP SCH (08:42)
[2022-11-21] MEDS: MENTHOL/LANOLIN/CALAMINE/ZN OX OINT 71GM TOP SCH ×2 (09:00→21:37)
[2022-11-21] MEDS: ALBUTEROL (0.083%) 2.5MG/3ML NEB HHN SCH ×2 (10:45→17:56)
[2022-11-21] MEDS: IPRATROPIUM BROMIDE (0.02%) 0.5MG/2.5ML NEB HHN SCH ×2 (10:45→17:56)
[2022-11-21 12:00] VITALS: BP 110/60
[2022-11-21 16:00] VITALS: BP 124/69
[2022-11-21 20:00] VITALS: BP 130/79
[2022-11-21] MEDS: TRAZODONE HCL 50MG TABLET PO SCH (21:23)
[2022-11-22] MEDS: IPRATROPIUM BROMIDE (0.02%) 0.5MG/2.5ML NEB HHN SCH ×4 (00:10→23:48)
[2022-11-22] MEDS: ALBUTEROL (0.083%) 2.5MG/3ML NEB HHN SCH ×4 (00:10→23:49)
[2022-11-22 00:26] VITALS: BP 122/76
[2022-11-22] MEDS: HYDROCODONE/ACETAMINOPHEN 5/325MG TABLET PO PRN ×3 (01:14→22:10)
[2022-11-22 04:00] VITALS: BP 122/75
[2022-11-22] MEDS: LACTULOSE 20G/30ML UDC PO SCH ×3 (06:00→22:08)
[2022-11-22] MEDS: MIDODRINE HCL 5MG TABLET PO SCH ×3 (06:00→22:08)
[2022-11-22] MEDS: BLOOD SUGAR DIAGNOSTIC STRIP TEST SCH ×4 (06:06→21:00)
[2022-11-22] MEDS: INSULIN LISPRO 100 UNITS/ML SUBCUT SCH ×4 (06:06→22:13)
[2022-11-22 08:00] VITALS: BP 133/77
[2022-11-22] MEDS: PANTOPRAZOLE SODIUM 40 MG/VIAL IV SCH (08:58)
[2022-11-22] MEDS: LAMOTRIGINE 25MG TABLET PO SCH ×2 (08:58→22:09)
[2022-11-22] MEDS: LIDOCAINE 5% PATCH TOP SCH (08:58)
[2022-11-22] MEDS: ENOXAPARIN 40MG/0.4ML SYR SUBCUT SCH (08:59)
[2022-11-22] MEDS: DULOXETINE HCL 60MG DR CAPSULE PO SCH ×2 (08:59→17:58)
[2022-11-22] MEDS: SODIUM HYPOCHLORITE 0.125% 473ML SOLUTION TOP SCH (09:00)
[2022-11-22] MEDS: MENTHOL/LANOLIN/CALAMINE/ZN OX OINT 71GM TOP SCH ×2 (09:10→21:00)
[2022-11-22 11:00] VITALS: BP 128/73
[2022-11-22 16:55] VITALS: BP 145/82
[2022-11-22 20:00] VITALS: BP 127/73
[2022-11-22] MEDS: TRAZODONE HCL 50MG TABLET PO SCH (22:09)
[2022-11-22] MEDS: ONDANSETRON HCL 4MG/2ML INJ IV PRN (22:10)
[2022-11-23] VITALS: BP 107/61
[2022-11-23 04:00] VITALS: BP 116/70
[2022-11-23] MEDS: LACTULOSE 20G/30ML UDC PO SCH ×3 (06:00→20:20)
[2022-11-23] MEDS: MIDODRINE HCL 5MG TABLET PO SCH ×3 (06:00→20:20)
[2022-11-23] MEDS: BLOOD SUGAR DIAGNOSTIC STRIP TEST SCH ×4 (06:45→21:00)
[2022-11-23] MEDS: INSULIN LISPRO 100 UNITS/ML SUBCUT SCH ×4 (07:15→21:00)
[2022-11-23 08:00] VITALS: BP 136/81
[2022-11-23] MEDS: IPRATROPIUM BROMIDE (0.02%) 0.5MG/2.5ML NEB HHN SCH ×2 (08:14→16:08)
[2022-11-23] MEDS: ALBUTEROL (0.083%) 2.5MG/3ML NEB HHN SCH ×2 (08:17→16:08)
[2022-11-23 09:08] LABS: BASOPHILS % 0.3 % (0.0-2.0); EOSINOPHILS % 0.5 % (0.0-5.0); HEMATOCRIT. 24.2 % (42.0-52.0); HEMOGLOBIN. 7.9 g/dL (14.0-18.0); LYMPHOCYTES % 12.5 % (20.0-50.0); MEAN CORPUSCULAR HEMOGLOBIN 25.1 pg (28.0-32.0); MEAN CORPUSCULAR VOLUME 76.8 fL (80.0-94.0); MONOCYTES % 7.6 % (2.0-8.0); NEUTROPHILS % 79.1 % (40.0-76.0); PLATELET 329 x1000/uL (130-400); RED BLOOD CELL COUNT 3.15 mill/uL (4.7-6.1); RED CELL DISTRIBUTION WIDTH 23.6 % (11.6-14.6)
[2022-11-23 09:28] LABS: CHLORIDE 104 mEq/L (98-107)
[2022-11-23] MEDS ORDERED: POTASSIUM CHLORIDE 20MEQ TABLET SR PO SCH (10:00)
[2022-11-23 10:14] LABS: PHOSPHORUS 2.4 mg/dL (2.5-4.9)
[2022-11-23] MEDS: LIDOCAINE 5% PATCH TOP SCH (10:55)
[2022-11-23] MEDS: ENOXAPARIN 40MG/0.4ML SYR SUBCUT SCH (10:55)
[2022-11-23] MEDS: DULOXETINE HCL 60MG DR CAPSULE PO SCH ×2 (10:56→16:43)
[2022-11-23] MEDS: LAMOTRIGINE 25MG TABLET PO SCH ×2 (10:56→20:19)
[2022-11-23] MEDS: PANTOPRAZOLE SODIUM 40 MG/VIAL IV SCH (10:56)
[2022-11-23] MEDS: MENTHOL/LANOLIN/CALAMINE/ZN OX OINT 71GM TOP SCH ×2 (10:58→21:00)
[2022-11-23] MEDS: SODIUM HYPOCHLORITE 0.125% 473ML SOLUTION TOP SCH (10:59)
[2022-11-23 12:00] VITALS: BP 126/73
[2022-11-23] MEDS ORDERED: POTASSIUM PHOS,M-BASIC-D-BASIC 30 MMOL in DEXT 5% WATER 500 ML IV SCH (15:00)
[2022-11-23] MEDS ORDERED: MAGNESIUM 4 G PREMIX 100 ML IV SCH (15:00)
[2022-11-23 16:00] VITALS: BP 134/62
[2022-11-23 20:00] VITALS: BP 104/60
[2022-11-23] MEDS: TRAZODONE HCL 50MG TABLET PO SCH (20:19)
[2022-11-23] MEDS: HYDROCODONE/ACETAMINOPHEN 5/325MG TABLET PO PRN (20:23)
[2022-11-24] VITALS: BP 106/63
[2022-11-24] MEDS: ALBUTEROL (0.083%) 2.5MG/3ML NEB HHN SCH ×2 (00:34→09:40)
[2022-11-24] MEDS: IPRATROPIUM BROMIDE (0.02%) 0.5MG/2.5ML NEB HHN SCH ×2 (00:43→17:21)
[2022-11-24 04:00] VITALS: BP 120/64
[2022-11-24] MEDS: LACTULOSE 20G/30ML UDC PO SCH ×2 (06:00→14:00)
[2022-11-24 06:36] LABS: BASOPHILS % 0.2 % (0.0-2.0); EOSINOPHILS % 0.6 % (0.0-5.0); HEMATOCRIT. 23.7 % (42.0-52.0); HEMOGLOBIN. 7.6 g/dL (14.0-18.0); LYMPHOCYTES % 14.6 % (20.0-50.0); MEAN CORPUSCULAR HEMOGLOBIN 24.8 pg (28.0-32.0); MEAN CORPUSCULAR VOLUME 76.9 fL (80.0-94.0); MEAN PLATELET VOLUME 7.7 fl (7.4-10.4); MONOCYTES % 7.5 % (2.0-8.0); NEUTROPHILS % 77.1 % (40.0-76.0); PLATELET 321 x1000/uL (130-400); RED BLOOD CELL COUNT 3.07 mill/uL (4.7-6.1); RED CELL DISTRIBUTION WIDTH 23.3 % (11.6-14.6)
[2022-11-24] MEDS: BLOOD SUGAR DIAGNOSTIC STRIP TEST SCH ×3 (06:59→21:48)
[2022-11-24] MEDS: MIDODRINE HCL 5MG TABLET PO SCH ×3 (06:59→21:33)
[2022-11-24] MEDS: INSULIN LISPRO 100 UNITS/ML SUBCUT SCH ×3 (06:59→21:00)
[2022-11-24 07:27] LABS: CHLORIDE 105 mEq/L (98-107)
[2022-11-24 08:16] VITALS: BP 120/68
[2022-11-24] MEDS: PANTOPRAZOLE SODIUM 40 MG/VIAL IV SCH (09:12)
[2022-11-24] MEDS: ENOXAPARIN 40MG/0.4ML SYR SUBCUT SCH (09:14)
[2022-11-24] MEDS: HYDROCODONE/ACETAMINOPHEN 5/325MG TABLET PO PRN ×2 (09:16→19:47)
[2022-11-24] MEDS: MENTHOL/LANOLIN/CALAMINE/ZN OX OINT 71GM TOP SCH ×2 (09:17→21:48)
[2022-11-24] MEDS: LIDOCAINE 5% PATCH TOP SCH (09:18)
[2022-11-24] MEDS: SODIUM HYPOCHLORITE 0.125% 473ML SOLUTION TOP SCH (09:19)
[2022-11-24] MEDS: LAMOTRIGINE 25MG TABLET PO SCH ×2 (09:20→21:33)
[2022-11-24] MEDS: DULOXETINE HCL 60MG DR CAPSULE PO SCH ×2 (09:29→17:00)
[2022-11-24 12:00] VITALS: BP 112/67
[2022-11-24] MEDS ORDERED: POTASSIUM CHLORIDE 20MEQ TABLET SR PO NR (13:00)
[2022-11-24 15:12] VITALS: BP 114/67
[2022-11-24] MEDS: POTASSIUM CHLORIDE 20MEQ TABLET SR PO SCH (18:00)
[2022-11-24] MEDS ORDERED: DEXTROSE 50% WATER 50ML SYRINGE IV PRN (19:30)
[2022-11-24] MEDS ORDERED: CLONIDINE 0.1MG TABLET PO PRN (19:30)
[2022-11-24] MEDS ORDERED: ACETAMINOPHEN 650MG/20.3ML UDC PO PRN (19:30)
[2022-11-24] MEDS: ONDANSETRON HCL 4MG/2ML INJ IV PRN (19:55)
[2022-11-24 20:00] VITALS: BP 119/69
[2022-11-24] MEDS: TRAZODONE HCL 50MG TABLET PO SCH (21:33)
[2022-11-25] VITALS: BP 120/66
[2022-11-25] MEDS: ALBUTEROL (0.083%) 2.5MG/3ML NEB HHN SCH ×4 (00:29→23:57)
[2022-11-25] MEDS: IPRATROPIUM BROMIDE (0.02%) 0.5MG/2.5ML NEB HHN SCH ×4 (00:30→23:53)
[2022-11-25] MEDS: HYDROCODONE/ACETAMINOPHEN 5/325MG TABLET PO PRN ×2 (00:40→08:34)
[2022-11-25 04:00] VITALS: BP 127/74
[2022-11-25] MEDS: MIDODRINE HCL 5MG TABLET PO SCH ×3 (05:36→21:59)
[2022-11-25] MEDS: BLOOD SUGAR DIAGNOSTIC STRIP TEST SCH ×4 (05:36→21:52)
[2022-11-25] MEDS: INSULIN LISPRO 100 UNITS/ML SUBCUT SCH ×4 (05:43→21:00)
[2022-11-25 08:00] VITALS: BP 126/75
[2022-11-25] MEDS: PANTOPRAZOLE SODIUM 40 MG/VIAL IV SCH (09:05)
[2022-11-25] MEDS: LIDOCAINE 5% PATCH TOP SCH (09:06)
[2022-11-25] MEDS: ENOXAPARIN 40MG/0.4ML SYR SUBCUT SCH (09:06)
[2022-11-25] MEDS: DULOXETINE HCL 60MG DR CAPSULE PO SCH ×2 (09:06→17:39)
[2022-11-25] MEDS: DOCUSATE SODIUM 100MG CAPSULE PO SCH ×2 (09:07→17:39)
[2022-11-25] MEDS: POTASSIUM CHLORIDE 20MEQ TABLET SR PO SCH (09:07)
[2022-11-25] MEDS: MENTHOL/LANOLIN/CALAMINE/ZN OX OINT 71GM TOP SCH ×2 (09:20→21:00)
[2022-11-25] MEDS: SODIUM HYPOCHLORITE 0.125% 473ML SOLUTION TOP SCH (09:21)
[2022-11-25 12:00] VITALS: BP 121/70
[2022-11-25 16:00] VITALS: BP 115/70
[2022-11-25] MEDS ORDERED: POTASSIUM PHOS,M-BASIC-D-BASIC 20 MMOL in DEXT 5% WATER 243.3333 ML IV NR (18:00)
[2022-11-25 20:00] VITALS: BP 124/79
[2022-11-25] MEDS: TRAZODONE HCL 50MG TABLET PO SCH (21:59)
[2022-11-26] VITALS: BP 120/72
[2022-11-26] MEDS: MIDODRINE HCL 5MG TABLET PO SCH ×3 (05:34→21:47)
[2022-11-26] MEDS: BLOOD SUGAR DIAGNOSTIC STRIP TEST SCH ×4 (06:42→21:48)
[2022-11-26] MEDS: INSULIN LISPRO 100 UNITS/ML SUBCUT SCH ×4 (06:43→21:00)
[2022-11-26] MEDS: DULOXETINE HCL 60MG DR CAPSULE PO SCH ×2 (08:55→17:26)
[2022-11-26] MEDS: POTASSIUM CHLORIDE 20MEQ TABLET SR PO SCH (08:55)
[2022-11-26] MEDS: ENOXAPARIN 40MG/0.4ML SYR SUBCUT SCH (08:57)
[2022-11-26] MEDS: DOCUSATE SODIUM 100MG CAPSULE PO SCH ×2 (08:57→17:26)
[2022-11-26] MEDS: PANTOPRAZOLE SODIUM 40 MG/VIAL IV SCH (08:57)
[2022-11-26] MEDS: HYDROCODONE/ACETAMINOPHEN 5/325MG TABLET PO PRN ×3 (08:57→20:33)
[2022-11-26] MEDS: LIDOCAINE 5% PATCH TOP SCH (08:58)
[2022-11-26] MEDS: SODIUM HYPOCHLORITE 0.125% 473ML SOLUTION TOP SCH (09:00)
[2022-11-26] MEDS: IPRATROPIUM BROMIDE (0.02%) 0.5MG/2.5ML NEB HHN SCH ×2 (09:37→16:07)
[2022-11-26] MEDS: ALBUTEROL (0.083%) 2.5MG/3ML NEB HHN SCH ×2 (09:37→16:07)
[2022-11-26] MEDS: TRAZODONE HCL 50MG TABLET PO SCH (20:32)
[2022-11-27] VITALS: BP 123/65
[2022-11-27 04:00] VITALS: BP 134/81
[2022-11-27] MEDS: MIDODRINE HCL 5MG TABLET PO SCH (06:00)
[2022-11-27] MEDS: HYDROCODONE/ACETAMINOPHEN 5/325MG TABLET PO PRN ×2 (06:02→20:37)
[2022-11-27] MEDS: INSULIN LISPRO 100 UNITS/ML SUBCUT SCH ×4 (06:05→20:45)
[2022-11-27] MEDS: ONDANSETRON HCL 4MG/2ML INJ IV PRN ×2 (06:05→19:57)
[2022-11-27] MEDS: BLOOD SUGAR DIAGNOSTIC STRIP TEST SCH ×4 (06:06→20:47)
[2022-11-27] MEDS: PANTOPRAZOLE SODIUM 40 MG/VIAL IV SCH (09:19)
[2022-11-27] MEDS: POTASSIUM CHLORIDE 20MEQ TABLET SR PO SCH (09:20)
[2022-11-27] MEDS: ENOXAPARIN 40MG/0.4ML SYR SUBCUT SCH (09:20)
[2022-11-27] MEDS: DOCUSATE SODIUM 100MG CAPSULE PO SCH ×2 (09:20→17:23)
[2022-11-27] MEDS: DULOXETINE HCL 60MG DR CAPSULE PO SCH ×2 (09:20→17:23)
[2022-11-27] MEDS: LIDOCAINE 5% PATCH TOP SCH (09:21)
[2022-11-27] MEDS: SODIUM HYPOCHLORITE 0.125% 473ML SOLUTION TOP SCH (09:22)
[2022-11-27 12:00] VITALS: BP 133/81
[2022-11-27 16:00] VITALS: BP 124/79
[2022-11-27] MEDS ORDERED: NALOXONE HCL 0.4MG/ML VIAL IV PRN (19:30)
[2022-11-27 20:00] VITALS: BP 121/79
[2022-11-27] MEDS: TRAZODONE HCL 50MG TABLET PO SCH (20:38)
[2022-11-28] VITALS: BP 119/77
[2022-11-28 04:00] VITALS: BP 105/66
[2022-11-28] MEDS: BLOOD SUGAR DIAGNOSTIC STRIP TEST SCH ×3 (06:14→16:49)
[2022-11-28] MEDS: INSULIN LISPRO 100 UNITS/ML SUBCUT SCH ×3 (06:15→16:49)
[2022-11-28] MEDS: HYDROCODONE/ACETAMINOPHEN 5/325MG TABLET PO PRN (06:19)
[2022-11-28 08:00] VITALS: BP 111/57
[2022-11-28] MEDS: POTASSIUM CHLORIDE 20MEQ TABLET SR PO SCH (08:29)
[2022-11-28] MEDS: PANTOPRAZOLE SODIUM 40 MG/VIAL IV SCH (08:29)
[2022-11-28] MEDS: ENOXAPARIN 40MG/0.4ML SYR SUBCUT SCH (08:30)
[2022-11-28] MEDS: SODIUM HYPOCHLORITE 0.125% 473ML SOLUTION TOP SCH (08:30)
[2022-11-28] MEDS: DOCUSATE SODIUM 100MG CAPSULE PO SCH ×2 (08:30→16:48)
[2022-11-28] MEDS: LIDOCAINE 5% PATCH TOP SCH (08:30)
[2022-11-28] MEDS: DULOXETINE HCL 60MG DR CAPSULE PO SCH ×2 (08:40→16:48)
[2022-11-28 12:00] VITALS: BP 110/68
[2022-11-28 16:00] VITALS: BP 92/67
[2022-11-28 20:00] VITALS: BP 95/62
== END 2022-11-28 20:30 | disposition home health service (06) | DRG 710 ==
LOC: ER 03:18 → CVICU 06:00 → EDBEDREQTM 06:02 → EDBEDREQ 06:02 → ENRESERV 12:21 → 5EST 11-03 23:52 → 7WST 11-05 22:19 → 5WST 11-14 17:35
PROVIDERS: ADMIT Internal Medicine; ATTEND Internal Medicine
PROC: 02HV33Z Insertion of Infusion Device into Superior Vena Cava, Percutaneous Approach (ICD-10-PCS; 2022-10-27)
PROC: B548ZZA Ultrasonography of Superior Vena Cava, Guidance (ICD-10-PCS; 2022-10-27)
PROC: 5A1945Z Respiratory Ventilation, 24-96 Consecutive Hours (ICD-10-PCS; 2022-10-27)
PROC: 0BH17EZ Insertion of Endotracheal Airway into Trachea, Via Natural or Artificial Opening (ICD-10-PCS; 2022-10-27)
PROC: 5A09357 Assistance with Respiratory Ventilation, Less than 24 Consecutive Hours, Continuous Positive Airway Pressure (ICD-10-PCS; 2022-10-29)
PROC: 30233N1 Transfusion of Nonautologous Red Blood Cells into Peripheral Vein, Percutaneous Approach (ICD-10-PCS; 2022-11-01)
PROC: 0LBW0ZZ Excision of Left Foot Tendon, Open Approach (ICD-10-PCS; 2022-11-04)
PROC: 0LBV0ZZ Excision of Right Foot Tendon, Open Approach (ICD-10-PCS; 2022-11-04)
PROC: 0LBW0ZZ Excision of Left Foot Tendon, Open Approach (ICD-10-PCS; 2022-11-07)
PROC: 0LBW0ZZ Excision of Left Foot Tendon, Open Approach (ICD-10-PCS; 2022-11-18)
PROC: 0LBN0ZZ Excision of Right Lower Leg Tendon, Open Approach (ICD-10-PCS; 2022-11-18)
PROC: 0JB70ZZ Excision of Back Subcutaneous Tissue and Fascia, Open Approach (ICD-10-PCS; 2022-11-19)
PROC: 0LBW0ZZ Excision of Left Foot Tendon, Open Approach (ICD-10-PCS; 2022-11-26)
PROC: 0LBN0ZZ Excision of Right Lower Leg Tendon, Open Approach (ICD-10-PCS; 2022-11-26)
PROC: 0KBN0ZZ Excision of Right Hip Muscle, Open Approach (ICD-10-PCS; principal; 2022-11-27)
PROC: 0JB70ZZ Excision of Back Subcutaneous Tissue and Fascia, Open Approach (ICD-10-PCS; 2022-11-27)
DX: A41.9 Sepsis, unspecified organism (principal); J96.01 Acute respiratory failure with hypoxia; R65.21 Severe sepsis with septic shock; J15.212 Pneumonia due to Methicillin resistant Staphylococcus aureus; L89.153 Pressure ulcer of sacral region, stage 3; L89.624 Pressure ulcer of left heel, stage 4; E44.0 Moderate protein-calorie malnutrition; L89.613 Pressure ulcer of right heel, stage 3; C79.51 Secondary malignant neoplasm of bone; E87.20 Acidosis, unspecified; D50.9 Iron deficiency anemia, unspecified; E11.9 Type 2 diabetes mellitus without complications; I11.0 Hypertensive heart disease with heart failure; I50.32 Chronic diastolic (congestive) heart failure; C61 Malignant neoplasm of prostate; N39.0 Urinary tract infection, site not specified; I82.503 Chronic embolism and thrombosis of unspecified deep veins of lower extremity, bilateral; E87.6 Hypokalemia; Z20.822 Contact with and (suspected) exposure to COVID-19; S91.301A Unspecified open wound, right foot, initial encounter; S91.302A Unspecified open wound, left foot, initial encounter; I25.10 Atherosclerotic heart disease of native coronary artery without angina pectoris; Z68.22 Body mass index [BMI] 22.0-22.9, adult; Z76.5 Malingerer [conscious simulation]; Z79.899 Other long term (current) drug therapy; Z78.1 Physical restraint status; Z79.4 Long term (current) use of insulin; Z87.440 Personal history of urinary (tract) infections; Z95.5 Presence of coronary angioplasty implant and graft; Z95.828 Presence of other vascular implants and grafts; Z51.5 Encounter for palliative care; X58.XXXA Exposure to other specified factors, initial encounter; Y93.89 Activity, other specified; Y92.89 Other specified places as the place of occurrence of the external cause; Y99.8 Other external cause status
CPT/HCPCS: 31500; 36415; 36600; 71045; 71275; 74177; 80048; 80053; 80202; 80320; 81003; 82040; 82140; 82375; 82607; 82728; 82746; 82805; 82962; 83036; 83540; 83550; 83605; 83735; 83880; 84100; 84132; 84134; 84145; 84484; 85025; 85027; 85044; 86850; 86900; 86920; 87070; 87077; 87106; 87186; 87426; 87804; 92610; 93005; 93306; 93970; 94003; 94640; 97162; 99291; A6261; C9113; C9803; J0692; J1650; J1815; J2060; J2250; J2270; J2405; J2543; J2704; J3010; J3370; J3475; J3480; J3490; J7040; J7050; J7060; P9016; Q9967; A4315; G0480